=== PATIENT | female | born 1955 | race Caucasian/White ===

== ENCOUNTER 2019-10-29 08:57 | Outpatient (CLI) | payer OTHER, SELFPAY ==
--- NOTE | ~2019-10-29 | MM_ITS ---
EXAMINATION: MM screening [facility] BI w michel HISTORY: Screening mammogram TECHNIQUE: Craniocaudal and mediolateral oblique 3-D tomosynthesis images were obtained and synthetic 2-D images were generated. CAD analysis was submitted and interpreted. COMPARISON: 10/27/2018 BREAST PARENCHYMAL COMPOSITION: The breasts are heterogeneously dense, which may obscure small masses . FINDINGS: Stable bilateral breast asymmetries and benign appearing calcifications. There is no eviden ce of suspicious mass, calcification, or architectural distortion to suggest malignancy in either humberto ast. There has been no suspicious interval change. IMPRESSION: 1. No mammographic evidence of malignancy. 2. Recommend routine screening mammography in one year. BI-RADS Category 2: Benign finding(s). Reviewed, dictated and finalized at location A. ASE AND TECHNICAL RECORDS CLERK
== END 2019-10-29 08:58 | disposition home or self-care (01) ==
LOC: CHSIMG 09:02
PROVIDERS: PCP Family Medicine; Visit Provider Family Medicine
DX: Z12.31 Encounter for screening mammogram for malignant neoplasm of breast (principal)
CPT/HCPCS: 77063; 77067

== ENCOUNTER 2021-02-28 08:28 | Outpatient (CLI) | payer OTHER, SELFPAY ==
--- NOTE | ~2021-02-28 | MM_ITS ---
EXAMINATION: MM screening [facility] BI w michel HISTORY: Screening TECHNIQUE: Craniocaudal and mediolateral oblique 3-D tomosynthesis images were obtained and synthetic 2-D images were generated. CAD analysis was submitted and interpreted. COMPARISON: Comparison to multiple prior studies sequentially, with oldest reviewed study dated 10/27. BREAST PARENCHYMAL COMPOSITION: There are scattered areas of fibroglandular density. FINDINGS: Stable benign-appearing bilateral breast calcifications. There is no evidence of suspicious mass, calcification, or architectural distortion to suggest malignancy in either breast. There has b een no suspicious interval change. IMPRESSION: 1. No mammographic evidence of malignancy. 2. Recommend routine screening mammography in one year. BI-RADS Category 2: Benign finding(s). Reviewed, dictated and finalized at location A.
[2021-02-28 08:39] LABS: Hemoglobin 13.6 g/dL (12.0-15.0); Mean Corpuscular HGB Conc 33.2 g/dL (32.0-36.0); Mean Corpuscular Hemoglobin 30.8 pg (27.0-31.0); Mean Platelet Volume 8.9 fl (9.2-11.8); Platelet Count Result 312 K/mm3 (150-420); Red Blood Count 4.41 M/mm3 (4.20-5.40); Red Cell Distribution Width 11.9 % (11.6-14.4); White Blood Count 9.8 K/mm3 (4.8-10.8)
[2021-02-28 10:05] LABS: Alanine Aminotransferase 26 U/L (14-59); Albumin Level 3.9 g/dL (3.4-5.0); Alkaline Phosphatase 112 U/L (46-116); Anion Gap 10 mmol/L (8-16); Aspartate Amino Transferase 20 U/L (15-37); Bilirubin,Total 0.6 mg/dL (0.00-1.00); Blood Urea Nitrogen 12 mg/dL (7-18); Calcium 9.4 mg/dL (8.5-10.1); Carbon Dioxide 28 mmol/L (21-32); Chloride 106 mmol/L (98-108); Cholesterol 132 mg/dL (0-200); Estimated Glomerular Filt Rate > 60; Glucose 114 mg/dL (70-99); HDL Direct 47 mg/dL (40-60); LDL Cholesterol Calculated 60 mg/dL (<130); Osmolality Calculated 298 mOsm/kg (285-295); Potassium 5.2 mmol/L (3.5-5.1); Sodium 144 mmol/L (136-145); Triglycerides 125 mg/dL (0-150)
[2021-02-28 10:06] LABS: Thyroid Stimulating Hormone Reflex 1.01 u/IU/mL (0.36-3.74)
== END 2021-02-28 08:29 | disposition home or self-care (01) ==
PROVIDERS: PCP Family Medicine; Visit Provider Family Medicine
DX: E11.9 Type 2 diabetes mellitus without complications (principal); Z00.00 Encounter for general adult medical examination without abnormal findings; Z12.31 Encounter for screening mammogram for malignant neoplasm of breast
CPT/HCPCS: 36415; 77063; 77067; 80053; 80061; 84443; 85027

== ENCOUNTER 2021-08-27 10:33 | Outpatient (CLI) | payer OTHER, SELFPAY ==
--- NOTE | 2021-08-27 | ECG_ITS ---
Measurements Intervals [place] Rate: 65 P: 64 SC: 162 QRS: 32 QRSD: 137 T: 12 QT: 409 QTc: 426 Interpretive Statements SINUS RHYTHM RIGHT BUNDLE BRANCH BLOCK CONSIDER INFERIOR INFARCT, AGE INDETERMINATE BASELINE WANDER- I, II, AVR, AVL, AVF ABNORMAL ECG Electronically Signed On 08-27-2021 16:53:30 EMPLOYEE DEVELOPMENT MANAGER by Curtis Fuentes D.O.
[2021-08-27 11:19] LABS: Hematocrit 40.6 % (37.0-47.0); Hemoglobin 13.4 g/dL (12.0-15.0)
[2021-08-27 11:27] LABS: Albumin Level 4.5 g/dL (3.5-5.1); Estimated Glomerular Filt Rate > 60; Glucose 94 mg/dL (65-110)
[2021-08-27 12:12] LABS: Urine Cotinine NEGATIVE
== END 2021-08-27 10:34 | disposition home or self-care (01) ==
PROVIDERS: PCP Family Medicine; Visit Provider Orthopaedic Surgery
DX: M16.11 Unilateral primary osteoarthritis, right hip (principal); E78.5 Hyperlipidemia, unspecified; I25.10 Atherosclerotic heart disease of native coronary artery without angina pectoris; Z01.818 Encounter for other preprocedural examination; I45.10 Unspecified right bundle-branch block
CPT/HCPCS: 80307; 82040; 82565; 82947; 83036; 85014; 85018; 93005

== ENCOUNTER 2021-10-22 07:52 | Outpatient (CLI) | payer OTHER, SELFPAY ==
[2021-10-22 09:23] LABS: Basophils Absolute Auto 0.1 K/mm3 (0.0-0.1); Basophils Percent Auto 1.1 % (0.2-1.2); Eosinophils Absolute Auto 0.3 K/mm3 (0-0.3); Eosinophils Percent Auto 3.2 % (0-4.4); Hematocrit 40.5 % (37.0-47.0); Hemoglobin 13.1 g/dL (12.0-15.0); Immature Granulocyte Absolute 0.05 K/mm3 (0.00-0.031); Immature Granulocyte Percent A 0.5 % (0-0.5); Lymphocytes Absolute Auto 2.78 K/mm3 (0.9-3.2); Lymphocytes Percent Auto 28.7 % (18.3-44.2); Mean Corpuscular HGB Conc 32.3 g/dl (32-36); Mean Corpuscular Volume 92.9 fl (80-100); Mean Platelet Volume 9.1 fl (7.4-10.4); Monocytes Absolute Auto 0.8 K/mm3 (0.1-0.6); Monocytes Percent Auto 7.8 % (2.6-8.5); Neutrophils Absolute Auto 5.7 K/mm3 (1.3-6.7); Neutrophils Percent Auto 58.7 % (45.5-73.1); Platelet Count Result 315 k/mm3 (150-375); Red Blood Count 4.36 M/mm3 (4.2-5.4); Red Cell Distribution Width 12.3 % (11.5-14.5); White Blood Count 9.7 K/mm3 (4.5-10.0)
[2021-10-22 09:33] LABS: Albumin Level 4.4 g/dL (3.5-5.1); Estimated Glomerular Filt Rate > 60; Glucose 107 mg/dL (65-110)
[2021-10-22 09:45] LABS: Urine Cotinine NEGATIVE
== END 2021-10-22 07:53 | disposition home or self-care (01) ==
LOC: ANHSURGERY 08:03
PROVIDERS: PCP Family Medicine; Visit Provider Orthopaedic Surgery
DX: M16.11 Unilateral primary osteoarthritis, right hip (principal); Z01.818 Encounter for other preprocedural examination
CPT/HCPCS: 80307; 82040; 82565; 82947; 85025; 87081

== ENCOUNTER 2021-11-09 15:34 | Observation (INO) | payer OTHER, SELFPAY ==
[2021-10-22 08:09] VITALS: BMI 25.0
--- NOTE | 2021-10-22 08:35 | PC.NURSE ---
Report to the Outpatient Waiting Room, entrance under the green pavilion located off [facility], at time 0600 on date __11/08/21 . OR Time: _729 . - You and your visitor will be asked a series of questions to screen for COVID 19 for your protection. - A mask is required within the hospital. Preoperative COVID Testing Requirements: No COVID Test needed if: (proof is required; if not received patient will have Rapid Test prior to entry) - Patient has received COVID Vaccine at least 14 days prior to procedure date or - Patient has positive COVID test result within last 90 days of surgery date. COVID Test needed if above criteria is not met If not COVID vaccinated a COVID test must be conducted within 72 hours of surgery and patient is asked to isolate self from time of testing until procedure. You will go to the [facility] for your COVID testing. The [facility] is located at the corner of [address] [facility]. You will only be called if COVID results are positive and your surgeon may reschedule your elective surgery date. Patients may have clear liquids (water, carbonated beverages, clear teas, apple juice) until 3 hours prior to surgery with a maximum of 20 ounces. - No food from midnight until time of surgery - Infants may have breast milk until 4 hours before surgery, infant formula 6 hours prior to surgery. - Children will be allowed to drink immediately following surgery. If applicable, please bring a bottle or sippy cup to assist with drinking. Juice, water, soda, and popsicles are readily available. For infants on formula, please bring formula the day of surgery. Pacifiers are allowed. Take the following medications with a SIP of water the morning of surgery: _METOPROLOL,SERTRALINE Medications to discontinue per physician ASPIRIN AND PLAVIX 7 DAYS PRE OP Date to take last dose_10/31/21 Please no make-up, nail [place], hairspray, perfume, deodorant, or body powder the day of surgery. No jewelry (including any body piercings) or valuables the day of surgery, leave them at home. Please take a shower or bath the night before, or the morning of, surgery with an antibacterial soap. Wear comfortable, loose fitting clothing. Children are encouraged to wear pajamas. - Jewelry must be removed prior to entering the operating room. Rings and piercings that are not removed may be cut off. - The hospital will not accept responsibility for valuables. - Please leave all valuables, including medications, at home the day of surgery. If you are going home after surgery, a licensed courtesy van driver must drive you home. - NO public transportation without another adult. - We recommend that an adult stay with you for 24 hours following discharge. - We also recommend that you do not drive, make important decision, drink alcoholic beverages, or take any drugs that were not prescribed by your health care provider for at least 24 hours after your discharge time. For Pediatric surgeries, we recommend two adults accompany the child home (only one inside the building at this time). One visitor will be allowed to accompany the patient into the hospital. Patients visitor will be instructed to remain with patient at all times or leave the building. We will allow the visitor to come back to the postoperative area when patient is ready. Follow any additional instructions given to you from your surgeon. VERBAL/WRITEN instructions given to __PATIENT and asked if any additional questions and then verbalized understanding. Patient advised to call surgeon office or pre surgery nurse liaison [phone] if any additional questions.
[2021-10-22 08:49] VITALS: BP 131/74; PULSE 70; RESP 18; TEMP 36.6; O2SAT 99
--- NOTE | 2021-11-07 12:35 | WPDANESEPPF ---
Anes - Initial Pre Proc Eval Procedure: Operation Date: 11/08/21 07:30 Proposed Procedures p Right Total Hip Arthroplasty - Baldev Aguirre MD Date/Time: 11/07/21 12:35 Surgeon: Baldev Aguirre MD Pre Op Diagnosis: primary oa right hip Patient Data Age: 65 Gender: F Height: 1.71 m Weight: 73.7 kg Last Vital Signs Temp 36.6 C 10/22/21 08:49 Pulse 70 10/22/21 08:49 Resp 18 10/22/21 08:49 BP 131/74 10/22/21 08:49 Pulse Ox 99 10/22/21 08:49 Allergies Allergy/AdvReac Type Severity Reaction Status Date / Time Penicillins AdvReac Mild RASH Verified 11/08/21 06:04 CHILD Home Medications Medication Instructions Recorded Confirmed Type aspirin 81 mg tablet,delayed 81 mg PO DAILY #90 tablet 09/28/19 11/08/21 Rx release clopidogrel 75 mg tablet 75 mg PO DAILY #90 tablet 12/27/19 11/08/21 Rx sertraline 25 mg tablet 25 mg PO DAILY #90 tablet 05/22/21 11/08/21 Rx metoprolol tartrate 12.5 mg PO BID 07/02/21 11/08/21 History atorvastatin 40 mg PO QPM 10/22/21 11/08/21 History Patient hx anesthesia problems: none Family hx anesthesia problems: none Results Review: All pre-operative results and documents have been reviewed as part of the pre-operative evaluation. 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 42 pack-year history Living arrangements: with family Additional living arrangements comments: . 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 Informed Consent: The patient's anesthetic plan and its attendant risks and benefits were discussed with the patient/family/POA. Questions were solicited and answers provided to the satisfaction of the patient/family/POA.
[2021-11-08] VITALS (13 sets, daily range): BP systolic 106–134; BP diastolic 54–71; PULSE 69–84; RESP 12–20; TEMP 36.1–36.6; O2SAT 93–100
[2021-11-08] MEDS: LACTATED RINGERS 1,000 ML 30 ML IV CONT (06:25)
[2021-11-08] MEDS: ACETAMINOPHEN 500 MG TABLET 1000 MG PO (06:42)
[2021-11-08] MEDS: TRANEXAMIC ACID 1,000MG/ISO100 1,000 MG/100 ML BAG 200 MG IVPB (07:05)
--- NOTE | 2021-11-08 07:22 | WPDHPUPDATE1 ---
History and Physical Update Update Date/Time: 11/08/21 07:22 History and Physical has been reviewed, including an updated exam of the patient. There are NO changes in the patient's condition. Risks, benefits, and alternatives have been discussed and questions answered. Patient agrees to proceed with procedure.
[2021-11-08] MEDS: ceFAZolin 2 GM/D5W 50 ML 2 GM/50 ML BAG IVPB ×2 (07:38→16:17)
--- NOTE | 2021-11-08 11:00 | SUR.PHASEI ---
1027 2 VIEWS OF XRAY TAKEN OF RT HIP IN PACU.
[2021-11-08] MEDS: SODIUM CHLORIDE 0.9% IV 1,000 ML 125 ML IV CONT (11:46)
--- NOTE | 2021-11-08 13:07 | PCOTNOTE ---
Attempted to see pt. for evaluation. Pt. finishing up with physical therapy, reporting that she almost had syncopal episode while ambulating and needs to rest.
--- NOTE | 2021-11-08 17:13 | W.PM.PROC2 ---
Procedure Note - Detailed Date of Procedure 11/08/21 Pre-op Diagnosis Primary oa right hip Post-op Diagnosis Other ( 1. Primary osteoarthritis right hip. 2. Abductor tendon tear.) Procedure Performed Right Total Hip Arthroplasty Surgeon Baldev Aguirre MD Car Shifter Gisell Zazueta PA-C Anesthesia General Findings High-grade partial abductor muscle tendon disruption. Repair accomplished with multiple #5 Ethibond Sridhar-Kobe sutures through bone. Description of Procedure The patient was given preoperative antibiotics. A general anesthetic was administered. The patient was carefully placed in the lateral decubitus position on the PEG board. The shoulders and hips were carefully positioned for component and leg length positioning reference. The hip was prepped and draped in the usual sterile fashion. A longitudinal incision was created over the posterior aspect of the greater trochanter. Careful dissection was brought down through the deep fascia with electrocautery. A minimally invasive optimized posterior approach to the hip was performed. The short external rotators and capsule were taken down in an L-shaped capsulotomy. The tissue was tagged for later repair using number 2 high strength suture. The femoral neck was measured and taken in situ. The femoral head was removed. The acetabulum was carefully exposed. The inferior capsule was released. The labrum was resected. The acetabulum was sequentially reamed to one over the intended cup size. The cup was impacted into position with excellent press-fit. Typical anatomic landmarks, including the bony contact points as well as the inferior transverse acetabular ligament were used to confirm cup positioning with preoperative templating. Attention was turned to the femur, which was carefully exposed. The hip was reamed and then broached sequentially. Excellent press-fit was obtained with the broach. The hip was trialed. Measurements were utilized, including the lesser trochanter as well as the center of the femoral head and the tip of the trochanter, and excellent assessment of the offset and leg lengths were confirmed. The real component was impacted into position. Trialing confirmed appropriate leg length and offset with soft tissue balancing as well apparent feel of the leg, both at the knee and the heel. Soft tissues were assessed using the the iliotibial band. Reduction of the posterior capsule and external rotators were also used as a secondary assessment. The hip was copiously irrigated with pulsatile lavage antibiotic solution periodically throughout the procedure. The real components were then assembled and reduced. The hip was stable throughout typical maneuvers, including extension, external rotation to 70 degrees, the position of sleep as well as flexion to 90 degrees with internal rotation past 45 degrees. The shake test confirmed stability without impingement. Osteophytes were removed as necessary. Attention was turned to the gluteus medius abductor injury. High-grade partial bursal sided tearing. This was mobilized and repaired with multiple heavy Ethibond Sridhar-Kobe sutures. Free needle was used as necessary to pass deep through the trochanteric bone. The repair was quite davis. The short external rotators and capsule were then repaired back to the posterior trochanter through drill holes. The deep fascia was repaired with running number 2 Quill suture, followed by 0 Stratafix suture and 2-0 Stratafix suture in the dermis. Steri-Strips were placed on the skin, followed by a sterile silver occlusive dressing. There were no complications. Meticulous hemostasis was maintained with the AquaMantys device. The patient was brought to the recovery room in stable condition. There were no complications. Implants The Accolade II hip stem, 127 degree size 6 , was utilized with excellent press-fit. The 52 mm Trident II acetabular component was impacted with excellent pre
[2021-11-08] MEDS: ATORVASTATIN 40 MG TABLET PO (17:51)
[2021-11-08] MEDS: METOPROLOL TARTRATE 12.5 MG TABLET PO (20:23)
[2021-11-08] MEDS: FAMOTIDINE 20 MG TABLET PO (20:23)
[2021-11-08] MEDS: SENNA/DOCUSATE SODIUM TABLET 2 TAB PO (20:23)
[2021-11-09] VITALS (8 sets, daily range): BP systolic 102–107; BP diastolic 53–58; PULSE 73–90; RESP 14–16; TEMP 36.6–36.9; O2SAT 94–100
--- NOTE | ~2021-11-09 | XR_ITS ---
EXAMINATION: XR chest 1V portable DATE: 11/10/2021 02:51 INDICATION: Shortness of breath. TECHNIQUE: A single frontal view of the chest was obtained. COMPARISON: Chest 2 views 05/25/2018, chest CT 11/10/2021 FINDINGS: There is a diffuse interstitial pattern in the lungs. There are mild airspace opacities in the perihilar regions. No pleural effusion or pneumothorax. The heart size is normal. Calcified media stinal lymph nodes are consistent with old granulomatous disease. Median sternotomy wires are noted. IMPRESSION: 1. Diffuse lung disease, likely mild pulmonary edema. Reviewed, dictated and finalized at location A. [employer] SALESPERSON
--- NOTE | ~2021-11-09 | XR_ITS ---
EXAMINATION: XR hip RT min 2V DATE: 11/08/2021 10:30 INDICATION: Total right hip arthroplasty. Postop. TECHNIQUE: 2 views of right hip were obtained. COMPARISON: Right hip radiographs 07/11/2021 FINDINGS: There is a total right hip arthroplasty in near-anatomic alignment. No fracture. There is g as in the soft tissues, consistent with recent surgery. IMPRESSION: 1. Total right hip arthroplasty in near-anatomic alignment. Reviewed, dictated and finalized at location A. TER PATTERN CASTER
--- NOTE | ~2021-11-09 | CT_ITS ---
EXAMINATION: CTA chest PE protocol DATE: 11/10/2021 04:28 INDICATION: Shortness of breath. TECHNIQUE: Computed tomography angiography (CTA) of the chest was performed with 100 mL Omnipaque-350 intravenous contrast timed to evaluate the pulmonary arteries. Coronal maximum intensity projection 3D-reconstructions were created by the technologist. Automated exposure control and iterative reconst ruction technique were employed. The dose-length product was 395.31 mGy-cm. COMPARISON: Chest CT 10/27/2018 FINDINGS: The lungs demonstrated diffuse smooth septal thickening. There are patchy groundglass opaci ties in the upper lobes and lower lobes with a lower lobe predominance. There is a cluster of centril obular nodules in right lower lobe. There is mild emphysema. Calcified mediastinal lymph nodes are co nsistent with old granulomatous disease. There are small pleural effusions. The heart size is normal. There are changes of coronary artery bypass grafting. There is no pulmonary embolus. Calcifications in the liver and spleen are consistent with old granulomatous disease. There is mild thoracic spondyl osis. IMPRESSION: 1. No pulmonary embolus. 2. Diffuse lung disease, likely moderate pulmonary edema. 3. Small pleural effusions. 4. Chronic cluster of centrilobular nodules in right lower lobe, consistent with infection/inflammati on. 5. Mild emphysema. Reviewed, dictated and finalized at location A. ST IMPRESSION: 1. No pulmonary embolus. 2. Diffuse lung disease, likely moderate pulmonary edema. 3. Small pleural effusions. 4. Chronic cluster of centrilobular nodules in right lower lobe, consistent wit h infection/inflammation. 5. Mild emphysema.
[2021-11-09] MEDS: ceFAZolin 2 GM/D5W 50 ML 2 GM/50 ML BAG IVPB ×2 (00:03→08:22)
[2021-11-09] MEDS: CYCLOBENZAPRINE HCL 10 MG TABLET PO (03:24)
--- NOTE | 2021-11-09 08:07 | PCPTNOTE ---
Patient refused treatment this session due to patient wanting to rest at this time. Patient reported she did not sleep good last night and she just got back to bed and wants to rest at this time.
[2021-11-09] MEDS: FAMOTIDINE 20 MG TABLET PO ×2 (08:22→21:07)
[2021-11-09] MEDS: METOPROLOL TARTRATE 12.5 MG TABLET PO ×2 (08:22→21:07)
[2021-11-09] MEDS: SERTRALINE HCL 25 MG TABLET PO (08:22)
[2021-11-09] MEDS: polyethylene glycoL 3350 17 GM POWD.PACK PO (08:22)
[2021-11-09] MEDS: SENNA/DOCUSATE SODIUM TABLET 2 TAB PO ×2 (08:23→21:07)
[2021-11-09] MEDS: ASPIRIN 81 MG ENTERIC TABLET PO (08:23)
[2021-11-09] MEDS: CLOPIDOGREL BISULFATE 75 MG TABLET PO (08:23)
[2021-11-09] MEDS: oxyCODONE HCL (*CRX) 5 MG TAB IR PO ×4 (08:30→21:07)
--- NOTE | 2021-11-09 09:31 | WPDANESPN ---
Anes - Prog Note Post-Op Date/Time: 11/09/21 09:31 Cardiovascular status: normal Respiratory status: normal Airway patency: baseline Mental status: baseline Post-Op hydration status: normal Vital Signs: Last Vital Signs Temp 36.9 C 11/09/21 05:04 Pulse 80 11/09/21 08:22 Resp 14 11/09/21 05:04 BP 107/58 L 11/09/21 05:04 Pulse Ox 100 11/09/21 05:04 Pain Score (VAS): 0 I/O: Intake & Output 11/08/21 11/09/21 11/09/21 23:59 07:59 15:59 Intake Total 1600 550 Output Total 700 Balance 1600 -150 Post-procedural complaints: none Patient Feedback: Patient satisfied with anesthetic care.
--- NOTE | 2021-11-09 14:21 | PM.PNORT ---
Progress Note: A&P Assessment and Plan (1) Status post total hip replacement, right: Code(s): Z96.641 - Presence of right artificial hip joint Status: Acute Assessment and Plan: Postop day 1: Right total Hip arthroplasty. Patient tolerated procedure well. Abductor tendon repair as well. No numbness or tingling. Having trouble with pain control and PT. She will need to be partial weight bearing with a walker for 3 months. Due to pain control issues and abductor tendon repair, patient will be discharged tomorrow. We had a lengthy discussion regarding postoperative wound care, limitations, expectations, and exercises. Patient shows good understanding. He has had initial physical therapy and is tolerating it well. DVT prophylaxis: 81 mg baby aspirin b.i.d. for 14 days. May resume home Plavix. Compression socks. Short frequent walks. Pain medication: Percocet. Patient has followup appointment with Dr. Aguirre in 3 weeks. Subjective Subjective Date/Time Seen: 11/09/21 14:21 Patient is having difficulty controlling pain and is having some difficulty with PT. No other complaints. Review of Systems Review of Systems: All systems reviewed & are unremarkable except as noted in HPI and below Exam Narrative: Thin,65 y/o female. Resting comfortably in chair. Wearing compression socks bilaterally. Dressing dry and intact with no drainage. Moderate swelling. No ecchymosis. No erythema. No hematoma. Range of motion limited due to pain. Calf nontender. Thigh nontender. Neurologic status intact. No varicosities. Distal pulses palpable. Objective Data Vital Signs Vital Signs: Vital Signs - 24 hr 11/08/21 17:59 11/08/21 21:18 11/09/21 01:03 Temperature 97.8 F 97.4 F L 98.2 F Pulse Rate 71 72 73 Respiratory Rate 18 14 14 Blood Pressure 130/68 106/55 L 104/53 L Pulse Oximetry 99 97 96 11/09/21 05:04 11/09/21 08:22 11/09/21 10:00 Temperature 98.5 F 97.8 F Pulse Rate 80 80 79 Respiratory Rate 14 16 Blood Pressure 107/58 L 104/53 L Pulse Oximetry 100 95 11/09/21 14:00 Temperature 98.2 F Pulse Rate 80 Respiratory Rate 16 Blood Pressure 105/55 L Pulse Oximetry 98 Intake/Output Intake/Output: Intake & Output 11/06/21 11/07/21 11/08/21 11/09/21 23:59 23:59 23:59 23:59 Intake Total 1850 790 Output Total 700 Balance 1850 90 Meds/Results Medications: Active Medications Generic Name Dose Route Start Last Admin Trade Name Freq PRN Reason Stop Dose Admin Acetaminophen 650 mg 11/08/21 11:19 Acetaminophen 325 Mg Tablet PO Q6H PRN Mild Pain (1-3) or Fever Aspirin 81 mg 11/09/21 09:00 11/09/21 08:23 Aspirin 81 Mg Enteric Tablet PO 81 mg DAILY RASHID Administration Atorvastatin Calcium 40 mg 11/08/21 18:00 11/08/21 17:51 Atorvastatin 40 Mg Tablet PO 40 mg QPM RASHID Administration Clopidogrel Bisulfate 75 mg 11/09/21 09:00 11/09/21 08:23 Clopidogrel Bisulfate 75 Mg Tablet PO 75 mg DAILY RASHID Administration Cyclobenzaprine HCl 10 mg 11/08/21 11:19 11/09/21 03:24 Cyclobenzaprine Hcl 10 Mg Tablet PO 10 mg Q8H PRN Administration Muscle Spasm Famotidine 20 mg 11/08/21 21:00 11/09/21 08:22 Famotidine 20 Mg Tablet PO 20 mg Q12HR RASHID Administration Metoprolol Tartrate 12.5 mg 11/08/21 21:00 11/09/21 08:22 Metoprolol Tartrate 12.5 Mg Tablet PO 12.5 mg Q12HR RASHID Administration Naloxone HCl 0.1 mg 11/08/21 11:19 Naloxone Hcl 0.4 Mg/Ml Vial IV PUSH Q2M PRN Opiate Reversal Ondansetron HCl 4 mg 11/08/21 11:19 Ondansetron Inj 4 Mg/2 Ml Vial IV PUSH Q4H PRN Nausea And Vomiting Oxycodone HCl 5 mg 11/08/21 11:19 11/09/21 12:37 Oxycodone Hcl (*Crx) 5 Mg Tab Ir PO 5 mg Q4H PRN Administration Pain Rated 4-6 Oxycodone HCl 10 mg 11/08/21 11:19 Oxycodone Hcl (*Crx) 5 Mg Tab Ir PO Q4H PRN Pain Rated 7-10 Polyethylene Glycol 17 gm 11/09
--- NOTE | 2021-11-09 14:38 | P.DS_ITS ---
DS: Admitting Diagnosis Discharge Date 11/10/21 Admitting Diagnosis OA Right hip DS: Discharge Diagnosis Discharge Diagnosis (1) Status post total hip replacement, right: Code(s): Z96.641 - Presence of right artificial hip joint Status: Acute Assessment and Plan: Postop day 2: Right total Hip arthroplasty. Patient tolerated procedure well. Abductor tendon repair as well. No numbness or tingling. Having trouble with pain control and PT. She will need to be partial weight bearing with a walker for 3 months. We had a lengthy discussion regarding postoperative wound care, limitations, expectations, and exercises. Patient shows good understanding. He has had initial physical therapy and is tolerating it well. DVT prophylaxis: 81 mg baby aspirin b.i.d. for 14 days. May resume home Plavix. Compression socks. Short frequent walks. Pain medication: Percocet. Patient has followup appointment with Dr. Aguirre in 3 weeks. DS: Summary Hospital Course Reason for hospitalization: Total hip arthroplasty Hospital Course: Patient tolerated procedure well. Has had initial PT/OT and made good progress. Status at Discharge Functional status at discharge: uses cane/walker Overall status at discharge: patient is progressing back to baseline Time Spent with Patient Time attestation: Total time spent providing and/or coordinating discharge services: Exam Narrative: Overweight 65 y/o female. Resting comfortably in bed. Wearing compression socks bilaterally. Dressing dry and intact with no drainage. Moderate swelling. No ecchymosis. No erythema. No hematoma. Range of motion limited due to pain. Calf nontender. Thigh nontender. Neurologic status intact. No varicosities. Distal pulses palpable. Discharge Plan Discharge Patient Disposition: Home, Self-Care Discharge Instructions: See green instruction sheet Stand Alone Forms: General Discharge Instructions Follow-up/Referrals: Gisell Zazueta PA [Physician Psychologist Chief] - Discharge Medications: New oxycodone-acetaminophen 5-325 mg tablet 1 - 2 tablet PO Q4-6H MDD 6 PRN (Reason: pain) Qty: 30 RF: 0 Continued aspirin [Adult Low Dose Aspirin] 81 mg tablet,delayed release (DR/EC) 81 mg PO DAILY Qty: 90 RF: 0 atorvastatin 40 mg tablet 40 mg PO QPM RF: 0 metoprolol tartrate 25 mg tablet 12.5 mg PO BID RF: 0 clopidogrel [Plavix] 75 mg tablet 75 mg PO DAILY Qty: 90 RF: 1 sertraline 25 mg tablet 25 mg PO DAILY Qty: 90 RF: 2
--- NOTE | 2021-11-09 16:20 | PM.PNORT ---
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 She has more pain than she did after the contralateral hip. Mobilization is slow. Examination Mild swelling. No drainage. Neurologic status intact. Impression Slow early progress after total hip arthroplasty due to the abductor muscle repair. We discussed the risks associated with future weakness. Recommend she use the walker for list 6 weeks and possibly 3 months. She should stay another night for pain control and observation. Plan to discharge home in the morning. Subjective Subjective Date/Time Seen: 11/09/21 16:20 Objective Data Vital Signs Vital Signs: Vital Signs - 24 hr 11/08/21 17:59 11/08/21 21:18 11/09/21 01:03 Temperature 36.6 C 36.3 C L 36.8 C Pulse Rate 71 72 73 Respiratory Rate 18 14 14 Blood Pressure 130/68 106/55 L 104/53 L Pulse Oximetry 99 97 96 11/09/21 05:04 11/09/21 08:22 11/09/21 10:00 Temperature 36.9 C 36.6 C Pulse Rate 80 80 79 Respiratory Rate 14 16 Blood Pressure 107/58 L 104/53 L Pulse Oximetry 100 95 11/09/21 14:00 Temperature 36.8 C Pulse Rate 80 Respiratory Rate 16 Blood Pressure 105/55 L Pulse Oximetry 98 Intake/Output Intake/Output: Intake & Output 11/06/21 11/07/21 11/08/21 11/09/21 23:59 23:59 23:59 23:59 Intake Total 1850 790 Output Total 700 Balance 1850 90 Meds/Results Medications: Active Medications Generic Name Dose Route Start Last Admin Trade Name Freq PRN Reason Stop Dose Admin Acetaminophen 650 mg 11/08/21 11:19 Acetaminophen 325 Mg Tablet PO Q6H PRN Mild Pain (1-3) or Fever Aspirin 81 mg 11/09/21 09:00 11/09/21 08:23 Aspirin 81 Mg Enteric Tablet PO 81 mg DAILY RASHID Administration Atorvastatin Calcium 40 mg 11/08/21 18:00 11/08/21 17:51 Atorvastatin 40 Mg Tablet PO 40 mg QPM RASHID Administration Clopidogrel Bisulfate 75 mg 11/09/21 09:00 11/09/21 08:23 Clopidogrel Bisulfate 75 Mg Tablet PO 75 mg DAILY RASHID Administration Cyclobenzaprine HCl 10 mg 11/08/21 11:19 11/09/21 03:24 Cyclobenzaprine Hcl 10 Mg Tablet PO 10 mg Q8H PRN Administration Muscle Spasm Famotidine 20 mg 11/08/21 21:00 11/09/21 08:22 Famotidine 20 Mg Tablet PO 20 mg Q12HR RASHID Administration Metoprolol Tartrate 12.5 mg 11/08/21 21:00 11/09/21 08:22 Metoprolol Tartrate 12.5 Mg Tablet PO 12.5 mg Q12HR RASHID Administration Naloxone HCl 0.1 mg 11/08/21 11:19 Naloxone Hcl 0.4 Mg/Ml Vial IV PUSH Q2M PRN Opiate Reversal Ondansetron HCl 4 mg 11/08/21 11:19 Ondansetron Inj 4 Mg/2 Ml Vial IV PUSH Q4H PRN Nausea And Vomiting Oxycodone HCl 5 mg 11/08/21 11:19 11/09/21 12:37 Oxycodone Hcl (*Crx) 5 Mg Tab Ir PO 5 mg Q4H PRN Administration Pain Rated 4-6 Oxycodone HCl 10 mg 11/08/21 11:19 Oxycodone Hcl (*Crx) 5 Mg Tab Ir PO Q4H PRN Pain Rated 7-10 Polyethylene Glycol 17 gm 11/09/21 09:00 11/09/21 08:22 Polyethylene Glycol 3350 17 Gm Powd.Pack PO 17 gm QAM RASHID Administration Senna/Docusate Sodium 2 tab 11/08/21 21:00 11/09/21 08:23 Senna/Docusate Sodium Tablet PO 2 tab Q12HR RASHID Administration Sertraline HCl 25 mg 11/09/21 09:00 11/09/21 08:22 Sertraline Hcl 25 Mg Tablet PO 25 mg DAILY RASHID Administration Radiology Results: ITS Impressions Hip X-Ray 11/08/21 10:45 IMPRESSION: 1. Total right hip arthroplasty in near-anatomic alignment.
[2021-11-09] MEDS: ATORVASTATIN 40 MG TABLET PO (17:37)
[2021-11-10] VITALS (22 sets, daily range): BP systolic 70–109; BP diastolic 45–71; PULSE 79–107; RESP 16–30; TEMP 36.1–37.2; O2SAT 75–100
--- NOTE | 2021-11-10 | ECHO_ITS ---
Patient Info Name: Jorge Min Age: 65 years : 1955 Gender: Female Ht: 67 in Wt: 159 lbs BSA: 1.86 m2 HR: 83 bpm BP: 97 / 65 mmHg Heart Rhythm: Sinus Rhythm Technical Quality: Fair Exam Date: 11/10/2021 9:26 AM Exam Location: [facility] Pulmonary Exam Room: ICU1 Patient Status: Inpatient Admit Date: 11/09/2021 Staff Ordering Physician: Tanisha Veloz MD Pulp Bleacher: Rose Rainey RDCS Attending Provider: Baldev Aguirre MD Referring Physician: Roselia SCHMIDT; Exam Type: CA echo dop color flow w con Study Info Indications - HIGH RISK PCI Complete two-dimensional, color flow and Doppler transthoracic echocardiogram is performed with contrast to opacify the left ventricle and to improve the deliniation of the left ventricle endocardial borders. Contrast/Agitated Saline Contrast/Ag. Saline: Definity Amount: 2.00 ml Administered By: Rose Rainey [facility] Existing IV Access: Yes IV Access Condition: patent with no signs of infiltration Summary 1. Normal left ventricular size and thickness. Akinesis of the mid and distal anterior wall, distal septum, and apical segments. Moderate hypokinesis of the inferior wall. Ejection fraction calculated to be 42%, visually 40-45%. Grade 2 diastolic dysfunction is present. 2. Normal sinus rhythm. 3. Left atrial chamber dimension is mildly enlarged. 4. There is mild mitral valve regurgitation. 5. There is mild tricuspid valve regurgitation. 6. Moderate pulmonary hypertension, estimated pulmonary arterial systolic pressure is 57 mmHg. 7. Somewhat technically difficult study; definity echo contrast used. Left Ventricle Left ventricular chamber dimension is normal. Left ventricular systolic function is moderately reduced, estimated at 40-45%. There is no increased left ventricular wall thickness. Left ventricular septal wall motion is normal. The left ventricular diastolic function is grade II diastolic dysfunction. Right Ventricle Right ventricular chamber dimension is normal. Right ventricular systolic function is normal. Left Atria Left atrial chamber dimension is mildly enlarged. Right Atria Right atrial chamber dimension is normal. Aortic Valve The aortic valve is trileaflet. There is mild aortic valve sclerosis. There is no aortic valve stenosis. There is no aortic valve regurgitation. Pulmonic Valve The pulmonic valve is normal. There is no pulmonic valve stenosis. There is no pulmonic regurgitation. Mitral Valve The mitral valve has normal leaflets. There is no mitral valve stenosis. There is mild mitral valve regurgitation. Tricuspid Valve The tricuspid valve leaflets are normal. There is no significant tricuspid valve stenosis. There is mild tricuspid valve regurgitation. Moderate pulmonary hypertension, estimated pulmonary arterial systolic pressure is 57 mmHg. Pericardium/Pleural The pericardium appears normal. There is no pericardial effusion. Inferior Vena Cava Normal inferior vena cava with >50% collapse upon inspiration consistent with Empty right atrial pressure, 10 mmHg. Aorta The aortic root size at the sinus of Valsalva is normal. The prox ascending aorta size is normal. Left Ventricular Outflow Tract Name Value Normal
[2021-11-10] MEDS: SODIUM CHLORIDE 0.9% IV 500 ML 999 ML IV CONT (01:10)
--- NOTE | 2021-11-10 02:31 | ECG_ITS ---
Measurements Intervals [place] Rate: 104 P: 66 IN: 150 QRS: 42 QRSD: 128 T: 37 QT: 366 QTc: 483 Interpretive Statements SINUS TACHYCARDIA INDETERMINATE AXIS RIGHT BUNDLE BRANCH BLOCK [120+ ms QRS DURATION, UPRIGHT V1, 40+ ms S IN I/aVL/V4/V5/V6] MARKED DIFFUSE ST DEPRESSION, CONSIDER SUBENDOCARDIAL INJURY [0.2+ mV ST DEPRESSION] COMPARED TO ECG 08/27/2021 11:10:08 [address] AND DIFFUSE [address] DEPRESSION NOW PRESENT Electronically Signed On 11-10-2021 13:18:07 SENIOR PARTNER by Brianna Pop M.D.
[2021-11-10 03:01] LABS: Alveolar/Arterial O2 Gradient 221.4 mmHg; Base Excess ABG -3.3 mEq/l (+/-2.0); Carboxyhemoglobin 0.1 % THb (0-2.0); Fractional Inspired Oxygen 45 %; Methemoglobin ABG 0.4 %THb (0-1.5); Oxygen Content ABG 14.2 %vol (16.0-22.0); Oxyhemoglobin 86.4 % THb (90.0-100.0); PO2 ABG 59.6 mmHg (80.0-100.0); PO2 FiO2 Ratio Arterial Blood 1.32 %; Reduced Hemoglobin 13.1 %THb (0-5.0); Site Drawn RIGHT BRACHIAL; Total Hemoglobin 11.7 g/dL (12.0-18.0); pH ABG 7.395 (7.350-7.450)
[2021-11-10 03:02] LABS: Device NASAL CANNULA
[2021-11-10 03:14] LABS: Hemoglobin 10.6 g/dL (12.0-15.0); Mean Corpuscular HGB Conc 30.3 g/dl (32-36); Mean Corpuscular Hemoglobin 30.5 pg (26-34); Mean Corpuscular Volume 100.9 fl (80-100); Mean Platelet Volume 9.2 fl (7.4-10.4); Platelet Count Result 268 k/mm3 (150-375); Red Blood Count 3.47 M/mm3 (4.2-5.4)
[2021-11-10 03:43] LABS: Alanine Aminotransferase 16 U/L (4-35); Albumin Level 3.4 g/dL (3.5-5.1); Alkaline Phosphatase 71 U/L (38-126); Anion Gap 4 mmol/L (8-16); Aspartate Amino Transferase 63 U/L (14-36); Bilirubin,Total 1.1 mg/dL (0.2-1.3); Blood Urea Nitrogen 14 mg/dL (7-17); Calcium 7.7 mg/dL (8.4-10.2); Carbon Dioxide 23 mmol/L (22-30); Chloride 107 mmol/L (98-107); Estimated CRCL calculation 70 ml/min; Estimated Glomerular Filt Rate > 60; Glucose 137 mg/dL (65-110); Potassium 3.9 mmol/L (3.4-5.0); Sodium 134 mmol/L (137-145)
[2021-11-10 03:52] LABS: NT Pro B Type Natriuretic Pept 3740 pg/mL (5-100)
--- NOTE | 2021-11-10 04:12 | PM.IMCN ---
Assessment and Plan Assessment and plan (1) Cardiogenic shock: Code(s): R57.0 - Cardiogenic shock Status: Acute (2) Non-STEMI (non-ST elevated myocardial infarction): Code(s): I21.4 - Non-ST elevation (NSTEMI) myocardial infarction Status: Acute (3) Acute respiratory failure with hypoxia: Code(s): J96.01 - Acute respiratory failure with hypoxia Status: Acute (4) Status post total hip replacement, right: Code(s): Z96.641 - Presence of right artificial hip joint Status: Acute Additional Plan Patient developed sudden hypotension and profuse diaphoresis. EKG confirmed evidence of subendocardial injury. Patient developed acute hypoxic respiratory failure after minimal IV fluid bolus. Imaging demonstrated pulmonary vascular congestion an EKG confirm sub endocardial injury. Patient has been transferred to the ICU the children's zoo caretaker and virtualization architect were consulted. Patient was started on a heparin drip per protocol. Stat CT of the chest was negative for pulmonary embolism. Patient was started on Levophed for pressor support as discussed above. Patient received IV Lasix and a Deleon catheter was placed. Repeat EKG was per formed and cardiology was updated as to the patient's condition. Patient was subsequently taken to label folder. Serial troponins have been ordered. Will titrate supplemental oxygen to maintain O2 sats of 92%. Patient is currently on 12 L nasal cannula. Given patient's leukocytosis S she has been placed on empiric antibiotic therapy with Rocephin and azithromycin. Blood cultures have been obtained. 120 minutes spent in critical care activities. Due to a high probability of clinically significant, life threatening deterioration, the patient required my highest level of preparedness to intervene emergently and I personally spent this critical care time directly and personally managing the patient. This critical care time included obtaining a history; examining the patient; pulse oximetry; ordering and review of studies; arranging urgent treatment with development of a management plan; evaluation of patient's response to treatment; frequent reassessment; and discussions with other providers. It was exclusive of separately billable procedures and treating other patients and teaching time. Please see Assessment and Plan section and the rest of the note for further information on patient assessment and treatment. HPI Data of Consult Consult date: 11/10/21 Requesting Physician: Baldev Aguirre MD Primary Care Provider: Kelby Lew DO Consult Narrative Narrative: Jorge Min is a 65 year old female with a past medical history of hypertension, hyperlipidemia and multivessel coronary artery disease status post CABG who underwent right hip replacement 11/08/2021 who suddenly severe diaphoresis and was noted to be hypotensive. Nursing staff went to check the patient's routine vitals and no the patient's blood pressures were 85 systolic. The patient still got up to go to the bathroom and in the bathroom she felt lightheaded and short of breath. Her blood pressures at that time were in the 60s. The patient was assisted back to bed. Her repeat blood pressure remained low in the 70s. Orthopedic surgery was contacted in ordered a 500 mL bolus for the patient. The patient's repeat blood pressure after pulse was 90 . However after bolus the patient developed crackles and marked hypoxia with sats of 75% on room air. She required 6 L nasal cannula to maintain oxygen saturations around 90. Stat ABG, chest x-ray, CBC, troponin, electrolyte panel and EKG were ordered by. At that time I was notified of requested consult. I requested a chest x-ray. When I reviewed the chest x-ray the patient was noted have pulmonary vascular congestion. The EKG demonstrated marked ST depression. I went to evaluate the patient at that time her blood pressures were 85 systolic and she had mild sinus tachycar
--- NOTE | 2021-11-10 04:55 | PC.NURSE ---
called and spoke with pt''s Boyd, updated him on patients condition and the need to transfer her to ICU 1
[2021-11-10] MEDS: HEPARIN SOD/D5W 100 UNITS/ML 25,000 UNITS/250 ML BAG 9 UNITS IV CONT (05:07)
[2021-11-10 05:26] LABS: INR 1.2; Prothrombin Time 14.3 Seconds (11.1-14.7)
[2021-11-10 05:27] LABS: Partial Thromboplastin Time 27.1 SECONDS (22.3-36.8)
[2021-11-10] MEDS: NOREPINEPHRINE 8 MG/D5W 250 ML 8 MG/250 ML BAG 9.38 MG IV CONT (05:34)
--- NOTE | 2021-11-10 05:34 | ECG_ITS ---
Measurements Intervals [place] Rate: 93 P: 60 NM: 152 QRS: 37 QRSD: 135 T: 24 QT: 387 QTc: 483 Interpretive Statements SINUS RHYTHM WITH OCCASIONAL VENTRICULAR PREMATURE COMPLEXES RIGHT BUNDLE BRANCH BLOCK [120+ ms QRS DURATION, UPRIGHT V1, 40+ ms S IN I/aVL/V4/V5/V6] ST DEPRESSION, CONSIDER SUBENDOCARDIAL INJURY [0.1+ mV ST DEPRESSION] COMPARED TO ECG 11/10/2021 02:40:01 SINUS RHYTHM NOW PRESENT AND THE ST DEPRESSION HAS IMPROVED. Electronically Signed On 11-10-2021 13:18:52 CLASSROOM INSTRUCTOR by Brianna Pop M.D.
[2021-11-10] MEDS: FUROSEMIDE INJ 40 MG/4 ML VIAL (05:44)
[2021-11-10] MEDS: CENTRAL LINE FLUSH 10 ML IV PUSH (05:44)
[2021-11-10] MEDS: HEPARIN SODIUM 5,000 UNITS/ML VIAL 4000 UNITS IV PUSH (05:46)
--- NOTE | 2021-11-10 05:50 | P.PCNBED_ITS ---
Procedures Central Line Placement Left Femoral: Central Line Date: 11/10/21 Central Line Time: 05:20 Discussed w/ the patient/family/POA,the placement of a central venous catheter, including its clinical necessity/indication & associated potential risks, benifits and alternatives.: Yes The patient/family/POA understand(s) and acknowledge(s) the need to proceed with central venous catheter insertion as an important element of the patient's clinical management.: Yes Patient Position: trendelenburg Patient placed on monitor/pulse ox: Yes Provider Prep: mask, sterile gloves, Max. sterile barrier precautions, cap and hand hygiene with conventional soap/water or alcohol based hand rub Central line prep: 2% Chlorhexidine scrub Local anesthesia used: lidocaine 1% Amount of anesthesia used (ml): 6 Sterile US Technique with sterile gel/sterile probe covers: Yes Central line lumen inserted: triple Burmese: 7 Length (cm): 16 Depth of Insertion (cm): 15 Post Procedure: sutured in place, good blood return, all ports aspirated, flushed, capped, transparent dressing, securement product and aseptic technique maintained throughout procedure Patient tolerated procedure: well and no complications
[2021-11-10 05:55] LABS: Lactic Acid Reflex 1.2 mmol/L (0.7-2.1)
--- NOTE | 2021-11-10 06:59 | WPDMODSED ---
Moderate Sedation Note-Pt Data Patient Data Allergies Allergy/AdvReac Type Severity Reaction Status Date / Time Penicillins AdvReac Mild RASH Verified 11/08/21 06:04 CHILD Home Medications Medication Instructions Recorded Confirmed Type aspirin 81 mg tablet,delayed 81 mg PO DAILY #90 tablet 09/28/19 11/08/21 Rx release clopidogrel 75 mg tablet 75 mg PO DAILY #90 tablet 12/27/19 11/08/21 Rx sertraline 25 mg tablet 25 mg PO DAILY #90 tablet 05/22/21 11/08/21 Rx metoprolol tartrate 12.5 mg PO BID 07/02/21 11/08/21 History atorvastatin 40 mg PO QPM 10/22/21 11/08/21 History oxycodone-acetaminophen 1 - 2 tablet PO Q4-6H PRN #30 11/09/21 Rx tablet MDD 6 Current Medications: Active Medications Acetaminophen (Acetaminophen 325 Mg Tablet) 650 mg PO Q6H PRN PRN Reason: Mild Pain (1-3) or Fever Aspirin (Aspirin 81 Mg Enteric Tablet) 81 mg PO DAILY [facility] Last Admin: 11/09/21 08:23 Dose: 81 mg Documented by: Atorvastatin Calcium (Atorvastatin 40 Mg Tablet) 40 mg PO QPM [facility] Last Admin: 11/09/21 17:37 Dose: 40 mg Documented by: Clopidogrel Bisulfate (Clopidogrel Bisulfate 75 Mg Tablet) 75 mg PO DAILY [facility] Last Admin: 11/09/21 08:23 Dose: 75 mg Documented by: Cyclobenzaprine HCl (Cyclobenzaprine Hcl 10 Mg Tablet) 10 mg PO Q8H PRN PRN Reason: Muscle Spasm Last Admin: 11/09/21 03:24 Dose: 10 mg Documented by: Famotidine (Famotidine 20 Mg Tablet) 20 mg PO Q12HR [facility] Last Admin: 11/09/21 21:07 Dose: 20 mg Documented by: Furosemide (Furosemide Inj 40 Mg/4 Ml Vial) 40 mg IV PUSH BID [facility] Heparin Sodium (Porcine) (Heparin Sodium 5,000 Units/Ml Vial) 4,000 units IV PUSH PRN PRN PRN Reason: aPTT less than 55 seconds Heparin Sodium (Porcine) (Heparin Sodium 5,000 Units/Ml Vial) 3,000 units IV PUSH PRN PRN PRN Reason: aPTT 55 - 70 seconds Heparin Sodium/Dextrose (Heparin Sodium/D5w 100 Units/Ml) 25,000 units in 250 mls @ 0 mls/hr IV CONT .Q0M [facility]; Protocol Last Titration: 11/10/21 06:33 Dose: 0 units/hr, 0 mls/hr Documented by: Norepinephrine Bitartrate (Levophed 8 Mg/D5w 250 Ml) 8 mg in 250 mls @ 13.125 mls/hr IV CONT .Q19H3M [facility]; Protocol Last Titration: 11/10/21 06:01 Dose: 7 mcg/min, 13.13 mls/hr Documented by: Ceftriaxone Sodium/Dextrose (Rocephin 1 Gm/D5w 50 Ml) 1 gm in 50 mls @ 100 mls/hr IVPB Q24H [facility] Last Infusion: 11/10/21 06:17 Dose: Infused Documented by: Azithromycin (Zithromax) 500 mg in 250 mls @ 250 mls/hr IVPB Q24H [facility] Last Admin: 11/10/21 05:52 Dose: 250 mls/hr Documented by: Naloxone HCl (Naloxone Hcl 0.4 Mg/Ml Vial) 0.1 mg IV PUSH Q2M PRN PRN Reason: Opiate Reversal Ondansetron HCl (Ondansetron Inj 4 Mg/2 Ml Vial) 4 mg IV PUSH Q4H PRN PRN Reason: Nausea And Vomiting Oxycodone HCl (Oxycodone Hcl (*Crx) 5 Mg Tab Ir) 5 mg PO Q4H PRN PRN Reason: Pain Rated 4-6 Last Admin: 11/09/21 21:07 Dose: 5 mg Documented by: Oxycodone HCl (Oxycodone Hcl (*Crx) 5 Mg Tab Ir) 10 mg PO Q4H PRN PRN Reason: Pain Rated 7-10 Polyethylene Glycol (Polyethylene Glycol 3350 17 Gm Powd.Pack) 17 gm PO QAM [facility] Last Admin: 11/09/21 08:22 Dose: 17 gm Documented by: Senna/Docusate Sodium (Senna/Docusate Sodium Tablet) 2 tab PO Q12HR [facility] Last Admin: 11/09/21 21:07 Dose: 2 tab Documented by: Sertraline HCl (Sertraline Hcl 25 Mg Tablet) 25 mg PO DAILY [facility] Last Admin: 11/09/21 08:22 Dose: 25 mg Documented by: Sodium Chloride (Central Line Flush) 10 ml IV PUSH Q8HR [facility] Last Admin: 11/10/21 05:44 Dose: 10 ml Documented by: Sodium Chloride (Central Line Flush) 10 ml IV PUSH DAILY@1800 RASHID Sodium Chloride (Central Line Flush) 20 ml IV PUSH PRN PRN PRN Reason: after blood draws Sedation/Anesthesia: No previous sedation/anesthesia problems (including family history). PMFSH Past Medical History Medical History Anxiety CAD (coronary artery disease) Constipation Health maintenance examination HTN (hypertension) Hyper
--- NOTE | 2021-11-10 07:00 | WPDHPUPDATE1 ---
History and Physical Update Update Date/Time: 11/10/21 07:00 History and Physical has been reviewed, including an updated exam of the patient. There are NO changes in the patient's condition. Risks, benefits, and alternatives have been discussed and questions answered. Patient agrees to proceed with procedure.
--- NOTE | 2021-11-10 07:00 | WPDCARDPROC ---
Cardiac Cath Procedure Note Date of procedure:: 11/10/21 Performing physician:: Tanisha Veloz MD Indication:: Elevated troponins Brief clinical history:: this 65-year-old female past medical history of CABG with GAYLE to LAD, SVG to PDA and residual disease in om was not vascularized. apparently underwent right hip surgery on November 08. overnight she suddenly dropped her blood pressure. EKG showed right bundle branch block, sinus tachycardia and diffuse ST depressions and AVR elevation. Troponins were elevated at 2.9. due to drop in blood pressure she was given 250 bolus saline and after that she was having severe shortness of breath. She underwent CTA thorax and ruled out pulmonary embolism. She received IV diuretics with improvement in respiratory status. Repeat EKG still shows the ischemic changes. Troponins elevated at 4.8 now. She is requiring Levophed 8 mics. at this time given her history I cannot rule out acute coronary syndrome and therefore I discussed the risks and benefits of cardiac catheterization with the patient she agrees to proceed. Risks not limited to , renal failure, bleeding, infection, requiring emergency surgery, stroke, heart attack. Procedure Procedure performed:: 1-Moderate sedation that started at 7:01 a.m.and ended at 7:43 a.m. with total duration 42 minutesusing 1mg of Versed and 25 mcg fentanyl. The registered nurse was margi rivera. 2-Selective left and right coronary angiogram. 3-Left heart catheterization with measurement of LVEDP and measurement of gradient across aortic valve. 3- peripheral angiogram the distal aorta, bilateral common, external iliacs and bilateral common femoral arteries. 4- selective left common femoral arterial angiogram. 5-Deployment of 6 [place] Angio-Seal. Sedation/Medication given:: Moderate sedation. Access site:: Right common femoral artery. Estimated blood loss:: 10cc Procedure note:: After informed consent patient was brought in to wharf labourer with the was draped and prepped in usual manner. Moderate sedation was given and the left groin was infiltrated using 1% lidocaine. Six [place] sheath was obtained using micropuncture needle and the modified Seldinger technique. Selective left coronary angiogram was done using JL4 catheter with the tip of the catheter placed in the left main coronary artery. Selective right coronary angiogram was done using JR4 catheter with the tip of the catheter placed to the right coronary artery. the JR4 catheter was used for selective SVG angiogram to the RCA. Then we used a JR4 catheter to enter the left subclavian artery and then using long exchange wire we took GAYLE catheter and selective GAYLE angiogram was done.After that 5 [place] pigtail catheter was advanced across the aortic valve into the left ventricle with measurement of LVEDP and measurement of gradient across aortic valve. the pigtail catheter was used for peripheral angiogram after that. Selective left common femoral arterial angiogram was done. Findings:: 1- left Main coronary artery is large artery and has severe stenosis involving the proximal and midportion about 90%. 2- left anterior descending artery is Totally occluded at the ostium. It fills via collaterals from the RCA. 3- leftcircumflex artery is a Very large artery And codominant. has minimal irregularities. 4- right coronary artery is large artery. Mid RCA 70%. 5- SVG to RCA is very large graft and patent without stenosis. 6- Gayle to LAD is patent however right after touchdown with the sy[place]uan LAD, the LAD itself is occluded. 7- LVEDP was 25 mm Hg and no gradient across aortic valve. 6- opening arterial pressure was 110/70and closing pressure was 9 6/80 7- selective left femoral artery angiogram shows no significant disease in the left common femoral artery. 8- peripheral angiogram of the distal aorta shows minimal irregularities of the distal aorta no significant disease in the bilateral common, external iliacs and bilateral co
--- NOTE | 2021-11-10 08:11 | PM.CNCAR ---
Assessment and Plan Additional Plan 1- NSTEMI 2- acute CHF exacerbations, nonspecified 3- status post right hip replacement November 08, 2021 4- history of CABG this time due to the medical lab technician findings we will be transferring this patient for high-risk intervention in the left main into the left circumflex artery. - He will need to get assessment of the ejection fraction and the LV function. - Continue aspirin, Plavix. - resume IV heparin 6 hours after cardiac catheterization. - monitor renal function. - Very high complexity consult and total time spent on managing this patient excluding the cath time was 150 minutes History of Present Illness History of Present Illness Consult date/time: 11/10/21 08:11 Requesting physician: Amarilis Luke DO Consult reason: hypotension Reason For Visit: primary oa right hip Narrative: this 65-year-old female with past medical history of CABG x2 at [facility] 2020 with GAYLE to LAD with extensive endarterectomy of the LAD and SVG to RCA, hyperlipidemia who apparently underwent a right hip replacement on November 08, 2021. I was called at 3 30 a.m. because patient suddenly dropped her blood pressure. Apparently EKG shows sinus rhythm with right bundle branch block and diffuse ST depression and AVR elevation. Troponins were 2.9. I spoke to Dr. luke who stated that 250 cc of IV fluids agree with given because of low blood pressure and apparently patient went into respiratory distress requiring high-flow oxygen. She was given IV Lasix and then we agreed that to take the patient for CT scan to rule out pulmonary embolism.. Patient was transferred to the ICU. About an hour later I was called and was informed that the CT scan was negative for pulmonary embolism. We repeated another EKG that shows same findings. Hemoglobin is stable. Patient was not complaining of chest pain. Shortness of breath improved after the Lasix and requiring less oxygen. because of continued ischemic changes on EKG we decided to bring this patient to medical lab technician to define coronary anatomy. Apparently the patient was still getting aspirin and Plavix during her hospital stay. I am not sure at this time how many doses she got. - on arrival to the hospital I met the patient and discussed with her risks and benefits of cardiac catheterization. and she agreed to proceed We brought the patient to the medical lab technician and we found out that SVG is patent to the RCA and the GAYLE is patent to LAD however the [place] LAD is occluded right after the touchdown with the GAYLE and she has high-grade stenosis in the left main into a large left circumflex artery. Review of Systems Constitutional: Constitutional: Denies chills, Reports fatigue, Denies fever(s), Reports malaise and Denies poor appetite Eyes: Eyes: Denies eye discharge, Denies loss of vision, Denies eye pain and Denies photophobia ENT: Denies dizziness, Denies epistaxis, Denies nasal congestion and Denies sore throat Cardiovascular: Cardiovascular: Denies chest pain, Denies syncope, Denies pedal edema, Denies leg edema, Denies palpitations, Denies dyspnea, Denies dyspnea on exertion and Denies orthopnea Respiratory: Respiratory: Denies cough, Reports dyspnea, Reports dyspnea on exertion and Denies wheezing Gastrointestinal: Gastrointestinal: Denies abdominal pain, Denies diarrhea, Denies nausea and Denies vomiting Genitourinary: Genitourinary: Denies hematuria, Denies genital lesions and Denies dysuria Musculoskeletal: Musculoskeletal: Reports arthralgias, Reports joint swelling, Denies numbness and Reports other ( Right hip pain) Integumentary/Breasts: Skin/Breast: Denies pruritus and Denies rash Neurologic: Denies dizziness, Denies syncope, Denies loss of vision and Denies numbness Psychiatric: Psychiatric: Denies anxiety and Denies depression Endocrine: Endocrine: Denies cold intolerance, Denies heat intolerance and Denies palpitations Hematologic/Lymphatic: Hemat
--- NOTE | 2021-11-10 08:39 | WPDCNINT ---
Assessment and Plan Assessment and plan (1) Non-STEMI (non-ST elevated myocardial infarction): Code(s): I21.4 - Non-ST elevation (NSTEMI) myocardial infarction Status: Acute Assessment and Plan: Patient developed NSTEMI, cardiogenic shock, hypotension, hypoxia, pulmonary vascular congestion on chest x-ray, CT scan did not show any PE -patient was taken to the cardiac can labeler on the morning of 11/10/2021 and was found to have 1- Patent SVG to RCA and patent GAYLE to LAD. 2- LAD just after the touchdown with the GAYLE is totally occluded and fills with [id number]-[id number] collaterals. 3- High-grade stenosis involving proximal, mid left main into a very large left circumflex artery. 4- LVEDP 25 mm Hg. -discussed with cardiology, he is going to call [facility] to transfer the patient for higher level of care -continue aspirin, Plavix has been switched to Brilinta -resume IV heparin 6 hours after cardiac catheterization (2) Cardiogenic shock: Code(s): R57.0 - Cardiogenic shock Status: Acute Assessment and Plan: Cardiogenic shock likely related to and significant disease of the left main the left circumflex artery -patient on Levophed, maintain mean arterial pressure > 65 mmHg, for better end organ perfusion -monitor urine output, renal function -cardiology following the patient (3) Acute respiratory failure with hypoxia: Code(s): J96.01 - Acute respiratory failure with hypoxia Status: Acute Assessment and Plan: Respiratory failure related to pulmonary vascular congestion CHF due to NSTEMI -continue supplemental oxygen -if her O2 status worsens will give her a touch of Lasix as her LVEDP was 25 mmHg (4) Status post total hip replacement, right: Code(s): Z96.641 - Presence of right artificial hip joint Status: Acute Assessment and Plan: Status post right hip arthroplasty on 11/08/2021 -orthopedic is following -will be careful with pain control meds (5) CAD (coronary artery disease): Code(s): I25.10 - Atherosclerotic heart disease of [place] coronary artery without angina pectoris Status: Acute Assessment and Plan: Patient has a history CABG x2 with GAYLE to LAD, SVG to PDA and residual disease and OM was not revascularized, 2019 at [facility] Additional Plan Discussed with Dr. Veloz, radar technician, he will be calling [facility] to transfer the patient for high-risk procedure at requiring higher level of care Code status: Full code Critical care time spent: 45 minutes This dictation may have been done utilizing a voice recognition system. Attempts have been made to correct errors. However, there may be uncorrected grammatical, spelling, and recognition errors present. Due to a high probability of clinically significant, life threatening deterioration, the patient required my highest level of preparedness to intervene emergently and I personally spent this critical care time directly and personally managing the patient. This critical care time included obtaining a history; examining the patient; pulse oximetry; ordering and review of studies; arranging urgent treatment with development of a management plan; evaluation of patient's response to treatment; frequent reassessment; and discussions with other providers. It was exclusive of separately billable procedures and treating other patients and teaching time. Please see Assessment and Plan section and the rest of the note for further information on patient assessment and treatment Restaurant Maintenance Technician Consult Note Consult date: 11/10/21 Time Seen: 08:31 Reason for consult: Cardiogenic shock, NSTEMI, acute CHF, status post right hip replacement on 11/08/2021 HPI: Jorge Min is a 65 year old female with past medical history of CABG x2 in [facility] in 2019 with GAYLE to LAD with extensive endarterectomy of the LAD and SVG to RCA, hyperlipidemia, anxiety, coronary artery disease, osteopo
[2021-11-10 09:34] LABS: EDCOVIDSCREEN Negative (Negative)
[2021-11-10] MEDS: PERFLUTREN LIPID MICROSPHERES 1.5 ML VIAL DILUTED TO 10 ML TOTAL VOLUME (10:00)
--- NOTE | 2021-11-10 10:01 | IVDEFINITY ---
Prior to administration of IV Definity the patient was educated on the risks and benefits of the imaging enhancing agent including potential adverse side effects. The patient verbalized understanding. Allergies were verified. No exclusion criteria were identified and at least one of the following inclusion criteria were met: 1) physician request, 2) patient technically difficult to image (per the [place] [employer] Echocardi[employer] guidelines of two or more segments not discernable within the apical view), or 3) questionable left ventricular function. ?
[2021-11-10] MEDS: FAMOTIDINE 20 MG TABLET PO (10:14)
[2021-11-10] MEDS: SERTRALINE HCL 25 MG TABLET PO (10:14)
[2021-11-10] MEDS: TICAGRELOR 90 MG TABLET PO (10:14)
[2021-11-10] MEDS: ONDANSETRON INJ 4 MG/2 ML VIAL IV PUSH (10:15)
[2021-11-10] MEDS: ASPIRIN 81 MG ENTERIC TABLET PO (10:15)
--- NOTE | 2021-11-10 11:34 | PCPTNOTE ---
Spoke with RN regarding Jorge's current status. She had an emergency cardiac catheterization this AM and is waiting for transfer to [facility] for further interventions. She is not currently appropriate for physical therapy services and will be d/c'd from our care at this time .
--- NOTE | 2021-11-10 13:37 | PM.TDS ---
Transfer Discharge Sum: Prov Provider Date of admission: 11/09/21 15:34 Primary care physician: Kelby Lew DO Admitting clinician: aBldev Aguirre MD Consults: 11/10/21 Consult to Physician Routine Comment: Consulting Provider: Tanisha Veloz call taker/MD group to consult: Dr. Conner Reason for consultation: EKG changes, hypotension Has provider been notified: Yes Consult to Physician Routine Comment: Consulting Provider: Amarilis Arreaga Reason for consultation: medical management Has provider been notified: Yes Consult to Physician Routine Comment: Consulting Provider: Paco Rolon call taker/MD group to consult: Dr. Rolon Reason for consultation: hypotension, acute hypoxic resp failure Has provider been notified: Yes DS: Admitting Diagnosis Discharge Date 11/10/2021 Admitting Diagnosis admitted for elective right hip replacement on 11/08/2021 DS: Discharge Diagnosis Discharge Diagnosis (1) Non-STEMI (non-ST elevated myocardial infarction): Code(s): I21.4 - Non-ST elevation (NSTEMI) myocardial infarction Status: Acute Assessment and Plan: postoperative day 1 patient developed cardiogenic shock non ST-elevation [place] hypotension hypoxia and pulmonary vascular congestion. CT PE protocol negative for PE. Status post cardiac catheterization on 11/10/2021 found to have 1- Patent SVG to RCA and patent GAYLE to LAD. 2- LAD just after the touchdown with the GAYLE is totally occluded and fills with yuwqh-lw-cjif collaterals. 3- High-grade stenosis involving proximal, mid left main into a very large left circumflex artery. 4- LVEDP 25 mm Hg. Cardiology suggest transfer to [facility] for higher level of care Aspirin to continue and Plavix switch to Brilinta On IV heparin to continue at the time of transfer (2) Cardiogenic shock: Code(s): R57.0 - Cardiogenic shock Status: Acute Assessment and Plan: Cardiogenic shock likely related to and significant disease of the left main the left circumflex artery Was started on Levophed to maintain mean arterial pressure more than 65 mm Hg. (3) Acute respiratory failure with hypoxia: Code(s): J96.01 - Acute respiratory failure with hypoxia Status: Acute Assessment and Plan: Respiratory failure related to pulmonary vascular congestion CHF due to NSTEMI -continue supplemental oxygen CT chest also suggests airspace opacities possible pneumonia on antibiotics ceftriaxone and azithromycin that was started 11/10/2021 (4) Status post total hip replacement, right: Code(s): Z96.641 - Presence of right artificial hip joint Status: Acute Assessment and Plan: Status post right hip arthroplasty on 11/08/2021 orthopedic continue to follow and was admitted under Orthopedic Services. (5) CAD (coronary artery disease): Code(s): I25.10 - Atherosclerotic heart disease of [place] coronary artery without angina pectoris Status: Acute Assessment and Plan: Patient has a history CABG x2 with GAYLE to LAD, SVG to PDA and residual disease and OM was not revascularized, 2020 at [facility] Transfer Discharge Sum: Med Medications Active and Home Medications: Home Medications aspirin 81 mg tablet,delayed release 81 mg PO DAILY #90 tablet 09/28/19 [Rx Confirmed 11/08/21] clopidogrel 75 mg tablet 75 mg PO DAILY #90 tablet 12/27/19 [Rx Confirmed 11/08/21] sertraline 25 mg tablet 25 mg PO DAILY #90 tablet 05/22/21 [Rx Confirmed 11/08/21] metoprolol tartrate 12.5 mg PO BID 07/02/21 [History Confirmed 11/08/21] atorvastatin 40 mg PO QPM 10/22/21 [History Confirmed 11/08/21] oxycodone-acetaminophen 1 - 2 tablet PO Q4-6H PRN #30 tablet MDD 6 11/09/21 [Rx] Active Medications Acetaminophen (Acetaminophen 325 Mg Tablet) 650 mg PO Q6H PRN PRN Reason: Mild Pain (1-3) or Fever Aspirin (Aspirin 81 Mg Enteric Tablet) 81 mg PO DAILY RASHID Last Admin: 11/10/21 10:15 Dose
--- NOTE | 2021-11-10 17:45 | PM.PNORT ---
Progress Note: A&P Assessment and Plan (1) Status post total hip replacement, right: Code(s): Z96.641 - Presence of right artificial hip joint Status: Acute (2) Cardiogenic shock: Code(s): R57.0 - Cardiogenic shock Status: Acute (3) Non-STEMI (non-ST elevated myocardial infarction): Code(s): I21.4 - Non-ST elevation (NSTEMI) myocardial infarction Status: Acute (4) Acute respiratory failure with hypoxia: Code(s): J96.01 - Acute respiratory failure with hypoxia Status: Acute Assessment and Plan: Non ST elevation [place]. Cardiac cath this morning. Heparin drip started. Patient transferred to [facility] earlier this afternoon for further care. POD 2 s/p right total hip arthroplasty. Partial weight bearing with walker. Post op x-rays intact. Subjective Subjective Date/Time Seen: 11/10/21 17:45 Upon arrival to the ICU, informed by nurse that patient has been transferred. Objective Data Vital Signs Vital Signs: Vital Signs - 24 hr 11/09/21 18:09 11/09/21 19:56 11/09/21 21:07 Temperature 36.7 C 36.7 C Pulse Rate 85 90 90 Respiratory Rate 16 16 Blood Pressure 104/53 L 102/56 L Pulse Oximetry 97 94 11/10/21 00:45 11/10/21 00:48 11/10/21 02:30 Temperature 37.2 C Pulse Rate 100 Respiratory Rate 16 Blood Pressure 86/46 L 70/45 L 93/62 L Pulse Oximetry 96 88 L 11/10/21 03:20 11/10/21 04:01 11/10/21 04:46 Temperature Pulse Rate 92 104 H Respiratory Rate 30 H Blood Pressure 85/58 L 88/61 L Pulse Oximetry 89 L 11/10/21 05:34 11/10/21 06:00 11/10/21 06:01 Temperature Pulse Rate 107 H 102 H 99 Respiratory Rate Blood Pressure 89/57 L 80/57 L Pulse Oximetry 11/10/21 06:15 11/10/21 08:00 11/10/21 08:20 Temperature 36.6 C 36.1 C L Pulse Rate 93 91 Respiratory Rate 24 H 21 H Blood Pressure 103/59 L 99/71 L Pulse Oximetry 92 97 97 11/10/21 08:35 11/10/21 09:05 03/12/22 09:35 Temperature 36.4 C 36.2 C L Pulse Rate 83 87 89 Respiratory Rate 23 H 19 23 H Blood Pressure 97/65 L 102/64 109/65 Pulse Oximetry 97 97 97 11/10/21 10:00 11/10/21 10:25 11/10/21 10:35 Temperature 36.3 C L 36.3 C L Pulse Rate 86 84 82 Respiratory Rate 20 21 H Blood Pressure 80/66 L 80/66 L 100/65 Pulse Oximetry 100 100 11/10/21 11:35 11/10/21 12:00 11/10/21 12:35 Temperature 36.3 C L 36.3 C L Pulse Rate 83 79 81 Respiratory Rate 19 19 20 Blood Pressure 99/63 L 105/70 105/71 Pulse Oximetry 100 100 100 11/10/21 13:35 Temperature 36.3 C L Pulse Rate 94 Respiratory Rate 20 Blood Pressure 101/68 Pulse Oximetry 100 Intake/Output Intake/Output: Intake & Output 11/07/21 11/08/21 11/09/21 11/10/21 23:59 23:59 23:59 23:59 Intake Total 1850 1260 300 Output Total 1400 500 Balance 1850 -140 -200 Meds/Results Radiology Results: ITS Impressions Hip X-Ray 11/08/21 10:45 IMPRESSION: 1. Total right hip arthroplasty in near-anatomic alignment. Chest X-Ray 11/10/21 08:27 IMPRESSION: 1. Diffuse lung disease, likely mild pulmonary edema. Chest CTA 11/10/21 08:31 IMPRESSION: 1. No pulmonary embolus. 2. Diffuse lung disease, likely moderate pulmonary edema. 3. Small pleural effusions. 4. Chronic cluster of centrilobular nodules in right lower lobe, consistent with infection/inflammation. 5. Mild emphysema. Labs Labs: Laboratory Results - last 24 hr 11/10/21 11/10/21 11/10/21 02:44 03:02 03:02 WBC 17.0 H RBC 3.47 L Hgb 10.6 L Hct 35.0 L MCV 100.9 H MCH 30.5 MCHC 30.3 L RDW 13.0 Plt Count 268 MPV 9.2 PT INR APTT Puncture Site Right brachial ABG pH 7.395 ABG pCO2 35.0 ABG pO2 59.6 L ABG PO2/FiO2 Ratio 1.32 ABG HCO3 21.0 L ABG O2 Saturation 91.0 L ABG O2 Content 14.2 L ABG Base Excess -3.3 A-a Gradient 221.4 Oxyhemoglobin 86.4 L* Carboxyhemoglobin 0.1 Methemoglobin 0.4 Reduced Hemoglobin 13.1 H
== END 2021-11-10 13:50 | disposition short-term general hospital (02) ==
LOC: ANHSURGERY 15:36 → ANH2MED 15:36 → ANHICU 11-10 04:27
PROVIDERS: Internal Medicine; Internal Medicine Cardiovascular Disease; Orthopaedic Surgery; Admitting Provider Orthopaedic Surgery; PCP Family Medicine; Visit Provider Orthopaedic Surgery
PROC: (CPT 27130; principal; 2021-11-08 07:30)
PROC: 4A023N7 Measurement of Cardiac Sampling and Pressure, Left Heart, Percutaneous Approach (ICD-10-PCS; CPT 93459; principal; 2021-11-10 06:10)
DX: M16.11 Unilateral primary osteoarthritis, right hip (principal); I21.4 Non-ST elevation (NSTEMI) myocardial infarction; R57.0 Cardiogenic shock; J96.01 Acute respiratory failure with hypoxia; I45.10 Unspecified right bundle-branch block; R00.0 Tachycardia, unspecified; S76.011A Strain of muscle, fascia and tendon of right hip, initial encounter; I11.0 Hypertensive heart disease with heart failure; I50.9 Heart failure, unspecified; X58.XXXA Exposure to other specified factors, initial encounter; I25.10 Atherosclerotic heart disease of native coronary artery without angina pectoris; E78.5 Hyperlipidemia, unspecified; M81.0 Age-related osteoporosis without current pathological fracture; F41.9 Anxiety disorder, unspecified; Z95.1 Presence of aortocoronary bypass graft; Z87.891 Personal history of nicotine dependence; Z79.02 Long term (current) use of antithrombotics/antiplatelets; Z79.82 Long term (current) use of aspirin; Z20.822 Contact with and (suspected) exposure to COVID-19
CPT/HCPCS: 27130; 36556; 36415; 36600; 71045; 71275; 73502; 80053; 82375; 82805; 83050; 83605; 83880; 84484; 85027; 85610; 85730; 86850; 86900; 86901; 87040; 87086; 87426; 93005; 93459; 97110; 97116; 97161; 97165; 97530; 97535; A9270; C1751; C1760; C1769; C1776; C1887; C1894; C8929; C9803; G0269; G0378; J0131; J0171; J0456; J0583; J0690; J0696; J1100; J1644; J1885; J1940; J2250; J2270; J2405; J2704; J2710; J2795; J3010; J7030; J7040; J7120; Q9957; Q9967

== ENCOUNTER 2022-01-03 11:21 | Outpatient (RCR) | payer OTHER, SELFPAY ==
[2022-01-03 13:42] VITALS: BMI 24.0
== END 2022-03-25 08:07 | disposition home or self-care (01) ==
LOC: ANHWOC 11:21
PROVIDERS: PCP Family Medicine
DX: Z43.3 Encounter for attention to colostomy (principal)
CPT/HCPCS: 99213; G0463

== ENCOUNTER 2022-11-20 08:40 | Outpatient (CLI) | payer OTHER, SELFPAY ==
--- NOTE | ~2022-11-20 | MM_ITS ---
EXAMINATION: MM screening ras BI w michel HISTORY: Screening TECHNIQUE: Craniocaudal and mediolateral oblique 3-D tomosynthesis images were obtained and synthetic 2-D images were generated. CAD analysis was submitted and interpreted. COMPARISON: Comparison to multiple prior studies sequentially, with oldest reviewed study dated 10/27. BREAST PARENCHYMAL COMPOSITION: The breasts are heterogeneously dense, which may obscure small masses . FINDINGS: There is no evidence of suspicious mass, calcification, or architectural distortion to sugg est malignancy in either breast. There has been no suspicious interval change. IMPRESSION: 1. No mammographic evidence of malignancy. 2. Recommend routine screening mammography in one year. BI-RADS Category 1: Negative Reviewed, dictated and finalized at location A.
[2022-11-20 09:01] LABS: Hematocrit 40.6 % (35.0-49.0); Hemoglobin 13.6 g/dL (12.0-15.0); Mean Corpuscular HGB Conc 33.5 g/dL (32.0-36.0); Mean Corpuscular Hemoglobin 31.6 pg (27.0-31.0); Mean Corpuscular Volume 94.2 fL (78.0-102.0); Mean Platelet Volume 8.5 fl (9.2-11.8); Platelet Count Result 263 K/mm3 (150-420); Red Blood Count 4.31 M/mm3 (4.20-5.40); Red Cell Distribution Width 12.2 % (11.6-14.4); White Blood Count 7.3 K/mm3 (4.8-10.8)
[2022-11-20 09:42] LABS: Alanine Aminotransferase 30 U/L (14-59); Albumin Level 3.9 g/dL (3.4-5.0); Alkaline Phosphatase 114 U/L (46-116); Anion Gap 10 mmol/L (8-16); Aspartate Amino Transferase 24 U/L (15-37); Bilirubin,Total 0.4 mg/dL (0.00-1.00); Blood Urea Nitrogen 15 mg/dL (7-18); Carbon Dioxide 29 mmol/L (21-32); Chloride 106 mmol/L (98-108); Estimated Glomerular Filt Rate > 60; Glucose 168 mg/dL (70-99); Osmolality Calculated 304 mOsm/kg (285-295); Potassium 4.5 mmol/L (3.5-5.1); Sodium 145 mmol/L (136-145); Thyroid Stimulating Hormone 0.51 uIU/mL (0.36-3.74); Total Protein 7.6 g/dL (6.4-8.2)
[2022-11-20 10:02] LABS: CRP < 0.5 mg/dL (0.0-0.9)
[2022-11-22 17:49] LABS: NIL 0.02 IU/mL; Quantiferon TB Plus, 1T NEGATIVE (NEGATIVE)
[2022-11-23 04:44] LABS: FSH 52.4 mIU/mL (***); LH 22.8 mIU/mL (***)
[2022-11-25 12:49] LABS: Metanephrine, Free 30 pg/mL (<=57); Normetanephrine, Free 193 pg/mL (<=148); Total, Free (MN + NMN) 223 pg/mL (<=205)
[2022-11-27 17:53] LABS: Estrogen 130.4 pg/mL
== END 2022-11-20 08:41 | disposition home or self-care (01) ==
LOC: CHSIMG 08:42
PROVIDERS: PCP Family Medicine; Visit Provider Family Medicine
DX: Z12.31 Encounter for screening mammogram for malignant neoplasm of breast (principal); I10 Essential (primary) hypertension; R23.2 Flushing
CPT/HCPCS: 36415; 77063; 77067; 80053; 82672; 83001; 83002; 83835; 84443; 85027; 86140; 86480

== ENCOUNTER 2022-12-20 08:37 | Outpatient (CLI) | payer MEDICARE, OTHER, SELFPAY ==
--- NOTE | ~2022-12-20 | CT_ITS ---
CT of the Abdomen and Pelvis: Indication: Elevated metanephrines, suspected pheochromocytoma Technique: 2.5 mm axial scans were obtained through the abdomen and pelvis following intravenous adm inistration of 100 cc of Omnipaque 350. Dose reduction technique was used on this scan by utilizing a utomated exposure control and iterative reconstruction technique. The dose-length product (DLP) was 8 69.45 mGy-cm. Findings: Scans through the lung bases demonstrate calcified lower mediastinal lymph nodes. The liver, pancreas, gallbladder, adrenals and kidneys are within normal limits. Multiple calcified s plenic granulomas are present. There are atherosclerotic calcifications of the aorta. No lymphadenop athy. Patient is status post distal partial colectomy with left lower quadrant ostomy present. There is a [place] umbilical hernia containing portion of the transverse colon as well as small bowel loops and mesenteric fat. No bowel obstruction or bowel wall thickening evident. Images through the pelvis under fragoso by streak artifact from bilateral hip arthroplasty. Urinary blad viktoriya grossly unremarkable. No pelvic mass evident. No ascites seen. Bilateral L5 pars interarticularis defects are present, with 9 mm anterolisthesis of L5 over S1. Impression: No suspicious mass lesion seen. If there is persistent clinical concern for pheochromocytoma, conside r nuclear medicine/PET imaging for further workup. Wide necked umbilical hernia containing portion of the transverse colon as well as small bowel loops and mesenteric fat. No bowel obstruction or bowel thickening. Other chronic findings, as above. Reviewed, dictated and finalized at [facility]. Impression: No suspicious mass lesion seen. If there is persistent clinical concern for phe ochromocytoma, consider nuclear medicine/PET imaging for further workup. Wide necked umbilical hernia containing portion of the transverse colon as well as small bowel loops and mesenteric fat. No bowel obstruction or bowel thicken ing. Other chronic findings, as above.
[2022-12-20 09:09] LABS: Estimated Glomerular Filt Rate > 60
== END 2022-12-20 08:38 | disposition home or self-care (01) ==
LOC: CHSIMG 08:45
PROVIDERS: PCP Family Medicine; Visit Provider Family Medicine
DX: R63.4 Abnormal weight loss (principal); R23.2 Flushing; R79.89 Other specified abnormal findings of blood chemistry; K42.9 Umbilical hernia without obstruction or gangrene
CPT/HCPCS: 74177; Q9967

== ENCOUNTER 2023-01-07 08:31 | Outpatient (CLI) | payer MEDICARE, OTHER, SELFPAY ==
--- NOTE | 2023-01-07 08:46 | ECG_ITS ---
Measurements Intervals [place] Rate: 75 P: 73 WA: 152 QRS: 71 QRSD: 134 T: 50 QT: 386 QTc: 433 Interpretive Statements SINUS RHYTHM RIGHT BUNDLE BRANCH BLOCK ABNORMAL ECG COMPARED TO ECG 11/10/2021 05:41:45 NO SIGNIFICANT CHANGES Electronically Signed On 01-07-2023 9:52:19 CDT by Curtis Fuentes D.O.
[2023-01-07 09:12] LABS: Alanine Aminotransferase 29 U/L (14-59); Albumin Level 3.6 g/dL (3.4-5.0); Alkaline Phosphatase 97 U/L (46-116); Anion Gap 9 mmol/L (8-16); Aspartate Amino Transferase 23 U/L (15-37); Bilirubin,Total 0.6 mg/dL (0.00-1.00); Blood Urea Nitrogen 12 mg/dL (7-18); Calcium 8.7 mg/dL (8.5-10.1); Carbon Dioxide 26 mmol/L (21-32); Chloride 105 mmol/L (98-108); Cholesterol 132 mg/dL (0-200); Estimated Glomerular Filt Rate > 60; Glucose 109 mg/dL (70-99); HDL Direct 54 mg/dL (40-60); LDL Cholesterol Calculated 58 mg/dL (<130); Osmolality Calculated 290 mOsm/kg (285-295); Potassium 4.5 mmol/L (3.5-5.1); Sodium 140 mmol/L (136-145); Triglycerides 101 mg/dL (0-150)
== END 2023-01-07 08:32 | disposition home or self-care (01) ==
LOC: CHSLAB 08:33
PROVIDERS: PCP Family Medicine; Visit Provider Internal Medicine Cardiovascular Disease
DX: I25.810 Atherosclerosis of coronary artery bypass graft(s) without angina pectoris (principal); E78.5 Hyperlipidemia, unspecified; R94.31 Abnormal electrocardiogram [ECG] [EKG]; I45.10 Unspecified right bundle-branch block
CPT/HCPCS: 36415; 80053; 80061; 93005

== ENCOUNTER 2023-01-17 12:49 | Outpatient (CLI) | payer MEDICARE, OTHER, SELFPAY ==
--- NOTE | 2023-01-17 12:55 | ECHO_ITS ---
Patient Info Name: Jorge Min Age: 67 years : 1955 Gender: Female Ht: 68 in Wt: 170 lbs BSA: 1.94 m2 HR: 79 bpm BP: 151 / 80 mmHg Technical Quality: Fair Exam Date: 01/17/2023 1:18 PM Exam Location: [facility] Patient Status: Outpatient Admit Date: 01/17/2023 Staff Ordering Physician: Curtis Fuentes DO Gas Blender: Faith Blount RDCS Attending Provider: Curtis Fuentes DO Referring Physician: Alfredo BAKER; Exam Type: CA echo doppler color flow Study Info Indications I51.9 - Heart disease, unspecified Complete two-dimensional, color flow and Doppler transthoracic echocardiogram is performed. Summary 1. Complete two-dimensional, color flow and Doppler transthoracic echocardiogram is performed. 2. Left ventricular chamber dimension is normal. 3. Left ventricular systolic function is normal, estimated at 55-60%. 4. There is mild concentric increased left ventricular wall thickness. 5. The left ventricular diastolic function is grade I diastolic dysfunction. 6. E/e' 7 is not elevated. 7. There is trace pulmonic regurgitation. Left Ventricle E/e' 7 is not elevated. Left ventricular chamber dimension is normal. Left ventricular systolic function is normal, estimated at 55-60%. There is mild concentric increased left ventricular wall thickness. The left ventricular diastolic function is grade I diastolic dysfunction. Right Ventricle Right ventricular chamber dimension is normal. Right ventricular systolic function is normal. Left Atria Left atrial chamber dimension is normal. Right Atria Right atrial chamber dimension is normal. Aortic Valve The aortic valve is trileaflet. There is no aortic valve stenosis. There is no aortic valve regurgitation. Pulmonic Valve There is trace pulmonic regurgitation. Mitral Valve There is no mitral valve stenosis. There is no mitral valve regurgitation. Tricuspid Valve There is no tricuspid valve regurgitation. Pericardium/Pleural There is no pericardial effusion. Inferior Vena Cava Normal inferior vena cava with >50% collapse upon inspiration consistent with normal right atrial pressure, 5 mmHg. Aorta The aortic root size at the sinus of Valsalva is normal. Left Ventricular Outflow Tract Name Value Normal LVOT 2D LVOT Diameter 2.0 cm LVOT Doppler LVOT Peak Velocity 82 cm/s LVOT Peak Gradient 3 mmHg LVOT Mean Gradient 1 mmHg LVOT VTI 14 cm LVOT VTI/AV VTI Ratio 0.6 LVOT Stroke Volume 45 ml Pulmonic Valve Name Value Normal RVOT Doppler RVOT Peak Gradient 3 mmHg PV Doppler PV Peak Velocity 105 cm/s PV Peak Gradient 4 mmHg Mitral Valve
== END 2023-01-17 12:50 | disposition home or self-care (01) ==
LOC: CHSIMG 12:50
PROVIDERS: PCP Family Medicine; Visit Provider Internal Medicine Cardiovascular Disease
DX: I51.9 Heart disease, unspecified (principal)
CPT/HCPCS: 93306

== ENCOUNTER 2023-02-27 01:20 | Day surgery (SDC) | payer MEDICARE, OTHER, SELFPAY ==
[2023-02-13 10:27] VITALS: BMI 26.1
[2023-02-27 06:25] VITALS: BP 148/81; PULSE 96; RESP 18; TEMP 36.6; O2SAT 98
[2023-02-27] MEDS: LACTATED RINGERS 1,000 ML 150 ML IV CONT (06:44)
--- NOTE | 2023-02-27 07:58 | PM.IMHP ---
H&P: HPI History of Present Illness Date/Time: 02/27/23 07:58 Chief Complaint: Colonoscopy screening Narrative: This is a 67-year-old woman who presents for colonoscopy. She has a prior history of diverticulitis with perforation about 1 year ago and underwent Lori's procedure. She also has an incisional hernia that she is interested in having repaired. Discussed possible takedown of ostomy but colonoscopy will need to be performed 1st. She denies any hematochezia or melena. Review of Systems Review of Systems: All systems reviewed & are unremarkable except as noted in HPI and below Constitutional: Constitutional: Denies chills, Denies fever(s), Denies headache(s) and Denies weight loss Eyes: Eyes: Denies change in vision ENT: Denies dizziness, Denies headache(s), Denies neck mass and Denies throat swelling Cardiovascular: Cardiovascular: Denies chest pain, Denies lightheadedness and Denies dyspnea Respiratory: Respiratory: Denies cough, Denies dyspnea and Denies wheezing Gastrointestinal: Gastrointestinal: Denies abdominal pain, Denies change in bowel habits, Denies nausea and Denies vomiting Genitourinary: Genitourinary: Denies hematuria and Denies dysuria Musculoskeletal: Musculoskeletal: Reports as per HPI Integumentary/Breasts: Skin/Breast: Reports as per HPI Neurologic: Denies dizziness and Denies headache(s) Allergic/Immunologic: Allergic/Immunologic: Denies throat swelling and Denies wheezing PMFSH Past Medical History Medical History Anxiety CAD (coronary artery disease) Constipation Health maintenance examination Hot flashes HTN (hypertension) Hyperlipidemia Insomnia Osteoporosis Surgical History Surgical History History of cardiac catheterization (05/2018) Demonstrated 3 vessel coronary disease with high-grade stenosis right coronary artery, near total occlusion of mid LAD and 80% stenosis of obtuse marginal branch of circumflex performed at [place] off Presence of left artificial hip joint Status post double vessel coronary artery bypass (05/28/18) Performed at [facility]: Internal mammary graft to LAD and saphenous vein graft to RPDA as well as extensive LAD endarterectomy complicated by perioperative atrial fibrillation Status post total hip replacement, right (~11/08/21) Family History Family History Mother Family history of arthritis Family history of diabetes mellitus in first degree relative Father Carcinoma of colon Grandparent Family history of malignant neoplasm of breast Mother Family history of type 2 diabetes mellitus Social History Social History Social History: Code status: Full code Surrogate decision maker: Smoking packs per day: 1 Smoking cigarettes per day: 20.0 Years smoked: 42 Smoking pack-years: 42.00 Smoking status: Former smoker Tobacco type: cigarettes Smoking end date: 05/24/18 Additional smoking assessment comments: Quit 05-24-2018. 42 pack-year history Alcohol intake: current Drinks per week: 12 Substance use type: does not use Lack of Transportation: No Lack of Food: Never True Current Housing: I Have Housing Concerned About Future Housing: No Difficulty Paying Gas/Electric Bills: No Difficulty Paying for Meds: No Currently Unemployed: No Education: Trade/Vocational Certificate Difficulty w/ Childcare or Family Care: No Living arrangements: with family Additional living arrangements comments: . 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
--- NOTE | 2023-02-27 08:01 | WPDANESEPPF ---
Anes - Initial Pre Proc Eval Procedure: Operation Date: 02/27/23 08:00 Proposed Procedures p Colonoscopy Through Ostomy - Devan Disla DO Date/Time: 02/27/23 08:01 Surgeon: Devan Disla DO Pre Op Diagnosis: colostomy status Patient Data Age: 67 Gender: F Height: 1.73 m Weight: 75.3 kg Last Vital Signs Temp 97.8 F 02/27/23 06:25 Pulse 96 02/27/23 06:25 Resp 18 02/27/23 06:25 BP 148/81 H 02/27/23 06:25 Pulse Ox 98 02/27/23 06:25 O2 Del Method Room Air 02/27/23 06:25 Allergies Allergy/AdvReac Type Severity Reaction Status Date / Time Penicillins AdvReac Mild RASH Verified 02/27/23 06:19 CHILD Home Medications Medication Instructions Recorded Confirmed Type aspirin 81 mg tablet,delayed 81 mg PO DAILY #90 tabs 09/28/19 02/13/23 Rx release (Adult Low Dose Aspirin) atorvastatin 40 mg tablet 40 mg PO QPM #90 tabs 01/06/23 02/13/23 Rx spironolactone 25 mg tablet 25 mg PO DAILY #90 tabs 01/09/23 02/13/23 Rx metoprolol succinate 25 mg 25 mg PO DAILY #90 tabs 01/17/23 02/13/23 Rx tablet,extended release 24 hr sertraline 50 mg tablet 50 mg PO DAILY #90 tabs 01/17/23 02/13/23 Rx clopidogrel 75 mg tablet 75 mg PO DAILY 02/27/23 02/27/23 History Patient hx anesthesia problems: none Family hx anesthesia problems: none Results Review: All pre-operative results and documents have been reviewed as part of the pre-operative evaluation. [facility] Past Medical History Medical History Anxiety CAD (coronary artery disease) Constipation Health maintenance examination Hot flashes HTN (hypertension) Hyperlipidemia Insomnia Osteoporosis Surgical History Surgical History History of cardiac catheterization (05/2018) Demonstrated 3 vessel coronary disease with high-grade stenosis right coronary artery, near total occlusion of mid LAD and 80% stenosis of obtuse marginal branch of circumflex performed at [place] off Presence of left artificial hip joint Status post double vessel coronary artery bypass (05/28/18) Performed at [facility]: Internal mammary graft to LAD and saphenous vein graft to RPDA as well as extensive LAD endarterectomy complicated by perioperative atrial fibrillation Status post total hip replacement, right (~11/08/21) Family History Family History Mother Family history of arthritis Family history of diabetes mellitus in first degree relative Father Carcinoma of colon Grandparent Family history of malignant neoplasm of breast Mother Family history of type 2 diabetes mellitus Social History Social History Social History: Code status: Full code Surrogate decision maker: Smoking packs per day: 1 Smoking cigarettes per day: 20.0 Years smoked: 42 Smoking pack-years: 42.00 Smoking status: Former smoker Tobacco type: cigarettes Smoking end date: 05/24/18 Additional smoking assessment comments: Quit 05-24-2018. 42 pack-year history Alcohol intake: current Drinks per week: 12 Substance use type: does not use Lack of Transportation: No Lack of Food: Never True Current Housing: I Have Housing Concerned About Future Housing: No Difficulty Paying Gas/Electric Bills: No Difficulty Paying for Meds: No Currently Unemployed: No Education: Trade/Vocational Certificate Difficulty w/ Childcare or Family Care: No Living arrangements: with family Additional living arrangements comments: . 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
--- NOTE | 2023-02-27 08:15 | WPDANESEPPF ---
Anes - Initial Pre Proc Eval Procedure: Operation Date: 02/27/23 08:00 Proposed Procedures p Colonoscopy Through Ostomy - Devan Disla DO Date/Time: 02/27/23 08:15 Surgeon: Devan Disla DO Pre Op Diagnosis: colostomy status Patient Data Age: 67 Gender: F Height: 1.73 m Weight: 75.3 kg Last Vital Signs Temp 97.8 F 02/27/23 06:25 Pulse 96 02/27/23 06:25 Resp 18 02/27/23 06:25 BP 148/81 H 02/27/23 06:25 Pulse Ox 98 02/27/23 06:25 O2 Del Method Room Air 02/27/23 06:25 Allergies Allergy/AdvReac Type Severity Reaction Status Date / Time Penicillins AdvReac Mild RASH Verified 02/27/23 06:19 CHILD Home Medications Medication Instructions Recorded Confirmed Type aspirin 81 mg tablet,delayed 81 mg PO DAILY #90 tabs 09/28/19 02/13/23 Rx release (Adult Low Dose Aspirin) atorvastatin 40 mg tablet 40 mg PO QPM #90 tabs 01/06/23 02/13/23 Rx spironolactone 25 mg tablet 25 mg PO DAILY #90 tabs 01/09/23 02/13/23 Rx metoprolol succinate 25 mg 25 mg PO DAILY #90 tabs 01/17/23 02/13/23 Rx tablet,extended release 24 hr sertraline 50 mg tablet 50 mg PO DAILY #90 tabs 01/17/23 02/13/23 Rx clopidogrel 75 mg tablet 75 mg PO DAILY 02/27/23 02/27/23 History Patient hx anesthesia problems: none Family hx anesthesia problems: none Results Review: All pre-operative results and documents have been reviewed as part of the pre-operative evaluation. [facility] Past Medical History Medical History Anxiety CAD (coronary artery disease) Constipation Health maintenance examination Hot flashes HTN (hypertension) Hyperlipidemia Insomnia Osteoporosis Surgical History Surgical History History of cardiac catheterization (05/2018) Demonstrated 3 vessel coronary disease with high-grade stenosis right coronary artery, near total occlusion of mid LAD and 80% stenosis of obtuse marginal branch of circumflex performed at [place] off Presence of left artificial hip joint Status post double vessel coronary artery bypass (05/28/18) Performed at [facility]: Internal mammary graft to LAD and saphenous vein graft to RPDA as well as extensive LAD endarterectomy complicated by perioperative atrial fibrillation Status post total hip replacement, right (~11/08/21) Family History Family History Mother Family history of arthritis Family history of diabetes mellitus in first degree relative Father Carcinoma of colon Grandparent Family history of malignant neoplasm of breast Mother Family history of type 2 diabetes mellitus Social History Social History Social History: Code status: Full code Surrogate decision maker: Smoking packs per day: 1 Smoking cigarettes per day: 20.0 Years smoked: 42 Smoking pack-years: 42.00 Smoking status: Former smoker Tobacco type: cigarettes Smoking end date: 05/24/18 Additional smoking assessment comments: Quit 05-24-2018. 42 pack-year history Alcohol intake: current Drinks per week: 12 Substance use type: does not use Lack of Transportation: No Lack of Food: Never True Current Housing: I Have Housing Concerned About Future Housing: No Difficulty Paying Gas/Electric Bills: No Difficulty Paying for Meds: No Currently Unemployed: No Education: Trade/Vocational Certificate Difficulty w/ Childcare or Family Care: No Living arrangements: with family Additional living arrangements comments: . 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
[2023-02-27 08:40] VITALS: BP 116/59; PULSE 76; RESP 17; O2SAT 98
[2023-02-27 08:50] VITALS: BP 117/70; PULSE 73; RESP 24; O2SAT 100
[2023-02-27 09:00] VITALS: BP 136/65; PULSE 71; RESP 23; O2SAT 99
== END 2023-02-27 09:12 | disposition home or self-care (01) ==
PROVIDERS: PCP Family Medicine; Visit Provider Surgery
PROC: 0DJD8ZZ Inspection of Lower Intestinal Tract, Via Natural or Artificial Opening Endoscopic (ICD-10-PCS; CPT 45378; principal; 2023-02-27 08:00)
DX: Z12.11 Encounter for screening for malignant neoplasm of colon (principal); D12.0 Benign neoplasm of cecum; Z93.3 Colostomy status; K43.2 Incisional hernia without obstruction or gangrene; Z87.19 Personal history of other diseases of the digestive system; I25.10 Atherosclerotic heart disease of native coronary artery without angina pectoris; I10 Essential (primary) hypertension; E78.5 Hyperlipidemia, unspecified; M81.0 Age-related osteoporosis without current pathological fracture; F41.9 Anxiety disorder, unspecified; Z79.82 Long term (current) use of aspirin; Z79.02 Long term (current) use of antithrombotics/antiplatelets; Z87.891 Personal history of nicotine dependence; Z95.1 Presence of aortocoronary bypass graft
CPT/HCPCS: 44394; 44404; 88305; J2704; J7120

== ENCOUNTER 2023-05-26 12:34 | Outpatient (CLI) | payer MEDICARE, OTHER, SELFPAY ==
--- NOTE | ~2023-05-26 | US_ITS ---
EXAMINATION: US arterial ankle brachial ind DATE: 05/26/2023 13:36 INDICATION: Peripheral vascular disease TECHNIQUE: Segmental pressures and plethysmographic and Doppler waveforms of the brachial and lower e xtremity arteries were obtained. COMPARISON: None. FINDINGS: Right and left brachial artery pressures of 134 mm Hg and 137 mm Hg, respectively, are concordant (no rmal difference <= 30 mmHg). The right ankle-brachial index (KATE) is 0.64 (normal >= 0.9-1.0). The right great toe-brachial index (TBI) is 0.42 (normal >= 0.65). Arterial Doppler waveforms demonstrate normal systolic upstrokes at b oth right posterior tibial and dorsalis pedis arteries. The left KATE is 0.67. The left TBI is 0.49. Arterial Doppler waveforms demonstrate normal systolic up strokes at both left posterior tibial and dorsalis pedis arteries. IMPRESSION: 1. Arterial occlusive disease to the bilateral lower limbs with moderately decreased bilateral ABIs. Reviewed, dictated and finalized at location A. IMPRESSION: 1. Arterial occlusive disease to the bilateral lower limbs with moderately decr eased bilateral ABIs.
--- NOTE | ~2023-05-26 | US_ITS ---
EXAMINATION: US arterial duplex [facility] DATE: 05/26/2023 13:37 INDICATION: Peripheral vascular disease with claudication TECHNIQUE: Multiple grayscale and Doppler ultrasound images of the arteries of the bilateral lower li mbs were obtained. COMPARISON: None FINDINGS: Right lower limb: Triphasic waveforms with brisk systolic upstrokes at the right common femoral, profunda femoral and i n the proximal femoral artery which subsequently occludes. The artery measures approximately 3.6 mm d iameter at the site of the conclusion with no discernible flow in the mid femoral artery. There is re constitution of flow in the distal right femoral artery with monophasic waveform with systolic upstro kes still within normal limits in the more distal right femoral, popliteal, posterior tibial, peronea l and anterior tibial arteries. Left lower limb: Biphasic waveforms with brisk systolic upstrokes in the left common femoral and profunda femoral bipin diogenes. Shadowing atherosclerotic plaque is seen at the origin of the left femoral artery which measure s approximately 2.3 mm diameter with monophasic waveform in the proximal femoral artery. There is occ lusion with no discernible flow in the mid femoral artery. There is reconstitution of flow in the dis jesus left femoral artery where there are biphasic waveforms. Monophasic waveforms with borderline syst olic upstrokes in the popliteal, posterior tibial, peroneal and anterior tibial arteries. IMPRESSION: 1. Segmental occlusions in the bilateral mid femoral arteries, both with more collateral reconstituti on of flow in the distal femoral arteries. Reviewed, dictated and finalized at location A. IMPRESSION: 1. Segmental occlusions in the bilateral mid femoral arteries, both with more c ollateral reconstitution of flow in the distal femoral arteries.
== END 2023-05-26 12:35 | disposition home or self-care (01) ==
LOC: CHSIMG 12:35
PROVIDERS: PCP Family Medicine; Visit Provider Internal Medicine Cardiovascular Disease
DX: I73.9 Peripheral vascular disease, unspecified (principal); I77.1 Stricture of artery
CPT/HCPCS: 93922; 93925

== ENCOUNTER 2023-11-13 10:42 | Outpatient (CLI) | payer MEDICARE, OTHER, SELFPAY ==
[2023-11-13 11:01] LABS: Basophils Absolute Auto 0.07 K/mm3 (0.00-0.10); Basophils Percent Auto 0.7 % (0.0-1.0); Eosinophils Percent Auto 2.1 % (1.0-6.0); Hematocrit 39.1 % (35.0-42.0); Hemoglobin 13.6 g/dL (11.7-13.8); Immature Granulocyte Absolute 0.08 K/mm3 (0.00-0.00); Immature Granulocyte Percent A 0.8 % (0.0-0.0); Lymphocytes Absolute Auto 1.71 K/mm3 (1.10-4.50); Mean Corpuscular HGB Conc 34.8 g/dL (32-36); Mean Corpuscular Hemoglobin 32.2 pg (27.0-31.0); Mean Corpuscular Volume 92.7 fL (78.0-102.0); Mean Platelet Volume 8.8 fl (9.2-11.8); Monocytes Absolute Auto 0.63 K/mm3 (0.10-0.90); Monocytes Percent Auto 6.6 % (2.0-11.0); Neutrophils Absolute Auto 6.82 K/mm3 (1.70-7.20); Neutrophils Percent Auto 71.8 % (50.0-70.0); Platelet Count Result 267 K/mm3 (150-420); Red Blood Count 4.22 M/mm3 (4.20-5.40); Red Cell Distribution Width 12.1 % (11.6-14.4); White Blood Count 9.5 K/mm3 (4.8-10.8)
[2023-11-13 12:24] LABS: Alanine Aminotransferase 34 U/L (14-59); Albumin Level 3.6 g/dL (3.4-5.0); Alkaline Phosphatase 98 U/L (46-116); Anion Gap 10 mmol/L (8-16); Aspartate Amino Transferase 20 U/L (15-37); Bilirubin,Total 0.6 mg/dL (0.00-1.00); Blood Urea Nitrogen 16 mg/dL (7-18); Calcium 8.9 mg/dL (8.5-10.1); Carbon Dioxide 26 mmol/L (21-32); Chloride 106 mmol/L (98-108); Cholesterol 150 mg/dL (0-200); Estimated Glomerular Filt Rate > 60; Glucose 155 mg/dL (70-99); HDL Direct 58 mg/dL (40-60); LDL Cholesterol Calculated 52 mg/dL (<130); Osmolality Calculated 298 mOsm/kg (285-295); Sodium 142 mmol/L (136-145); Triglycerides 199 mg/dL (0-150)
[2023-11-13 14:25] LABS: Thyroid Stimulating Hormone Reflex 0.54 u/IU/mL (0.36-3.74)
[2023-11-17 07:19] LABS: Vitamin D 1,25 (OH)2 Total 71 pg/mL (18-72); Vitamin D2 1,25 (OH)2 <8 pg/mL; Vitamin D3 1,25 (OH)2 71 pg/mL
== END 2023-11-13 10:43 | disposition home or self-care (01) ==
PROVIDERS: PCP Family Medicine; Visit Provider Family Medicine
DX: I10 Essential (primary) hypertension (principal); E03.9 Hypothyroidism, unspecified; M81.0 Age-related osteoporosis without current pathological fracture; E55.9 Vitamin D deficiency, unspecified
CPT/HCPCS: 36415; 80053; 80061; 82652; 84443; 85025

== ENCOUNTER 2023-11-24 11:53 | Outpatient (CLI) | payer MEDICARE, OTHER, SELFPAY ==
--- NOTE | ~2023-11-24 | MM_ITS ---
EXAMINATION: MM screening ras BI w michel HISTORY: Screening mammogram TECHNIQUE: Craniocaudal and mediolateral oblique 3-D tomosynthesis images were obtained and synthetic 2-D images were generated. CAD analysis was submitted and interpreted. COMPARISON: 11/20/2022, 02/28/2021, 10/21/2019, 10/27/2018 mammogram examinations BREAST PARENCHYMAL COMPOSITION: The breasts are heterogeneously dense, which may obscure small masses . FINDINGS: Multiple scattered bilateral benign calcifications. There is no evidence of suspicious mass , calcification, or architectural distortion to suggest malignancy in either breast. There has been n o suspicious interval change. IMPRESSION: 1. No mammographic evidence of malignancy. 2. Recommend routine screening mammography in one year. BI-RADS Category 2: Benign finding(s). Reviewed, dictated and finalized at location A.
== END 2023-11-24 11:54 | disposition home or self-care (01) ==
LOC: CHSIMG 11:54
PROVIDERS: PCP Family Medicine; Visit Provider Family Medicine
DX: Z12.31 Encounter for screening mammogram for malignant neoplasm of breast (principal)
CPT/HCPCS: 77063; 77067

== ENCOUNTER 2024-04-27 13:16 | Outpatient (CLI) | payer MEDICARE, SELFPAY ==
--- NOTE | ~2024-04-27 | XR_ITS ---
EXAMINATION: XR foot LT min 3V DATE: 04/27/2024 13:45 INDICATION: Lateral left foot pain. TECHNIQUE: 4 views of left foot were obtained. COMPARISON: None. FINDINGS: There is mild hallux valgus. No fracture. There is mild osteoarthritis of first metatarsoph alangeal joint and some of the interphalangeal joints and talonavicular joint. There is an enthesophy te of posterior aspect of calcaneal tuberosity. There is soft tissue swelling of the foot. IMPRESSION: 1. Mild hallux valgus. 2. Mild polyarticular osteoarthritis. Reviewed, dictated and finalized at location A.
== END 2024-04-27 13:17 | disposition home or self-care (01) ==
PROVIDERS: PCP Family Medicine; Visit Provider Family Medicine
DX: M79.672 Pain in left foot (principal); M20.12 Hallux valgus (acquired), left foot; M19.072 Primary osteoarthritis, left ankle and foot
CPT/HCPCS: 73630

== ENCOUNTER 2024-05-10 13:37 | Outpatient (CLI) | payer MEDICARE, OTHER, SELFPAY ==
--- NOTE | 2024-05-10 13:50 | ECG_ITS ---
Test Date: 2024-05-10 13:59:09 Measurements Intervals [place] Rate: 131 P: 0 [place]: 0 QRS: 71 QRSD: 123 T: 54 QT: 298 QTc: 440 Interpretive Statements ATRIAL FIBRILLATION WITH RAPID VENTRICULAR RESPONSE WITH ABERRANT CONDUCTION OR VENTRICULAR PREMATURE COMPLEXES RIGHT BUNDLE BRANCH BLOCK BASELINE ARTIFACT- III ABNORMAL ECG No previous ECG available for comparison Electronically Signed On 05-10-2024 14:18:43 CDT by Curtis Fuentes D.O.
== END 2024-05-10 13:38 | disposition home or self-care (01) ==
LOC: CHSCARD 13:39
PROVIDERS: PCP Family Medicine; Visit Provider Internal Medicine Cardiovascular Disease
DX: R00.2 Palpitations (principal); I48.91 Unspecified atrial fibrillation; I45.10 Unspecified right bundle-branch block; R94.31 Abnormal electrocardiogram [ECG] [EKG]
CPT/HCPCS: 93005

== ENCOUNTER 2024-05-14 10:04 | Outpatient (CLI) | payer MEDICARE, OTHER, SELFPAY ==
--- NOTE | ~2024-05-14 | CT_ITS ---
Non-contrast CT scan of the Abdomen and Pelvis Clinical indication: Incisional hernia Technique: 2.5 mm axial scans were obtained through the abdomen and pelvis without intravenous or or al contrast. Dose reduction technique was used on this scan by utilizing automated exposure control a nd iterative reconstruction technique. The dose-length product (DLP) was 805.39 mGy-cm. COMPARISON: 12/20/2022 Findings: Images through the lung bases reveal large calcified left basilar granulomas. There is no evidence of renal or ureteral calculi. The kidneys and the ureters are nondilated. Probable tiny gallstones. Calcified hepatic and splenic granulomas are present. The pancreas, and adr enals appear normal. There are atherosclerotic calcifications of the aorta. . Status post distal colectomy with left lower quadrant ostomy present. There is a large, wide necked v entral hernia, containing the central portion of the transverse colon as well as several small bowel loops and mesenteric fat. Hernia neck measures 8.9 cm in width. No bowel obstruction or bowel wall th ickening. Images through the pelvis are degraded by streak artifact from bilateral hip arthroplasty. There is n o evidence of ascites or lymphadenopathy. Visualized urinary bladder is grossly unremarkable. No pelv ic mass identified. There are bilateral L5 pars interarticularis defects, with 1 cm anterolisthesis of L5 over S1. Impression: Large, wide necked ventral hernia containing transverse colon and multiple small bowel loops, similar to prior exam. Please see details above. Cholelithiasis. Bilateral L5 pars interarticularis defects, with 1 cm anterolisthesis of L5 over S1. Other chronic findings, as above. Reviewed, dictated and finalized at [facility]. Impression: Large, wide necked ventral hernia containing transverse colon and multiple smal l bowel loops, similar to prior exam. Please see details above. Cholelithiasis. Bilateral L5 pars interarticularis defects, with 1 cm anterolisthesis of L5 ove r S1. Other chronic findings, as above.
== END 2024-05-14 10:05 | disposition home or self-care (01) ==
LOC: CHSIMG 10:05
PROVIDERS: PCP Family Medicine; Visit Provider Surgery
DX: K43.0 Incisional hernia with obstruction, without gangrene (principal); K80.20 Calculus of gallbladder without cholecystitis without obstruction; M43.17 Spondylolisthesis, lumbosacral region
CPT/HCPCS: 74176

== ENCOUNTER 2024-06-14 14:48 | Outpatient (CLI) | payer MEDICARE, OTHER, SELFPAY ==
--- NOTE | 2024-06-14 14:54 | ECG_ITS ---
Test Date: 2024-06-14 15:02:27 Measurements Intervals [place] Rate: 82 P: 70 SD: 155 QRS: 76 QRSD: 134 T: 63 QT: 384 QTc: 451 Interpretive Statements SINUS RHYTHM RIGHT BUNDLE BRANCH BLOCK [120+ ms QRS DURATION, UPRIGHT V1, 40+ ms S IN I/aVL/V4/V5/V6] Compared to ECG 05/10/2024 13:59:09 Atrial fibrillation no longer present Electronically Signed On 06-15-2024 11:58:00 CDT by Yara Tarango M.D.
== END 2024-06-14 14:49 | disposition home or self-care (01) ==
PROVIDERS: PCP Family Medicine; Visit Provider Internal Medicine Cardiovascular Disease
DX: I48.0 Paroxysmal atrial fibrillation (principal); I45.10 Unspecified right bundle-branch block
CPT/HCPCS: 93005

== ENCOUNTER 2024-09-21 13:22 | Outpatient (CLI) | payer MEDICARE, OTHER, SELFPAY ==
--- NOTE | 2024-09-21 13:27 | ECG_ITS ---
Test Date: 2024-09-21 13:37:35 Measurements Intervals [place] Rate: 80 P: 74 [place]: 156 QRS: 72 QRSD: 136 T: 59 QT: 394 QTc: 456 Interpretive Statements SINUS RHYTHM RIGHT BUNDLE BRANCH BLOCK [120+ ms QRS DURATION, UPRIGHT V1, 40+ ms S IN I/aVL/V4/V5/V6] Compared to ECG 06/14/2024 15:02:27 No significant changes Electronically Signed On 09-23-2024 12:32:59 [employer] P[employer] by Yara Tarango M.D.
== END 2024-09-21 13:23 | disposition home or self-care (01) ==
PROVIDERS: PCP Family Medicine; Visit Provider Internal Medicine Cardiovascular Disease
DX: I48.0 Paroxysmal atrial fibrillation (principal); I45.10 Unspecified right bundle-branch block
CPT/HCPCS: 93005

== ENCOUNTER 2024-10-12 16:43 | Outpatient (CLI) | payer MEDICARE, OTHER, SELFPAY ==
--- OUTSIDE RECORDS SUMMARY | 2024-10-12 16:46 | XMS_ITS | Clinical Summary ---
Author Organization [facility] Address [address] [place] [address] Care Team Providers Care Spar Finisher Name Role Phone Kelby Lew Primary Care Provider Jessi Orellana MD Unavailable [phone] Dmitry Mendoza MD Unavailable [phone] Allergies Active Allergy Reactions Criticality Noted Date Comments Penicillins Unknown Low 05/26/2018 Has tolerated amoxicillin and piperacillin/tazobactam Medications aspirin 81 mg chewable tablet Take 1 tablet (81 mg total) by mouth daily. 8 Active metoprolol XL (TOPROL-XL) 25 mg extended release tablet Take 1 tablet (25 mg total) by mouth daily 90 tablet 2 Active spironolactone (ALDACTONE) 25 mg tablet Take 1 tablet (25 mg total) by mouth daily 30 tablet 2 Active atorvastatin (LIPITOR) 40 mg tablet TAKE 1 TABLET(40 MG) BY MOUTH EVERY NIGHT 90 tablet 1 3 Active sodium, potassium & mag sulfates (SUPREP BOWEL KIT) 17.5-3.13-1.6 gram recon solnIndications:B owel Evacuation PLEASE TAKE THE 1ST BOTTLE AT 6PM THE DAY BEFORE THE PROCEDURE, AND THE SECOND BOTTLE 6 HOURS BEFORE LEAVING HOME IN THE MORNING 354 mL 4 Active sertraline (ZOLOFT) 50 mg tablet Take 1 tablet (50 mg total) by mouth daily 4 Active cilostazoL (PLETAL) 50 mg tabletIndications :Intermittent Claudication Take 1 tablet (50 mg total) by mouth 2 (two) times a day Active Active Problems Problem Noted Date Diagnosed Date Encounter for colonoscopy following colon polyp removal 10/22/2023 Cecal polyp 03/21/2023 Perforated bowel 11/18/2021 Peritonitis 11/17/2021 Diverticulitis large intestine 11/17/2021 Paroxysmal atrial fibrillation ([facility]/HCC) 022 Assessment & Plan (11/17/2021 3:48 PM CDT): Maintaining SR on IV amiodarone. Will transition to PO when GI tract allows. ACS (acute coronary syndrome) (CMS/[facility]) 11/11/19 22 Coronary artery disease invo lving [place] coronary artery of [place] heart 09/03/2018 Assessment & Plan (11/17/2021 3:47 PM CDT): Recent non STEMI complicated by cardiogenic shock, salvaged with left main PCI. She remains on cangrelor given ongoing ileus following surgery. Continue cangrelor until GI tract is working. At that point, will need to load with plavix. Hx of CABG 09/03/2018 Hypertension Surgical History Surgery Date Site/Laterality Comments TOTAL HIP ARTHROPLASTY 09/01/2014 - 08/31/2015 Left TONSILLECTOMY CORONARY ARTERY BYPASS GRAFT 05/28/2018 CABGx2 IMAGE GUIDED DRAINAGE PERITO MARCELA OR RETROPERITONEAL FLUID COLLECTION 11/28/2021 N/A TOTAL HIP ARTHROPLASTY 09/01/2022 - 08/31/2023 Right COLONOSCOPY CARDIAC STENT PLACEMENT 10/30/2021 - 11/29/2021 Medical History Medical History Date Comments Continuous tobacco abuse Thirty pack years Osteoarthritis of hip Status pos t left hip replacement 2014 Coronary artery disease 05/28/2018 CABGx2 Colon polyp Family History Medical History Relation Name Comments Cancer Father Colon cancer Father Hypertension Mother Relation Name Status Comments Father Alive Mother Alive Social History Tobacco Use Types Packs/Day Years Used Date Smoking Tobacco: Former Cigarettes 1 42 0 05/28/1976 - 05/28/2018 Smokeless Tobacco: Never Tobacco Cessation:Counseling Given: Not Answered Alcohol Use Standard Drinks/Week Comments Yes 0 (1 standard drink = 0.6 oz pur e alcohol) occ. beer and rare wine Social Connection and Isolat ion Panel [NHANES] Answer Date Recorded In a typical week, how many times do you talk on the phone with family, friends, or neighbors? More than three times a week 11/12/2021 How often do you get togethe r with friends or relatives? Twice a week 11/12/2021 How often do you attend chur ch or scientologist services? Never 11/12/2021 Do you belong to any clubs o r organizations such as worship groups, unions, fraternal or athletic groups, or school groups? Yes 11/12/2021 How often do you attend meet ings of the clubs or organizations you belong to? More than 4 times per year 11/12/2021 Are you , , di vorced, , never , or living with a partner? 11/12/2021 AUDIT-C Answer Date Recorded Q1: How often do you have a drink containing alc ohol? 2-3 times a week 11/21/2023 Q2: How many drinks containi ng alcohol do you have on a typical day when you are drinking? 3 or 4 11/21/2023 Frequency of Binge Drinking Not on file 10/31 Overall Financial Resource Strain (CARDIA) Answe r Date Recorded How hard is it for you to pa y for the very basics like food, housing, medical care, and heating? Not hard at all 11/12/2021 PRAPARE - Transportation Answer Date Re corded In the past 12 months, has l ack of transportation kept you from medical appointments or from getting medications? No 10/30 In the past 12 months, has l ack of transportation kept you from meetings, work, or from getting things needed for daily living? No 11/12/2021 Personal Safety Answer Date Recorded Have you ever been in or are you currently in a harmful physical or emotional relationship or is someone making you feel afraid or unsafe? Denies 11/28/2023 Comments No Sex and Gender Information Value Date Recorded Sex Assigned at Not on file Legal Sex Female 11:09 AM CDT Gender Identity Not on file Sexual Orientation Not on file Obstetrics History Last Filed Vital Signs Vital Sign Reading Time Taken Comments Blood Pressure 144/91 11/28/2023 10:40 AM CDT Pulse 86 11/28/2023 10:45 AM CDT Temperature 36.5 C (97.7 F) 11/28/2023 9:12 AM CDT Respiratory Rate 22 11/28/2023 10:45 AM CDT Oxygen Saturation 97% 11/28/2023 10:45 AM CDT Inhaled Oxygen Concentration - - Weight 79.4 kg (175 lb) 11/28/2023 9:12 AM CDT Height 172.7 cm (5' 8 ) 11/28/2023 9:12 AM CDT Body Mass Index 26.61 11/28/2023 9:12 AM CDT Plan of Treatment Health Maintenance Due Date Last Done Comments Breast Cancer Screening-Mammogram 1955 Depression Screening 1955 Hepatitis C Screening 1955 Osteoporosis Screening-Bone Density Scan 1955 DTaP/Tdap/Td Vaccine (1 - Tdap) 1968 Hepatitis B Screening 12/16/1975 Lung Cancer Screening 12/16/2007 Zoster Vaccine (1 of 2) 12/16/2007 Pneumococcal vaccine 65+ (1 of 1 - PCV) 2022 Well Visit 65+ 2022 Influenza Vaccine (#1) 2024 06/03/2020 Fall Risk Assessment 11/27/2024 11/28/2023 Colon Cancer Screening-Colonoscopy 11/27/20332023, 05/08/2023 Colon Cancer Screening-CT Colonography Discontinued , 05/08/2023 Colon Cancer Screening-DNA Stool Discontinued 11/28/19 24, 05/08/2023 Colon Cancer Screening-FIT Discontinued 11/28/2023, Colon Cancer Screening-Sigmoidoscopy Discontinued 10/31, 05/08/2023 Medical Devices Implanted Type Area Senior Office Support Assistant Sosa Device Identifier Shelf Expiration Date Model / Serial / Lot [employer] 76965-23 Device Clsr Perclose Prostyle Sut-Mediatd Closure-Repair Sys - S0 - [id number] Implanted:Qty: 1 on 11/10/2021 by Dmitry Mendoza MD at [facility] Other - see comments Left: Femoral [employer] 08/31/2023 37239-11 [employer] 61290-81 Device Clsr Perclose Prostyle Sut-Mediatd Closure-Repair Sys - [id number] - [id number] Implanted:Qty: 1 on 11/10/2021 by Dmitry Mendoza MD at [facility] [employer] 08/31/202315505-07 [employer] 25941-24 Device Clsr Perclose Prostyle Sut-Mediatd Closure-Repair Sys - [id number] - [id number] Implanted:Qty: 1 on 11/10/2021 by Dmitry Mendoza MD at [facility] V[employer] 08/31/2023 Impella Cp Percutaneous Left Ventricular Assist Device [id number] - [id number] - [id number] Implanted:Qty: 1 on 11/10/2021 by Dmitry Mendoza MD at [facility] [employer] 07/01/2023 0048-000 3 / [id number] / [id number] [employer] [id number] Stent Drug Eluting S Megatron Mr [id number] - [id number] - [id number] Implanted:Qty: 1 on 11/10/2021 by Dmitry Mendoza MD at [facility] [employer] 02/06/2022 [id number] / [id number] / [id number] Explanted Type Area Senior Office Support Assistant Sosa Device Identifier Shelf Expiration Date Model / Serial / Lot [employer] [id number] Seprafilm 6x5in Barrier Adhesion Sterile Disposable Latex Free - [id number] Explanted:Qty: 1 on 11/14/2021 at [facility] [employer] [id number] / / Procedures Procedure Name Priority Date/Time Associated Diagnosis Comments COLONOSCOPY 11/28/2023 9:23 AM CDT from Last 3 Months or Most Recently Relevant to Health Maintenance Results * Colonoscopy (11/28/2023 9:23 AM CDT) Anatomical Region Laterality Modality Other Narrative Procedure Note Jacqueline Caceres MD - 11/28/2023 9:23 AM CDT ENDOSCOPY LAB Patient Name: Jorge Min Procedure Date: 11/28/2023 9:23 AM Admit Type: Outpatient Room: [facility] Date of : 1955 Instrument Name: [id number] Gender: Female Note Status: Finalized Procedure: Colonoscopy Indications: High risk colon cancer surveillance: Personalhistory of colonic polyps S/p EMRI ascending colon polyp need FU exam Providers: Jacqueline Caceres M.D. Referring MD: Devan Disla D.O. Medicines: Monitored Anesthesia Care Complications: No immediate complications. Estimated Blood Loss: Estimated blood loss: none. Procedure: Pre-Anesthesia Assessment: - Prior to the procedure, a History and Physicalwas performed, and patient medications, allergies and sensitivities were reviewed. The patient'stolerance of previous anesthesia was reviewed. - The risks and benefits of the procedure and the sedation options and risks were discussed with the patient. All questions were answered and informed consent was obtained. - Immediately prior to administration ofmedications, the patient was re-assessed for adequacy to receive sedatives. - Sedation was administered by an anesthesia professional. Deep sedation was attained. The benefits, risks and alternatives of theprocedure and sedation were discussed and informed consentwas obtained. All questions were answered. Please referto the signed informed consent document in the medical record. The scope was passed under direct vision.The Colonoscope was introduced through the sigmoid colostomy and advanced to the the cecum, identifiedby appendiceal orifice and ileocecal valve. The colonoscopy was performed without difficulty. The patient tolerated the procedure well. The qualityof the bowel preparation was adequate. The quality ofthe bowel preparation was evaluated using the BBPS([place] Bowel Preparation Scale) with scores of: RightColon = 2 (minor amount of residual staining, smallfragments of stool and/or opaque liquid, but mucosa seenwell), Transverse Colon = 2 (minor amount of residual staining, small fragments of stool and/or opaque liquid, but mucosa seen well) and Left Colon = 2 (minor amount of residual staining, small fragmentsof stool and/or opaque liquid, but mucosa seen well).The total BBPS score equals 6. The quality of the bowel preparation was fair. The bowel preparation usedwas GoLYTELY via split dose instruction. Bowel prep was administered using a split dose. Bowel prep was administered using a split dose. Findings: Exam via colostomy only using cap fitted scope A 8 mm scar was found in the ascending colon. The scar tissue was healthy in appearance. Biopsies were taken with a cold forceps for histology. The pathology specimen was placed into Bottle B. Five sessile polyps were found in the ascending colon and cecum. The polyps were 5 to 12 mm in size. 4 polyps were removed with a coldsnare and one with Everlift injection 2cc followed by cold resection completely. Resection and retrieval were complete. The pathology specimen was placed into Bottle A. Three sessile polyps were found in the transverse colon. The polypswere 3 to 6 mm in size. These polyps were removed with a cold biopsyforceps x2 and one using cold snare. Resection and retrieval were complete.The pathology specimen was placed into Bottle C. Three sessile polyps were found in the descending colon. The polypswere 5 to 12 mm in size. These polyps were removed with a cold snare (one with evelift injection, 1.5cc and cold resection to follow).Resection and retrieval were complete. The pathology specimen was placed into Bottle D. A few small-mouthed diverticula were found in the sigmoid colon. The exam was otherwise without abnormality. Impression: - Preparation of the colon was fair. - Scar in the ascending colon. Biopsied. - Five 5 to 12 mm polyps in the ascending colon andin the cecum, removed with a cold snare. Resected and retrieved. - Three 3 to 6 mm polyps in the transverse colon, removed with a cold biopsy forceps. Resected and retrieved. - Three 5 to 12 mm polyps in the descending colon, removed with a cold snare. Resected andretrieved. - Diverticulosis in the sigmoid colon. - The examination was otherwise normal. Recommendation: - -Observe pt in recovery. - Discharge patient to home when stable. - Patient has a contact number available for emergencies. The signs and symptoms of potential delayed complications were discussed with thepatient. Return to normal activities tomorrow. Written discharge instructions were provided to thepatient. - Resume previous diet. - Continue present medications. - Await pathology results. - The findings and recommendations were discussedwith the patient. - In the unusual situation that you developabdominal pain, bleeding or other significant problems inthe days following this procedure please call my office [phone]). After hours and eveningsplease call [phone] and speak to the GI fellow oncall fellow. Please tell the fellow that Dr. Caceres did your procedure and that you were instructed to have the fellow call me or the physician covering for meto discuss the management of your condition. If youhave an urgent problem, please go to the nearestemergency room and have the ER doctor call my office duringthe day or the GI fellow after hours and weekends to arrange admission or transfer to our facility.Please bring this report with you if you go to theemergency room. - Repeat colonoscopy in 1 year for surveillance. -Refer pt for Genetic Evaluation, for polyposis syndrome with multiple colon polyps -Resume antiplatelet therapy tomorrow Attending Participation: I personally performed the entire procedure. Electronically signed by Jacqueline Caceres MD Jacqueline Caceres M.D. 11/28/2023 10:25:29 AM This document was signed electronically. Number of Addenda: 0 Note Initiated On: 11/28/2023 9:23 AM Scope In: Scope Out: Jacqueline Caceres MD ENDOSCOPY PROCEDURES F inal Result from Last 3 Months or Most Recently Relevant to Health Maintenance Insurance [facility] MEDICARE [employer]IG[employer] [facility] Member Subscriber Plan / Payer (Ef fective 2018-Present) Name:Jorge Min Relation to Subscriber:Self Name:Jorge Min Payer ID:[id number] (NAIC) Group ID:[id number] Type:CIGNA HMO/PPO Address: [facility] [place] [address] MEDICARE [facility] Advance Directives For more information, please contact: [phone] * Full Code (Latest Code Status on File) Date Activated Date Inactivated Comments 11/28/2023 9:12 AM 11/28/2023 2:58 PM * Full Code Date Activated Date Inactivated Comments 05/08/2023 9:01 AM 05/08/2023 4:13 PM * LIMITED - No CPR Date Activated Date Inactivated Comments 12/07/2021 10:21 AM 12/14/2021 6:02 PM Question Answer Comments Provide aggressive medical m anagement before a full cardiopulmonary arrest occurs. Use antibiotics, IV Fluids, and medical treatment unless specifically selected below: No intubationNo cardioversion * Full Code Date Activated Date Inactivated Comments 12/06/2021 7:24 PM 12/07/2021 10:21 AM * Full Code Date Activated Date Inactivated Comments 11/14/2021 8:30 AM 12/06/2021 7:19 PM Care Teams Spar Finisher Relationship Specialty Start Date End Date Kelby Lew DO [address] [place] [address] PCP - General Family Medicine 09/14/20 Jessi Orellana MD [address] [place] [address] Referring Physician Surgery 12/05/21 Dmitry Mendoza MD [address] [facility] [address] [place] [address] Consulting Physician Cardiovascular Disease 12/05/21
--- OUTSIDE RECORDS SUMMARY | 2024-10-12 16:46 | XMS_ITS | Encounter Summary ---
Author Organization [facility] Healthcare Address [address] [place] [address] Care Team Providers Care Seismograph Chief Name Role Phone Kelby Lew DO Primary Care Provider Jessi Orellana MD Unavailable [phone] Dmitry Mendoza MD Unavailable [phone] Encounter Details Date Type Department Care Team (Late st Contact Info) Description 12/06/[address] [facility] Physical Medicine and Rehabilitation [address] [place] [address] Kalina Basurto, DIRECTOR MARKETING COMMUNICATIONS Social History Tobacco Use Types Packs/Day Years Used Date Smoking Tobacco: Former Cigarettes 1 42 0 05/28/1976 - 05/28/2018 Smokeless Tobacco: Never Alcohol Use Standard Drinks/Week Comments Yes 0 [...] often do you attend chur ch or denominational services? Never 11/12/2021 Do you belong to any clubs o r organizations such as muslim groups, unions, fraternal or athletic groups, or school groups? Yes 11/12/2021 How often do you attend meet ings of the clubs or organizations you belong to? More than 4 times per year 11/12/2021 Are you , , di vorced, , never , or living with a partner? 11/12/2021 Overall Financial Resource Strain (CARDIA) Answe r [...] things needed for daily living? No 11/12/2021 Comments Unknown Sex and Gender Information Value Date Recorded Sex Assigned at Not on file Legal Sex Female 11:09 AM CDT Gender Identity Not on file Sexual Orientation Not on file documented as of this encounter Last Filed Vital Signs Vital Sign Reading Time Taken Comments Blood Pressure - - Pulse - - Temperature - - Respiratory Rate - - Oxygen Saturation - - Inhaled Oxygen Concentration - - Weight 72.1 kg (159 lb) 12/06/2021 12:36 PM CDT Height 172.7 cm (5' 8 ) 12/06/2021 12:36 PM CDT Body Mass Index 24.18 12/06/2021 12:36 PM CDT documented in this encounter Miscellaneous Notes * Pre-Admission Screening - Kalina Basurto SLP - 12/06/2021 12:51 PM CDT [facility] Physical Medicine and Rehabilitation Preadmission Screening Reason for Consult: Jorge Min is a 65 y.o. female with a medical diagnosis of increased troponins and Rehab Diagnosis: NSTEMI whose probable impairment code for inpatient rehabilitation is: Impairment Code Group: Cardiac The following information was gathered for consideration and maintenance in the medical record to substantiate medical necessity for IRF level of care. Patient is currently at [facility] . The patient is being referred and recommended by Dr. Mendoza to be assessed both medically and functionally in regard to their premorbid functional capacity to determine whether they can benefit from a rehabilitation level of care offered by our facility. The following information is regarding the medical complexity and clinical risk factors that need to be considered for the appropriate management of the patient's care and recovery. RECOMMENDATIONS / PLAN: Goals for admission:to resolve all medical issues to optimal level and to improve patients functional independence to an independent level overall for self cares, ambulation, and transfers with leastrestrictive device Likelihood of reaching these goals: Medical Prognosis: Medical prognosis appears good due to ongoing medical issues and existing comorbidities Functional Prognosis: Functional prognosis appears good for patient to recover to an Independent level overall for self cares, ambulation and transfers with least restrictive device Therapies required to achieve goals:The patient will benefit from integrated coordination of care from the following interdisciplinary services: Medical Supervision, 24 hours Rehabilitation Nursing, Physical Therapy, Occupational Therapy, Case Management, Social Work Expected level of improvement is: excellent Expected level of improvement at discharge is: independent Strengths for achieving goals: Strengths: Able to tolerate intensive inpatient rehab program, Motivated, Good family/social support, Support of pets, Good premorbid functional status, Good premorbid medical status Barriers to achieving goals: Barriers: Comorbidities (pain and ongoing medical issues) Expected length of stay: Estimated Length of Stay: 14 days When medically stable, anticipated disposition: Anticipated destination post discharge from inpatient rehab: community discharge with assist Information regarding the rehab process including risks/benefits and financial issues were discussed with the patient and/or family and they have agreed to accept rehabilitation risks and benefits. Payor Source: Primary: [facility] Secondary:Authorization number [id number] Case discussed with Dr. Reddy on 12/03/21 @ 0930. Appropriateness for admission to the Inpatient Rehab Facility: yes The Pre-admission screen is an assessment of the patient's medical and functional status and has been reviewed by a rehab physician. It has been determined by the rehab physician that this patient will benefit from a comprehensive inpatient rehab admission to meet the identified goals and manage ongoing medical issues. The physician will provide documentation that supports an inpatient rehab admission including real and potential complications for which the patient is at risk with a plan to manage and avoid those risks HISTORY: Past Medical History: Past Medical History: Diagnosis Date ??? Continuous tobacco abuse Thirty pack years ??? Coronary artery disease 05/28/2018 CABGx2 ??? Osteoarthritis of hip Status post left hip replacement 2014 Past Surgical History: Past Surgical History: Procedure Laterality Date ??? CORONARY ARTERY BYPASS GRAFT 05/28/2018 CABGx2 ??? IMAGE GUIDED DRAINAGE PERITONEAL OR RETROPERITONEAL FLUID COLLECTION N/A 11/28/2021 ??? TONSILLECTOMY ??? TOTAL HIP ARTHROPLASTY Left 2014 Social History: Social History Socioeconomic History ??? Marital status: Tobacco Use ??? Smoking status: Former Smoker Packs/day: 1.00 Years: 42.00 Pack years: 42.00 Types: Cigarettes Quit date: 05/28/2018 Years since quittin.5 ??? Smokeless tobacco: Never Used Substance and Sexual Activity ??? Alcohol use: Yes Comment: occ. beer and rare wine ??? Drug use: No Social Determinants of Health Financial Resource Strain: Low Risk ??? Difficulty of Paying Living Expenses: Not hard at all Transportation Needs: No Transportation Needs ??? Lack of Transportation (Medical): No ??? Lack of Transportation (Non-Medical): No Social Connections: Moderately Integrated ??? Frequency of Communication with Friends and Family: More than three times a week ??? Frequency of Social Gatherings with Friends and Family: Twice a week ??? Attends Baptism Services: Never ??? Active Member of Clubs or Organizations: Yes ??? Attends Club or Organization Meetings: More than 4 times per year ??? Marital Status: Patient's Preferred Language: Moroccan Cultural Requests During Hospitalization: Closed/Suction/Open Drain 1 Right;Midline Abdomen 8.5 Fr.8 days Surgical Site 11/10/21 Anterior;Right Thigh dressing dry and intact rt hip surg done on 10/1024 days Surgical Site 11/14/21 Perineum 21 days Surgical Site 11/14/21 Mid-line Abdomen 21 days Wound 11/23/21 Anterior;Left Forearm 13 days Acute Conditions/Co-morbidities requiring Acute Rehab: Myocardial infarction, Uncontrolled HTN, Uncontrolled DM, Other (comment), Congestive heart failure, Anemia (right hip arthroplasty; acute systolic heart failure with cardiogenic shock; anemia; sigmoid colon perforation with peritonitis; left coloctomy colostomy; acute respiratory failure; DVT/GGI PPX) HPI: 11/10/21: CRITICAL CARE ADMISSION NOTE She is a 65-year-old female with a history of admission to [facility] where she underwent right hip replacement for worn out hip. She has had a history of CABG about [address] Ellison here. Postprocedure, last night she developed diaphoresis for which she was taken to the cardiac catheterization lab there. She was found to have an occluded LAD and a tight left main. She has been pain free along with no shortness of breath, nausea, or vomiting. She was brought to [facility] for further management. Prior to her procedure last night, she has really had no symptoms of chest pain whatsoever and actually is very active since her last CABG. She had given up smoking at that time. IMPRESSION AND PLAN 1. Multivessel coronary disease in the setting of a history of coronary disease with previous CABG.Continue aspirin and Plavix. For now, she is pain free. Dr. Mendoza is to evaluate and possibly take her to the cardiac catheterization lab. 2. Hypertension history. We will continue Lopressor. 3. Reported diabetes mellitus type 2, although I do not find any records regarding this. We will have to readdress. 4. History of recent right hip replacement as well as left hip replacement in the past. 5. History of tonsillectomy. 6. DVT prophylaxis. 11/10/21: Cardiology History and Physical/Consult Note Chief Complaint/History of Present Illness 65 year old woman with tobacco use, CAD with 2V CABG (GAYLE-LAD and SVG-RCA) in 2018 who transfers from [facility] urgently due to ACS with cardiogenic shock. Patient underwent elective R hip arthroplasty at [place] on 11/08/21. She was recuperating in the hospital when early this AM she developed nausea, diaphoresis and hypotension. An EKG showed prominent diffuse STD, and troponins were found to be significantly elevated. Initiation of pressor support with levophed was necessary to correct the hypotension. She underwent a CTPE scan which showed no PE. She was taken to their cathead worker earlier this AM where angiography showed patent SVG-RCA; patent GAYLE-LAD however the distal LAD was occluded shortly after the anastomosis fed by R->L collaterals;and a critical 99% hazy lesion of the LM into an ungrafted LCx. At this point transfer was requested to [facility] for high risk intervention. An echo prior to transfer showed LVEF 35-40% without LV thrombus. The patient has continued to require low dose levophed to maintain her BP. Upon arrival to [facility],she reports R hip pain but denies any active chest pain or significant dyspnea. She has not had any subjective or measured fevers post-operatively, and her H&H is stable. Assessment and Plan 65 year old woman with tobacco use, CAD with 2V CABG (AGYLE-LAD and SVG-RCA) in 2018 who transfers from [facility] urgently due to ACS with cardiogenic shock. Review of outside cath films points to the LM/LCx lesion as likely culprit for her ACS presentation. The LAD is occluded after GAYLE anastomosis but given well-formed R-L collaterals suspect this is not acute finding. Outside echo shows moderate LV dysfunction; anterior and inferolateral fischer and apex hypokinetic, though LAD territory appears thinned and suggestive of possible scar. She remains relatively hypotensive with persistent pressor requirement, and her arrival EKG shows evidence of active ischemia. Discussed situation with patient and her family at bedside. Recommend emergent PCI of the LM/LCx lesion given ongoing evidence of cardiogenic shock. Patient and her family are agreeable with this plan, and we discussed above average risk of this procedure given shock and acuity of situation. Will perform RHC prior to intervention to determine need for mechanical support. #. NSTEMI, prior CABG, likely acute LM/LCx culprit lesion #. Acute systolic heart failure with cardiogenic shock #. Tobacco use #. Anemia #. Recent R hip arthroplasty Recommendations/Plan - emergent PCI of the LM/LCx +/- mechanical support pending RHC results - continue DAPT, statin - cont levophed 1st line pressor, wean post procedure as able - echo tomorrow - will follow PAST MEDICAL HISTORY 1. Coronary artery disease with previous CABG. 2. Hypertension. 3. Hyperlipidemia. 4. Diabetes mellitus, type 2. 5. Hepatitis C. 11/14/21: Colorectal Surgery Consultation Chief Complaint: Jorge Min is a 65 y.o. female with chief complaint of abdominal pain. 65 y.o. female with tobacco abuse, CAD s/p CABG, HTN, HLD who underwent right hip replacement 11/08/2021 which was complicated postoperatively by a NSTEMI requiring urgent ANTONIO 11/10/21 for hemodynamic instability. She has been weaned off of pressors, currently in sinus, and is on aspirin and plavix. She underwent postprocedure CT scan due to anemia after the stent and was noted to have free air with concern for a sigmoid source. Her abdominal exam was benign and given her recent stent and stability, it was managed conservatively with antibiotics and observation. She then developed increasing abdominal pain, nausea, and bilious emesis along with increasing distention overnight and did do back into afib. She converted back to sinus and a KUB this am demonstrated increasing free air in addition to worsening abdominal exam. She underwent repeat CT scan this morning which demonstrates worsening free air, some pelvic fluid, and likely developing small bowel obstruction. There is not much inflammation near the sigmoid with concern for possible malignancy. These images were personally reviewed. She has never had a previous colonoscopy and has a family history of diverticular disease. I was asked to see the patient given her worsening abdominal exam and free air. Assessment/Plan Jorge Min is a 65 y.o. female with MMP including recent ANTONIO for unstable angina/NSTEMI with free air and concern for perforated sigmoid diverticulitis verses malignancy. She has been observed since the initial incidental free air finding on CT scan 2 days ago, however is now more symptomatic with increasing abdominal pain consistent with peritonitis, distention, worsening leukocytosis. Her abdominal exam is also worsening from when I first evaluated her this morning to after the CT scan and she is more lethargic without receiving medications to explain this. She obviously is very high risk for perioperative complications given her recent VT, ANTONIO while on aspirin and plavix. Unfortunatel y her repeat CT scan demonstrates development of fluid within the pelvis and developing bowel obstruction with transition point where the perforation is located with worsening abdominal exam. I do not think that percutaneous options are viable for this, especially given concern for possible malignancy. Therefore, although high risk I have recommended proceeding with exploration, colectomy, likelycolostomy. She has been marked for a stoma and wishes to proceed with surgery. Her code status has been changed back to full code. 11/14/21: Colorectal Surgery Inpatient Consult Note The patient underwent cardiac catheterization on 11/10 with PCI of the left main into the proximal LCx ANTONIO x1 and has been on ASA and Plavix. CT CAP was performed 11/12/2021 for the evaluation of post procedural anemia. Incidentally it was found there is a significant amount of intraperitoneal free air with questionable acute sigmoid diverticulitis with perforation. CRS was consulted on above findings. Assessments and plans: Acute diverticulitis probably with perforation with significant amount of intraperitoneal free air per CT imaging - the patient was seen and examined with Dr. Orellana in ICU - reviewed with Dr. Green. The patient was completely asymptomatic yesterday but started to complaining of mild abdominal pain today. - her abdominal exam showed no s/sx of peritonitis - recommending IV Zoxyn (patient reported childhood allergy to Penicillins but tolerated amoxicillin), repeat CT imaging today, hopefully intraperitoneal free air may be managed by IR with drain placement since this is a high risk patient for surgery - will review CT images once available and recommendations follow - low threshold to proceed to OR, will consult wound care team for ostomy marking 11/14/2021: EXPLORATORY LAPAROTOMY, COLOSTOMY, Drain Placement, wound vac, left colectomy, partial omentectomy, right salpingectomy, end colostomy, flex sig, abdominal washout PLACEMENT PREOPERATIVE STENT - URETERAL PREOPERATIVE DIAGNOSIS: Pneumoperitoneum POSTOPERATIVE DIAGNOSIS: Sigmoid colon perforation 11/15/21: Wound/Ostomy Pt seen for occluded midline incisional vac and new LUQ colostomy. Bleeding noted from distal portion of incision and from mucocutaneous junction of colostomy. Midline abdominal incision approximatedw/jory-wound vac changed- adaptic and black foam used. LUQ colostomy red/burgundy, round, everted- appliance changed. Will continue to see for post op teaching. 11/22/21: ID Consult Assessment: 65 y.o. female with past medical history of CAD s/p CABG (2017), hx tobacco use, anemia, Afib, CHF,and OA, presented to [facility] as transfer from [facility] for cardiac eval. 1. Sigmoid colon perforation with peritonitis s/p exp lap with left colectomy with en bloc resection of??omentum, end colostomy with osman's procedure,??flex sig, abdominal washout, drainage of abscess, and right salpingectomy on 11/14 2. Fever, resolved 3. Leukocytosis 4. NSTEMI s/p stenting 11/10 5. Acute respiratory failure, extubated 11/11 6. S/p R hip replacement 11/08/21 7. Hx tobacco use 8. CAD s/p CABG Plan: -will restart IV Zosyn until 11/24 -will restart IV fluconazole until 11/27 (will switch to PO when able to tolerate) -blood cx were negative -colorectal surgery following -cardiology following -encourage up to chair, out of bed as tolerated -Follow CBC, CMP and temps - will check LFTs in AM -Supportive care -recommend removal of CVC and ok for PICC line for TPN if plan to continue 12/05/21: COLORECTAL SURGERY PROGRESS NOTE SUBJECTIVE 65 y.o. female with a history of multiple chronic medica problems who was transferred to [facility] secondary to NSTEMI requiring cardiac stenting on 11/10 s/p right hip arthroplasty at [facility]. She developed pneumoperitoneum and peritonitis and was emergently taken to OR by Dr. Orellana on 11/14. Patient continues to improve. Tolerating diet without nausea/vomiting. Off TPN. Appetite improving. Colostomy viable and functioning with brown liquid stool. Midline abd incision line well approximated with jory. Distal area of incision line with decreased drainage. IR drain was removed at bedside 12/03. [facility], awaiting insurance approval. INTERVAL HISTORY 11/14/2021: EXPLORATORY LAPAROTOMY, COLOSTOMY, Drain Placement, wound vac, left colectomy, partial omentectomy, right salpingectomy, end colostomy, flex sig, abdominal washout by Jessi Orellana MD 11/21/2021: wound vac removed 11/28: IR drain placed for intraabdominal fluid collection 12/03: IR drain removed 12/04: TPN d/primo ASSESSMENT/PLAN Principal Problem Sigmoid colon perforation, s/p EXPLORATORY LAPAROTOMY, COLOSTOMY, Drain Placement, wound vac, left colectomy, partial omentectomy, right salpingectomy, end colostomy, flex sig, abdominal washout POST-OP DAY: 21 Days Post-Op Procedure findings reviewed All questions answered - continue to improve - trasitioned to oral anticoagulation 12/03 - plan to remove jory on Friday or the day of discharge - Increase activities, ambulation, incentive spirometry, PT/OT evaluation and treatment - advance diet to heart healthy, protein drinks, calorie count - Ostomy care and education - dressing change with gauze packing TID or as needed - Social service/case management consult for placement or discharge needs - DVT prophylaxis: SCDs, Lovenox 40mg daily - stable to discharge once placement available - follow up with Dr. Orellana in 2-3 weeks 12/05/21: ID Progress Note: Assessment: 65 y.o.??female??with past medical history of??CAD s/p CABG (2018), hx tobacco use, anemia, Afib, CHF, and OA,??presented to[facility] as transfer from [facility] for cardiac eval. 1. Sigmoid colon perforation with peritonitis s/p exp lap??with left colectomy with en bloc resection of??omentum, end colostomy with osman's procedure,??flex sig, abdominal washout, drainage of abscess, and right salpingectomy on 11/14 --> CT shows fluid collections now concerning for possible abscess s/p IR drainage and placement of drain 11/28, s/p drain removal on 12/03 2. Fever, resolved 3. Leukocytosis 4. NSTEMI s/p stenting 11/10 5. Acute respiratory failure, extubated 11/11 6. S/p R hip replacement 11/08/21 7. Hx tobacco use 8. CAD s/p CABG 9. Penicillin allergy (as kid however pt has been tolerating Zosyn) Plan: -completed Zosyn on 11/24 and fluconazole on 11/27 for peritonitis -completed Zosyn on 12/04 for fluid collection s/p drain removal -monitor off abx -colorectal surgery following -cardiology following -encourage up to chair, out of bed as tolerated -Follow CBC, CMP -Supportive care 12/06/21: CARDIOLOGY PROGRESS NOTE ASSESSMENT/PLAN: #. NSTEMI, prior CABG: culprit critical LM/LCx s/p rota PCI with good result. No recurrent CP - continue asa 81, ticagrelor 90 b.i.d., atorva 20 #. Acute systolic HF: cardiogenic shock on presentation, resolved post PCI. Echo post PCI showed normalized EF. Euvolemic - continue metoprolol XL 25 daily - deferred JD given low baseline BP and normalization of EF after PCI. Can reassess in outpatient setting if BP higher #. AF with RVR: 2 brief episodes early on this admission, remained in sinus since then for 2 weeks during remainder of hospitalization - deferred AC given need for multiple procedures and limited to 2 brief episodes early in admission. If additional AF occurs then would reconsider - event monitor at discharge to ensure no recurrent AF #. Tobacco use: cessation discussed Prior to admission: patient was Independent with ambulation, ADLs, transfers, homemaking Currently, patient requires SBA for bed mobility; CGA for grooming, Mod A for bathing, Min A for LEDressing, SBA for ambulation 10+25ft with WW Due to ongoing medical issues and a significant decline in functional independence, patient is now referred for acute inpatient rehab program Date of Onset: Date of Onset: 11/08/21 Date Admitted to Acute: Date admitted to acute: 11/08/21 Precautions/Restrictions: Falls, Cardiac Weight Bearing Precautions: WBAT Totz Suicide Severity Rating Scale: Allergies: Allergies Allergen Reactions ??? Penicillins Unknown Has tolerated amoxicillin and piperacillin/tazobactam Code Status: Full Code Vitals: There were no vitals filed for this visit. Current Systems Summary: Height: 172.7 cm (5' 8 ) Weight: 72.1 kg (159 lb) Diet: Adult Diet Regular: General starting at 12/04 1158 Oral Nutrition Supplements Select Supplement: August - Send Packet Only; Nutrition Additives: August - Unflavored starting at 12/03 1200 Oral Nutrition Supplements Select Supplement: Ensure Clear - Mixed Taylor starting at 12/02 1216 Bladder: Deleon cath (External Urinary Catheter 8 days) Bowel: Ostomy (Colostomy End LUQ 21 days) Date of last BM: Integumentary: Brant score 20; Closed/Suction/Open Drain 1 Right;Midline Abdomen 8.5 Fr. 8 days Surgical Site 11/10/21 Anterior;Right Thigh dressing dry and intact rt hip surg done on 11/08 25 days Surgical Site 11/14/21 Perineum 21 days Surgical Site 11/14/21 Mid-line Abdomen 21 days Wound 11/23/21 Anterior;Left Forearm 13 days Cardiopulmonary: Room air Dialysis: N/A Pain: Patient has pain that is controlled on current regimen IVs: Peripheral IV, PICC (Peripheral IV 11/10/21 20 G Anterior;Right Forearm 25 days PICC Triple Lumen 11/23/21 #1 [place]iam, #2 White, #3 Red, Right Antecubital 12 days) Current meds: Current Facility-Administered Medications on File Prior to Visit Medication Dose Route Frequency Provider Last Rate Last Admin ??? acetaminophen (TYLENOL) tablet 650 mg 650 mg oral Q4H PRN Dmitry Mendoza MD 650 mg at 11/13/21 1438 ??? aspirin enteric coated tablet 81 mg 81 mg oral Daily Dmitry Mendoza MD 81 mg at 12/06/21 0847 ??? atorvastatin (LIPITOR) tablet 20 mg 20 mg oral Daily Dmitry Mendoza MD 20 mg at 12/06/21 0905 ??? benzocaine-menthoL (CHLORASEPTIC) lozenge 1 lozenge 1 lozenge mouth/throat Q2H PRN Gita Craig NP ??? bisacodyl EC (DULCOLAX EC) tablet 5 mg 5 mg oral Daily PRN Geoffrey Green MD 5 mg at 11/12/21 1330 ??? enoxaparin (LOVENOX) syringe 40 mg 40 mg subcutaneous Daily-2100 Geoffrey Green MD 40 mgat 12/05/212047 ??? metoprolol XL (TOPROL-XL) extended release tablet 25 mg 25 mg oral Daily Dmitry Mendoza MD 25 mg at 12/06/21 0845 ??? mirtazapine (REMERON) tablet 7.5 mg 7.5 mg oral Nightly Toni Solano, DO 7.5 mg at 12/05/212047 ??? morphine injection 2 mg 2 mg intravenous Q3H PRN Dmitry Mendoza MD 2 mg at 11/14/21 0124 ??? naloxone (NARCAN) 0.4 mg/mL injection 0.04-0.4 mg 0.04-0.4 mg intravenous Q10 Min PRN Jessi Orellana MD ??? oxyCODONE-acetaminophen (PERCOCET) 5-325 mg per tablet 1 tablet 1 tablet oral QID PRN Geoffrey Green MD 1 tablet at 11/30/21 0013 ??? pantoprazole (PROTONIX) 40 mg/10 mL in sodium chloride 0.9% (premix) 40 mg 40 mg intravenous Daily Steve Du, DO 40 mg at 12/06/21 0905 ??? prochlorperazine (COMPAZINE) injection 5 mg 5 mg intravenous Q4H PRN Dev Ponce MD 5 mgat 12/01/21 1850 ??? psyllium (aspartame) SF (METAMUCIL SF) 3.4 gram packet 1 packet 1 packet oral BID Afshan Aggarwal NP 1 packet at 12/04/212001 ??? ramelteon (ROZEREM) tablet 8 mg 8 mg oral Nightly PRN Monalisa Levine NP 8 mg at12/03/212207 ??? sertraline (ZOLOFT) tablet 25 mg 25 mg oral Daily Geoffrey Green MD 25 mg at 12/06/21 0905 ??? sodium chloride 0.9% flush 5-10 mL 5-10 mL intra-catheter Q12H RASHID Steve Du, DO 10 mL at 12/06/21 0905 ??? sodium chloride 0.9% flush 5-20 mL 5-20 mL intra-catheter PRN Steve Du, DO ??? spironolactone (ALDACTONE) tablet 25 mg 25 mg oral Daily Dmitry Mendoza MD 25 mg at 12/06/21 0847 ??? ticagrelor (BRILINTA) tablet 90 mg 90 mg oral BID Dmitry Mendoza MD 90 mg at 12/06/21 0845 ??? traMADoL (ULTRAM) tablet 50 mg 50 mg oral Q4H PRN Geoffrey Green MD 50 mg at 12/04/21 0039 Current Outpatient Medications on File Prior to Visit Medication Sig Dispense Refill ??? aspirin 81 mg chewable tablet Take 1 tablet (81 mg total) by mouth daily. ??? atorvastatin (LIPITOR) 40 mg tablet Take 40 mg by mouth nightly ??? clopidogreL (PLAVIX) 75 mg tablet Take 75 mg by mouth daily ??? metoprolol tartrate (LOPRESSOR) 25 mg immediate release tablet Take 12.5 mg by mouth 2 (two) times a day ??? metoprolol XL (TOPROL-XL) 25 mg extended release tablet Take 1 tablet (25 mg total) by mouth daily 30 tablet 11 ??? mirtazapine (REMERON) 7.5 mg tablet Take 1 tablet (7.5 mg total) by mouth nightly 30 tablet 0 ??? sertraline (ZOLOFT) 25 mg tablet Take 25 mg by mouth daily ??? spironolactone (ALDACTONE) 25 mg tablet Take 1 tablet (25 mg total) by mouth daily 30 tablet 11 ??? ticagrelor (BRILINTA) 90 mg tablet Take 1 tablet (90 mg total) by mouth 2 (two) times a day 60 tablet 11 Substance abuse history: Jorge Min reports that she quit smoking about 3 years ago. Her smoking use included cigarettes. She has a 42.00 pack-year smoking history. She has never used smokeless tobacco. She reports current alcohol use. She reports that she does not use drugs. Diagnostic Tests: Recent Results (from the past 72 hour(s)) POCT glucose Collection Time: 12/03/21 6:01 PM Result Value Ref Range Glucose, POC 144 (H) 70 - 140 mg/dL POCT glucose Collection Time: 12/03/21 11:46 PM Result Value Ref Range Glucose, POC 123 70 - 140 mg/dL POCT glucose Collection Time: 12/04/21 5:42 AM Result Value Ref Range Glucose, POC 130 70 - 140 mg/dL Renal function panel Collection Time: 12/04/21 6:43 AM Result Value Ref Range Sodium 133 (L) 135 - 145 mmol/L Potassium, pl 4.1 3.3 - 4.9 mmol/L Chloride 104 97 - 110 mmol/L CO2 22 22 - 32 mmol/L Anion gap 7 2 - 15 mmol/L BUN 16 8 - 25 mg/dL Creatinine 0.66 0.60 - 1.10 mg/dL Glucose 132 70 - 199 mg/dL Calcium 8.0 (L) 8.5 - 10.3 mg/dL Phosphorus, pl 3.5 2.3 - 4.5 mg/dL Albumin 2.7 (L) 3.5 - 5.0 g/dL Magnesium Collection Time: 12/04/21 6:43 AM Result Value Ref Range Magnesium 2.0 1.4 - 2.5 mg/dL eGFR Collection Time: 12/04/21 6:43 AM Result Value Ref Range eGFR 99 mL/min/1.73 m2 POCT glucose Collection Time: 12/04/21 12:26 PM Result Value Ref Range Glucose, POC 196 (H) 70 - 140 mg/dL POCT glucose Collection Time: 12/04/21 7:57 PM Result Value Ref Range Glucose, POC 91 70 - 140 mg/dL Magnesium Collection Time: 12/05/21 4:11 AM Result Value Ref Range Magnesium 2.0 1.4 - 2.5 mg/dL Renal function panel Collection Time: 12/05/21 4:11 AM Result Value Ref Range Sodium 134 (L) 135 - 145 mmol/L Potassium, pl 4.4 3.3 - 4.9 mmol/L Chloride 103 97 - 110 mmol/L CO2 25 22 - 32 mmol/L Anion gap 6 2 - 15 mmol/L BUN 17 8 - 25 mg/dL Creatinine 0.65 0.60 - 1.10 mg/dL Glucose 83 70 - 199 mg/dL Calcium 8.6 8.5 - 10.3 mg/dL Phosphorus, pl 3.4 2.3 - 4.5 mg/dL Albumin 3.1 (L) 3.5 - 5.0 g/dL eGFR Collection Time: 12/05/21 4:11 AM Result Value Ref Range eGFR 99 mL/min/1.73 m2 Influenza A/B, RSV, and COVID-19 PCR Nasopharyngeal Collection Time: 12/05/21 3:54 PM Specimen: Nasopharyngeal Result Value Ref Range COVID-19 RNA Negative Negative Influenza A RNA Negative Negative Influenza B RNA Negative Negative RSV RNA Negative Negative Magnesium Collection Time: 12/06/21 5:06 AM Result Value Ref Range Magnesium 2.2 1.4 - 2.5 mg/dL Renal function panel Collection Time: 12/06/21 5:06 AM Result Value Ref Range Sodium 136 135 - 145 mmol/L Potassium, pl 4.2 3.3 - 4.9 mmol/L Chloride 104 97 - 110 mmol/L CO2 24 22 - 32 mmol/L Anion gap 8 2 - 15 mmol/L BUN 18 8 - 25 mg/dL Creatinine 0.80 0.60 - 1.10 mg/dL Glucose 80 70 - 199 mg/dL Calcium 8.7 8.5 - 10.3 mg/dL Phosphorus, pl 4.3 2.3 - 4.5 mg/dL Albumin 3.3 (L) 3.5 - 5.0 g/dL eGFR Collection Time: 12/06/21 5:06 AM Result Value Ref Range eGFR 83 mL/min/1.73 m2 Prior Functional Status: Mobility status/Ambulation aid/assistive devices: Transfers: Independent Walking: Independent Walking assistive devices used: None Stair negotiation: Independent Falls: Has the patient had 2 or more falls in the past year or any fall with injury in the past year?: No Activities of daily living (ADL) status/ Assistive devices used for ADLs: Dressing: Independent Bathing: Independent Toileting: Independent Bladder: Continent Bowel: Continent Domestic Chores: Independent Driving: Yes Functional limitations: Hearing: Normal Sensory Vision: Normal Cognition: Intact Communication: Normal Nutrition: Normal 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: Homemaker Home Setting: Two story home Prehospital Lives With: Spouse Exterior Home Access: No steps Interior Home Access: Steps (14 steps) Stairs needed to access: Bedroom; Bathroom Current functional status: ADL: OT Functional Mobility: 12/05/21: transfers CGA (12/06/2021 12:46 PM) OT Self Care: grooming CGA; LE Dressing Min A; Bathing Mod A (12/06/2021 12:46 PM) OT Cognition: wfl (12/06/2021 12:46 PM) OT Communication: wfl (12/06/2021 12:46 PM) Mobility/Transfers: PT Functional Mobility: 12/05/21: ambulation SBA 10+25ft WW; Bed mobility SBA (12/06/2021 12:46 PM) Cognition/Communication/Swallowing: DIRECTOR MARKETING COMMUNICATIONS Cognition: wfl (12/06/2021 12:46 PM) DIRECTOR MARKETING COMMUNICATIONS Communication: wfl (12/06/2021 12:46 PM) DIRECTOR MARKETING COMMUNICATIONS Swallowing: n/a (12/06/2021 12:46 PM) Conditions requiring acute rehab and risk for complications: Gait dysfunction - risk for falls and further injury, fracture Decreased mobility - Risk for Fall, skin breakdown, further injury, decompensation, muscle flaccidity Balance Issues- Risk for Fall, further injury Treatments needed to address conditions requiring acute rehab: Daily Face to Face oversight by a provider, Intense PT/OT/SP, Access to Annual Giving Director physicians, Frequent Neuro assessment, Cardiac Monitoring Alternative Level of Care considered and not appropriate due to: Consult physician oversight, DailyMD oversight, Diagnostics, Medication adjustment/oversight, Neurochecks Patient/Caregiver Goals: Patient and Family Goals: to return home at [facility] Cosigned by Joanne Reddy MD at 12/06/2021 12:56 PM CDT Associated attestation - Joanne Estes MD - 12/06/2021 12:56 PM CDT Rehab Referral Decision: Approved I have reviewed this patient Pre-admission Screening Information.The patient is medically stable toparticipate in an inpatient rehabilitation program. In my rehabilitation experience and professional judgement, this patient meets medical necessity criteria and requires an inpatient rehabilitation stay to manage current nursing and medical issues. The patient requires supervision by a rehabilitation physician at least three times a week. The patient requires the Interdisciplinary team approach of an inpatient rehabilitation program. This patient can reasonably expect to participate and benefit from the intensive Inpatient rehabilitation program offered at [facility] . documented in this encounter Plan of Treatment Not on file documented as of this encounter Visit Diagnoses Not on filedocumented in this encounter Care Teams Seismograph Chief Relationship Specialty Start Date End Date Kelby Lew DO [address] [place] [address] PCP - General Family Medicine 09/14/20 Jessi Orellana MD [address] [place] [address] Referring Physician Surgery 12/05/21 Dmitry Mendoza MD [address] [facility] [address] [place] [address] Consulting Physician Cardiovascular Disease 12/05/21 documented as of this encounter
--- OUTSIDE RECORDS SUMMARY | 2024-10-12 16:46 | XMS_ITS | Referral Summary ---
[facility] Organization [facility] Address [address] [place] [address] Care Team Providers Care Primer Supervisor Name Role Phone Kelby Lew Primary Care Provider Jessi Orellana MD Unavailable [phone] Dmitry Mendoza MD Unavailable [phone] Allergies Active Allergy Reactions Criticality Noted Date [...] Diverticulitis large intestine 11/17/2021 Paroxysmal atrial fibrillation (CMS/HCC) 022 Assessment & Plan (11/17/2021 3:48 PM CDT): Maintaining SR on IV amiodarone. Will transition to PO when GI tract allows. ACS (acute coronary syndrome) (CMS/HCC) 11/11/19 22 Coronary artery disease invo lving [place] coronary artery of [place] heart 09/03/2018 Assessment & Plan (11/17/2021 3:47 PM CDT): Recent non STEMI complicated by cardiogenic shock, salvaged with left main PCI. She remains on cangrelor given ongoing ileus following surgery. Continue cangrelor until GI tract is working. At that point, will need to load with plavix. 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 Never 11/12/2021 Do you belong to any clubs o r organizations such as tenriism groups, unions, fraternal or athletic groups, or [...] on file Sexual Orientation Not on file Last Filed Vital Signs Vital Sign Reading [...] 11/28/2023 9:12 AM CDT Plan of Treatment Not on file Medical Devices Implanted Type Area Typo Machine Operator Device Identifier Shelf Expiration Date Model / Serial / Lot [employer] 43790-79 Device Clsr Perclose Prostyle Sut-Mediatd Closure-Repair Sys - S0 - [id number] Implanted:Qty: 1 on 11/10/2021 by Dmitry Mendoza MD at [facility] Other - see comments Left: Femoral [employer] 08/31/2023 [id number] / [employer] [id number] Device Clsr Perclose Prostyle Sut-Mediatd Closure-Repair Sys - [id number] - [id number] Implanted:Qty: 1 on 11/10/2021 by Dmitry Mendoza MD at [facility] [employer] 08/31/[id number] / [employer] [id number] Device Clsr Perclose Prostyle Sut-Mediatd Closure-Repair Sys - [id number] - [id number] Implanted:Qty: 1 on 11/10/2021 by Dmitry Mendoza MD at [facility] [employer] 08/31/[id number] / Impella Cp Percutaneous Left Ventricular Assist Device [id number] - [id number] - [id number] Implanted:Qty: 1 on 11/10/2021 by Dmitry Mendoza MD at [facility] [employer] 07/01/2023 [id number] / [id number] / [id number] [employer] Garima [id number] Stent Drug Eluting S [facility] Mr [id number] - [id number] - [id number] Implanted:Qty: 1 on 11/10/2021 by Dmitry Mendoza MD at [facility] [employer] Graima 02/06/2022 [id number] / [id number] / [id number] Explanted Type Area Typo Machine Operator Device Identifier Shelf Expiration Date Model / Serial / Lot Gen[employer]ur[employer] [id number] Seprafilm 6x5in Barrier Adhesion Sterile Disposable Latex Free - [id number] Explanted:Qty: 1 on 11/14/2021 at [facility] [id number] / / Procedures Procedure Name Priority Date/Time [...] 11/28/2023 9:23 AM Admit Type: Outpatient Room: [facility] 6 Date of : 1955 Instrument Name: [id number] [...] ofthe bowel preparation was evaluated using the BBPS(Cartwright Bowel Preparation Scale) with scores of: RightColon [...] following this procedure please call my office [phone]). After hours and eveningsplease call [phone] and speak to the GI fellow oncall fellow. Please tell the fellow that Dr. Caceres did your procedure and that you were instructed to have the fellow call me or the physician covering for meto discuss the management of your condition. If youhave an urgent problem, [facility] and have the ER doctor call [...] Most Recently Relevant to Health Maintenance Insurance [facility] MEDICARE CIGNA IBEW Member Subscriber Plan / Payer (Ef fective 2018-Present) Name:Jorge Min Relation to Subscriber:Self Name:Jorge Min Payer ID:[id number] (NAIC) Group ID:[id number] Type:CIGNA HMO/PPO Address: [address] [place] [address] MEDICARE CIGNA Advance Directives For more information, please contact: [phone] * Full Code (Latest Code Status on [...] 8:30 AM 12/06/2021 7:19 PM Care Teams Primer Supervisor Relationship Specialty Start Date End Date Kelby Lew DO [address] [place] [address] PCP - General Family Medicine 09/14/20 Jessi Orellana MD [address] [place] [address] Referring Physician Surgery 12/05/21 Dmitry Mendoza MD [address] [facility] [address] [place] [address] Consulting Physician Cardiovascular Disease 12/05/21
--- OUTSIDE RECORDS SUMMARY | 2024-10-12 16:46 | XMS_ITS | Clinical Summary ---
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 Gender Identity Not on file Sexual Orientation Not on file Plan of Treatment Health Maintenance Due Date Last Done Comments Colorectal Cancer Screening Colonoscopy (10 Years) 1955 Hepatitis C 12/16/1975 DTaP, Tdap and Td Vaccines ( 1 - Tdap) 1976 Mammogram Screening 1997 Zoster Vaccines (1 of 2) 12/16/2007 Dexa Scan (General) 2022 Pneumococcal Vaccine: 65+ Ye ars (1 of 1 - PCV) 2022 COVID-19 Vaccine (2023-2 5 season) 2024 Influenza Adult (#1) 2024 RSV Immunization or 60+ Years (1 - 1-dose 75+ series) 2032 Meningococcal B Vaccine Aged Out No l onger eligible based on patient's age to complete this topic Meningococcal Vaccine Aged Out No selene devaughn eligible based on patient's age to complete this topic RSV Immunizations Under 20 Months Aged Out No longer eligible based on patient's age to complete this topic
[2024-10-12 16:54] LABS: Hematocrit 38.2 % (35.0-42.0); Hemoglobin 12.8 g/dL (11.7-13.8)
[2024-10-12 17:18] LABS: Anion Gap 7 mmol/L (4-12); Blood Urea Nitrogen 14 mg/dL (7-18); Calcium 8.8 mg/dL (8.5-10.1); Carbon Dioxide 28 mmol/L (21-32); Chloride 89 mmol/L (98-108); Estimated Glomerular Filt Rate 60; Glucose 168 mg/dL (70-99); Osmolality Calculated 262 mOsm/kg (285-295); Potassium 3.4 mmol/L (3.5-5.1); Sodium 124 mmol/L (136-145)
== END 2024-10-12 16:44 | disposition home or self-care (01) ==
LOC: CHSLAB 16:45
PROVIDERS: PCP Family Medicine; Visit Provider Anesthesiology
DX: I10 Essential (primary) hypertension (principal); Z93.3 Colostomy status; K42.9 Umbilical hernia without obstruction or gangrene; Z79.899 Other long term (current) drug therapy
CPT/HCPCS: 36415; 80048; 85014; 85018

== ENCOUNTER 2024-10-20 16:12 | Inpatient (IN) | payer MEDICARE, OTHER, SELFPAY ==
[2024-10-08 10:35] VITALS: BMI 27.1
--- NOTE | 2024-10-08 10:54 | PC.NURSE ---
Addendum entered by Acacia Yadav RN 10/08/24 11:08: PT did not have Amiodarone in her pills at home, although was on med list from Dr Fuentes at recent visit. Pt is calling them now after our call to verify she is to still be on that and get it refilled and take as prescribed MORGAN Original Note: Report to the Outpatient Waiting Room, entrance under the green pavilion [address], at time _0600am on date _10/20/24 . Planned Procedure Time: _0800am .? Time changes happen often and if your time is changed the preop area will call you the afternoon before. - You and your visitor will be asked to self-screen and do not enter if you have any COVID symptoms. Please call surgeon if you need to reschedule. - A mask is optional within the hospital at this time. Patients may have clear liquids (water, carbonated beverages, clear teas, apple juice) until 3 hours prior to surgery with a maximum of 20 ounces. - No food from midnight until time of surgery and no smoking, or chewing tobacco (or any form of nicotine). No chewing gum, candy or mints.(05:00am) Take only the following medications with a SIP of water on the morning of surgery: ____Metoprolol, Amiodarone, Sertaline DO NOT STOP ANY OF YOUR OTHER PRESCRIPTION MEDICATIONS PRIOR TO SURGERY EXCEPT THE FOLLOWING Hold all vitamins and supplements for 3 days per -Date to take last dose__10/16/24 Medications to discontinue per physician __HOLD Dabigatran and Cilostazol for 3 days prior to surgery per DR Fuentes/Cristinaera Date to take last dose__10/16/24 Please no make-up, nail kyrgyz, hairspray, perfume, deodorant, or body powder the day of surgery.? No jewelry (including any body piercings) or valuables the day of surgery, leave them at home.? Please take a shower or bath the night before, or the morning of, surgery with an antibacterial soap. Hibicleanse scrub by Naif. Ensure bundle and antibiotics per Dr Disla. ? Wear comfortable, loose fitting clothing.? - Jewelry must be removed prior to entering the operating room.? Rings and piercings that are not removed may be cut off. - The hospital will not accept responsibility for valuables.? - Please leave all valuables, including medications, at home the day of surgery. If you are going home after surgery, a licensed local company tanker driver must drive you home.? - NO public transportation without another adult if you receive anesthesia. - We recommend that an adult stay with you for 24 hours following discharge. - We also recommend that you do not drive, make important decision, drink alcoholic beverages, or take any drugs that were not prescribed by your health care provider for at least 24 hours after your discharge time. Follow any additional instructions given to you from your surgeon. Telephone instructions given to __Patient and asked if any additional questions and then verbalized understanding. Patient advised to call surgeon office or pre surgery nurse liaison [phone] if any additional questions.
--- NOTE | 2024-10-19 13:09 | P.PNAN_ITS ---
Anes - Initial Pre Proc Eval Procedure: Operation Date: 10/20/24 08:00 Proposed Procedures p Open Colostomy Closure Takedown - Devan Disla DO s Open Incarcerated Incisional Hernia Repair with Mesh, Possible Bilateral Component Separation - Devan Disla DO Date/Time: 10/19/24 13:09 Surgeon: Devan Disla DO Pre Op Diagnosis: Incarcerated Inc Hernia (10cm) Colostomy Status Patient Data Age: 68 Gender: F Height: 1.73 m Weight: 81 kg Allergies Allergy/AdvReac Type Severity Reaction Status Date / Time Penicillins Allergy Mild RASH Verified 10/20/24 07:02 CHILD NSAIDS (Non-Steroidal AdvReac Unknown Other Verified 10/20/24 07:02 Anti-Inflamma Home Medications ?Medication ?Instructions ?Recorded ?Confirmed ?Type aspirin 81 mg tablet,delayed 81 mg PO DAILY #90 tabs 09/28/19 10/20/24 Rx release (Adult Low Dose Aspirin) atorvastatin 40 mg tablet See Rx Instructions .Route 10/06/23 10/20/24 Rx .COMPLEX #90 tabs sertraline 50 mg tablet 50 mg PO DAILY #90 tabs 04/08/24 10/20/24 Rx dabigatran etexilate 150 mg capsule 150 mg PO BID #60 caps 05/19/24 10/20/24 Rx spironolactone 25 mg tablet 25 mg PO DAILY #90 tabs 08/09/24 10/20/24 Rx ciprofloxacin HCl 500 mg tablet See Rx Instructions .Route 09/23/24 10/20/24 Rx .COMPLEX #1 tablet metronidazole 500 mg tablet See Rx Instructions .Route 09/23/24 10/20/24 Rx .COMPLEX #3 tabs cilostazol 50 mg tablet See Rx Instructions .Route 10/05/24 10/20/24 Rx .COMPLEX #180 tabs amiodarone 200 mg tablet 200 mg PO DAILY #30 tabs 10/08/24 10/20/24 Rx metoprolol tartrate 25 mg tablet 25 mg PO DAILY 10/08/24 10/20/24 History multivitamin 1 tablet PO DAILY 10/08/24 10/20/24 History Patient hx anesthesia problems: none Family hx anesthesia problems: none Results Review: All pre-operative results and documents have been reviewed as part of the pre- operative evaluation. [facility] Past Medical History Medical History Hot flashes Anxiety HTN (hypertension) Constipation Health maintenance examination Insomnia Osteoporosis Hyperlipidemia CAD (coronary artery disease) Surgical History Surgical History Presence of left artificial hip joint History of cardiac catheterization (05/2018) Demonstrated 3 vessel coronary disease with high-grade stenosis right coronary artery, near total occlusion of mid LAD and 80% stenosis of obtuse marginal branch of circumflex performed at [facility] Status post total hip replacement, right (~11/08/21) Status post double vessel coronary artery bypass (05/28/18) Performed at [facility]: Internal mammary graft to LAD and saphenous vein graft to RPDA as well as extensive LAD endarterectomy complicated by perioperative atrial fibrillation Family History Family History Mother Family history of arthritis Family history of diabetes mellitus in first degree relative Father Carcinoma of colon Grandparent Family history of malignant neoplasm of breast Social History Social History Social History: Code status: Full code Surrogate decision maker: Smoking packs per day: 1 Smoking cigarettes per day: 20.0 Years smoked: 42 Smoking pack-years: 42.00 Smoking status: Former smoker Tobacco type: cigarettes Smoking end date: 05/24/18 Additional smoking assessment comments: Quit 05-24-2018. 42 pack-year history Alcohol intake: current Drinks per week: 12 Alcohol use details: 4/day Substance use: never Substance use type: does not use Do You Feel Safe in your Home?: Yes Lack of Transportation: No Lack of Food: Never True Current Housing: I Have Housing Concerned About Future Housing: No Difficulty Paying Gas/Electric Bills: Decline to Answer Difficulty Paying for Meds: Decline to Answer Currently Unemployed: No Education: Trade/Vocational Certificate Difficulty w/ Childcare or Family Care: No Living arrangements: with family Additional living arrangements comments: . 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 Informed Consent: The patient's anesthetic plan and its attendant risks and benefits were discussed with the patient/family/POA. Questions were solicited and answers provided to the satisfaction of the patient/family/POA.
[2024-10-20] VITALS (19 sets, daily range): BP systolic 115–159; BP diastolic 61–92; PULSE 70–97; RESP 13–18; TEMP 36.2–37.4; O2SAT 92–100; BMI 26.4
--- OUTSIDE RECORDS SUMMARY | 2024-10-20 00:47 | XMS_ITS | Clinical Summary ---
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
[2024-10-20] MEDS: LACTATED RINGERS 1,000 ML 30 ML IV CONT ×3 (06:35→13:42)
[2024-10-20 06:47] LABS: Sodium 138 mmol/L (137-145)
[2024-10-20] MEDS: ALVIMOPAN 12 MG CAPSULE PO (06:51)
[2024-10-20] MEDS: ACETAMINOPHEN 500 MG TABLET 1000 MG PO ×2 (06:51→23:30)
--- NOTE | 2024-10-20 07:17 | WPDHPUPDATE1 ---
History and Physical Update Update Date/Time: 10/20/24 07:17 History and Physical has been reviewed, including an updated exam of the patient. There are NO changes in the patient's condition. Risks, benefits, and alternatives have been discussed and questions answered. Patient agrees to proceed with procedure.
[2024-10-20] MEDS: ceFAZolin 2 GM/D5W 50 ML 2 GM/50 ML BAG IVPB (07:39)
[2024-10-20] MEDS: metroNIDAZOLE 500 MG/ISO 100ML 500 MG/100 ML BAG 100 MG IVPB (07:39)
[2024-10-20] MEDS: ceFAZolin SODIUM 1 GM VIAL 2 GM IV PUSH (12:31)
--- NOTE | 2024-10-20 13:55 | P.OP_ITS ---
Procedure Note - Detailed Date of Procedure 10/20/24 Pre-op Diagnosis Incarcerated Incisional Hernia, Colostomy Status Post-op Diagnosis Same (12 cm incarcerated incisional hernia, colostomy status) Procedure Performed 1. Takedown of colostomy with colorectal anastomosis (Lori's reversal) 2. Open 12 cm incarcerated incisional hernia repair with Phasix ST mesh 3. Left external oblique myofascial release (6 cm advancement myofascial flap) Surgeon Devan Disla, DO Anesthesia General Indications This is a 68-year-old woman who presented with a large incisional hernia after undergoing a Lori's procedure for perforated sigmoid colon on 11/14/2021. She initially a small hernia that she had noted, but over time this has become larger. She had some cardiac issues initially that were addressed which delayed any surgical treatment of the hernia. She then also was found to have a large cecal polyp and had to undergo endoscopic mucosal resection to adequately treat this. The hernia has gradually become larger and now appears to be incarcerated with transverse colon and small bowel. The ostomy has still been functioning but is in very close proximity to the hernia defect. Discussions were made with the patient that taking down the colostomy at the time of hernia repair would allow for adequate repair of the midline defect with generous overlap with a mesh. Discussions were made with the patient about treatment options and risks. Decision was made to proceed with open colostomy takedown and open incarcerated incisional hernia repair with mesh with possible bilateral component separation. Findings Open colostomy takedown was performed. Upon entering the abdomen, there were some omental and small-bowel adhesions up to the hernia defect. The scan down fairly easily with electrocautery and sharp dissection with curved Metzenbaum scissors. There were also many small bowel adhesions down into the pelvis and along the left lower quadrant. These also were taken down carefully with sharp dissection with Metzenbaum scissors. Care was taken to not injure the bowel throughout this dissection. I eventually was able to take down all the omental and small-bowel adhesions and reflect the small bowel out of the pelvis. I then ran the entire small bowel from the ligament of Treitz to the ileocecal valve to ensure that there were no other significant adhesions or other signs of bowel injury. Bowel all appeared healthy and viable. Colostomy takedown was then performed and a 28 mm EEA stapler was used for anastomosis. I did resect the distal end of the rectal stump to adequately clear healthy rectal tissue at the location for the anastomosis. End to end descending colon to rectum anastomosis was performed. Leak test was then performed and there was no evidence of air bubbles leaking from the anastomosis. I then moved my attention to the hernia defect. The hernia sac was carefully dissected free from the surrounding subcutaneous attachments and was excised at the edge of the linea alba. The hernia defect measured about 10 cm wide by 12 cm vertically. When trying to pull the fascia together in the midline it did appear to be under significant tension. There were already fairly large subcutaneous flaps created from excising the hernia sac, therefore I continued the dissection along the left lateral abdomen out to the anterior axillary line and then performed an external oblique release to gain adequate mobilization of the midline fascia. After performing this, I did gain about 6 cm of mobilization towards midline. Did not feel it would be necessary to perform a release on the right side. The fascia appeared to be coming together with minimal tension at this point. I then placed a 30 cm x [address] mesh with open positioning system within the abdominal cavity. 0 PDS trans fascial sutures were placed at 8 locations around the perimeter of the mesh. An absorbable Opti Fix Tacker was then used to secure the mesh to the abdominal wall in between each of the sutures. The fascia was then closed over the mesh using 1. PDS running absorbable suture. Two 15 round Danny drains were placed within the subcutaneous space. Description of Procedure Procedure as well as risks, benefits, and alternatives were discussed with the patient. Written consent was obtained and placed in chart prior to procedure. Patient was brought back to surgical suite. She was placed supine on operating table. Time-out was done to confirm patient and procedure. She was then intubated by the anesthesia department. She was then repositioned into modified lithotomy position. Her rectum and perineal area was prepped and draped in sterile fashion using Betadine prep. Her abdomen was prepped and draped in sterile fashion using chlorhexidine prep. A 25 cm vertical midline incision was made using a 10 blade scalpel. Electrocautery was used for hemostasis and for dissection through the subcutaneous tissue. The hernia sac was encountered in very close proximity to the skin around the umbilicus. I entered into the hernia sac using electrocautery and was able to ensure that there was no bowel directly below this. I then continued the dissection through the subcutaneous tissue into the linea alba was met above and below the hernia defect. The linea alba was incised for about 4 cm above and below the hernia defect to open up the fascia wide enough to adequately visualize around the abdominal cavity. I then continued to take down the omental adhesions to the hernia sac and to the abdominal wall using electrocautery. There were some small bowel adhesions and transverse colon adhesions up into the hernia defect. These were taken down using curved Metzenbaum scissors to adequately reduce the colon and small bowel. I then continued to take down the omental adhesions until I was able to reflect the omentum cephalad into the upper abdomen. I then identified many adhesions down into the pelvis. These adhesions were carefully taken down using sharp dissection with Metzenbaum scissors. There were multiple loops of small bowel adherent to the left adnexa, rectal stump, and peritoneum within the pelvis. All of these adhesions were carefully taken down in order to reflect the small bowel out of the pelvis. Once all of the adhesions were taken down I was then able to run the entire small bowel from ligament of Treitz to the ileocecal valve. No other significant adhesions existed. There did not appear to be any evidence of enterotomies or significant injuries to the bowel wall. There were 2 small superficial serosal tears that were reinforced using 3-0 silk seromuscular imbricating sutures. I then took down any further adhesions along the left lower quadrant and around where the descending colon was coming up to the colostomy site. These were taken down using blunt dissection, electrocautery, and sharp dissection with Metzenbaum scissors. Once all the adhesions were taken down from the inside and I was able to encircle the descending colon coming up to the posterior rectus sheath, I then moved my attention to taken down the colostomy. A transverse elliptical incision was then made around the colostomy using a 15 blade scalpel. Electrocautery was used for hemostasis and for dissection through the subcutaneous tissue around the colostomy. I carefully freed up all the subcutaneous attachments down to the level of the fascia. The colostomy was then freed up around the anterior rectus sheath and then I was able to dissect all the way through to the peritoneum into the abdominal cavity using electrocautery. This freed up the colostomy completely. I then identified a location about 3 cm proximal to the skin on the descending colon that appeared to be adequate for anastomosis. The colon was transected at this point using electrocautery and the mesocolon attachments were also taken down using electrocautery. EEA sizers were then used and a 28 mm EEA stapler was chosen to perform the anastomosis. The EEA anvil was placed within the descending colon and a 2-0 Prolene pursestring suture was placed around the descending colon to secure at around the base of the anvil. The descending colon was then dropped down through the ostomy site into the abdominal cavity. An extra-large Isaiah wound protector was then placed and the bowel was packed out of the pelvis to adequately visualize the rectal stump. The previously placed Prolene suture was visible at the end of the rectal stump. The rectal stump appeared somewhat contracted and scarred at this previous location, therefore I chose to dissect proximally on the rectal stump to identify a healthy location for anastomosis. Electrocautery was used to carefully mobilize the mesorectum proximally. I then created a window in the mesorectum using blunt dissection and electrocautery and then took down the mesorectum the rest of the way using LigaSure bipolar cautery. A blue load contour stapler was then advanced across the rectal stump about 3 cm proximal to the previous staple line and this was clamped and fired. Staple line appeared secure and the previous rectal stump was sent to the lab for pathology. I then advanced the EEA sizers up the rectum and noted an area of stenosis about 2 cm distal to my new staple line. I could not get the stapler to advance past this area, therefore I chose to dissect a little further distal on the rectum and resect 1 more small segment of the rectum. Another contour stapler was advanced across the rectum just distal to this area of stenosis and the stapler was clamped and fired. The remaining mesorectal attachments were taken down using LigaSure bipolar cautery. I then was able to advance the EEA sizers up to the staple line without any difficulty and then the 28 mm EEA stapler advanced all the way up to the staple line. The pin on the stapler was opened through the midportion of the staple line and the anvil on the descending colon was then attached to the pin. I carefully ensured that the descending colon was not twisted along its path. The descending colon also came down into the pelvis very easily without any tension. I then ensured that no other structures were between the 2 ends of the bowel and the stapler was then carefully closed. Stapler was closed completely and then I inspected to ensure that no other tissue was within the stapler. The stapler was then fired to create our anastomosis. The stapler was then carefully removed and the anastomotic rings were inspected and appeared circumferential. The pelvis was then filled with sterile saline and the descending colon was pinched closed proximal to the anastomosis. A rigid proctoscope was then inserted into the rectum and air was insufflated through the proctoscope to dilate the anastomosis. No air bubbles were seen leaking from the anastomosis. The rigid proctoscope was then removed. I then changed gloves and continued with the hernia repair portion of the procedure. The Isaiah wound protector was now removed and all lap sponges were removed. The hernia sac was identified and carefully dissected free on each side using electrocautery. The hernia sac was dissected all the way to the level of the fascia and then excised just medial to the rectus muscle. The hernia sac was fairly large on each side which created a fairly wide subcutaneous flap already. I then inspected the size of the hernia. The hernia defect measured about 10 cm wide about 12 cm in vertical dimension. The fascial edges were difficult to bring together without significant tension. I then continued a subcutaneous dissection on top of the anterior fascia on the left side until like was lateral to the rectus abdominis muscle. I then identified the external oblique aponeuroses in the anterior axillary line. The external oblique aponeuroses was then incised using electrocautery. The fascia was carefully dissected off of the internal oblique muscle just deep to it. This allowed a mobilization of about 6 cm towards midline along the left side. Once this was performed I then was able to bring the fascia together in midline with minimal tension. I then cleared the fascia along the inferior and superior midline to adequately perform trans fascial sutures. This was performed using electrocautery just anterior to the fascia. Then also ensured that circumferentially there was wide enough subcutaneous dissection to allow for trans fascial sutures to be placed laterally. I then chose a 30 cm x [address] mesh. The mesh with open positioning system was then placed within the abdominal cavity and centered on the hernia defect. 0 PDS U-stitch trans fascial sutures were then placed at the superior and inferior margins. I then pulled tension on the fascia towards midline and placed the lateral 0 PDS U- stitch trans fascial sutures. Three sutures were placed on each side along the lateral edges of the mesh for a total of 8 trans fascial sutures. The mesh appeared to be well approximated to the fascial edges. And Opti Fix absorbable Tacker was then used to approximate the mesh to the fascia between each of the trans fascial sutures. This was done circumferentially around the perimeter of the mesh to ensure that there were no gaps where bowel could protrude up through. The mesh now appeared adequately secured to the abdominal wall and was centered on the hernia defect. The open positioning system was then removed and discarded. The fascial opening on the left rectus muscle from the previous ostomy was then closed using 0 PDS [id number] sutures. The fascia was then reapproximated in the midline with hernia defect closure using 1 PDS running absorbable suture starting at each end and meeting in the middle. The repair was inspected and appeared secure. I then placed a 15 round Danny drain the left lower quadrant and oriented this along the left subcutaneous space. I also placed a 15 round Danny drain in the right lower quadrant and oriented this along the right subcutaneous space. Shannon's fascia was then reapproximated using 3-0 Vicryl simple interrupted sutures. The umbilical skin appeared very thinned out and was at risk of ischemia due to the extensive subcutaneous dissection. I chose to excise the umbilical skin with an elliptical incision using a 15 blade scalpel. The midline incision was then closed using a skin stapler and the ostomy incision was also closed using a skin stapler. Telfa, 4 x 4 gauze, ABD pads, drain sponge, and Medipore tape were then applied. The patient was then awakened from anesthesia, extubated, and transferred to recovery. Implants Phasix ST mesh with open positioning system 25 cm x 30 cm Estimated Blood Loss 200 Drains Yes (15 round Danny drain x2) Pathology Yes (Descending colostomy, rectal stump, hernia sac) Complications No immediate complications Condition Stable Disposition Floor [facility] Billing Surgery - Charge Forward: Surgery Billing
[2024-10-20] MEDS: fentaNYL CITRATE INJ (*CRX) 100 MCG/2 ML VIAL 25 MCG IV PUSH (14:06)
--- NOTE | 2024-10-20 16:20 | PC.NURSE ---
This patient, Jorge Min, was admitted to [facility] Surg Room 314-02. Patient/family oriented to hospital policies and general routines including ID bracelet, bed and alarms, visiting hours, pain management, procedures, bathroom and other care routines, personal items, smoking policy, room service/diet, and visiting hours. Information on how to activate the Rapid Response Team has been discussed. Patient/Family are encouraged to report perceived risks to care and to ask questions if they do not understand what they are told or what they should do.
[2024-10-20] MEDS: LACTATED RINGERS 1,000 ML 100 ML IV CONT (16:48)
[2024-10-20] MEDS: ceFAZolin 1 GM/NS 50 ML 1 GM/50 ML BAG IVPB (16:48)
[2024-10-20] MEDS: ONDANSETRON INJ 4 MG/2 ML VIAL IV PUSH (16:48)
[2024-10-20] MEDS: HYDROmorphone HCL INJ (*CRX) 1 MG/ML SYR IV PUSH ×2 (16:55→22:42)
[2024-10-20] MEDS: oxyCODONE HCL (*CRX) 5 MG TAB IR 10 MG PO (21:09)
[2024-10-21] VITALS (13 sets, daily range): BP systolic 132–152; BP diastolic 66–78; PULSE 88–110; RESP 16–20; TEMP 36.2–37.3; O2SAT 87–94
[2024-10-21] MEDS: ceFAZolin 1 GM/NS 50 ML 1 GM/50 ML BAG IVPB (00:26)
[2024-10-21] MEDS: oxyCODONE HCL (*CRX) 5 MG TAB IR PO ×2 (04:09→09:48)
[2024-10-21] MEDS: LACTATED RINGERS 1,000 ML 100 ML IV CONT ×3 (04:10→22:46)
[2024-10-21] MEDS: ACETAMINOPHEN 500 MG TABLET 1000 MG PO ×2 (05:55→12:31)
[2024-10-21 07:59] LABS: Hematocrit 43.3 % (37.0-47.0); Hemoglobin 13.9 g/dL (12.0-15.0); Mean Corpuscular HGB Conc 32.1 g/dl (32-36); Mean Corpuscular Hemoglobin 32.6 pg (26-34); Mean Corpuscular Volume 101.4 fl (80-100); Mean Platelet Volume 9.2 fl (7.4-10.4); Platelet Count Result 343 k/mm3 (150-375); Red Blood Count 4.27 M/mm3 (4.2-5.4); Red Cell Distribution Width 12.5 % (11.5-14.5); White Blood Count 17.7 K/mm3 (4.5-10.0)
[2024-10-21 08:33] LABS: Anion Gap 12 mmol/L (4-12); Blood Urea Nitrogen 19 mg/dL (7-17); Carbon Dioxide 24 mmol/L (22-30); Chloride 104 mmol/L (98-107); Estimated CRCL calculation 43 ml/min; Estimated Glomerular Filt Rate 47; Glucose 183 mg/dL (65-110); Potassium 5.5 mmol/L (3.4-5.0); Sodium 140 mmol/L (137-145)
[2024-10-21] MEDS: ASPIRIN 81 MG ENTERIC TABLET PO (09:48)
[2024-10-21] MEDS: SPIRONOLACTONE 25 MG TABLET PO (09:48)
[2024-10-21] MEDS: ENOXAPARIN 40 MG/0.4 ML SYRINGE SUB-Q (09:48)
[2024-10-21] MEDS: METOPROLOL TARTRATE 25 MG TABLET PO (09:49)
[2024-10-21] MEDS: SERTRALINE HCL 50 MG TABLET PO (09:49)
--- NOTE | 2024-10-21 14:17 | WPDANESPN ---
Anes - Prog Note Post-Op Date/Time: 10/21/24 14:17 Vital Signs: Last Vital Signs Temp 37.3 C 10/21/24 04:11 Pulse 100 10/21/24 09:49 Resp 16 10/21/24 04:11 BP 144/78 H 10/21/24 04:11 Pulse Ox 93 10/21/24 04:11 O2 Del Method Room Air 10/21/24 09:48 O2 Flow Rate 2 10/20/24 16:30 Pain Score (VAS): 3 I/O: Intake & Output 10/20/24 10/21/24 10/21/24 23:59 07:59 15:59 Intake Total 50 1550 1140 Output Total 150 Balance 50 1400 1140 Laboratory Tests 10/21/24 07:04 10/21/24 07:04 10/21/24 07:04 WBC 17.7 H RBC 4.27 Hgb 13.9 D Hct 43.3 MCV 101.4 H MCH 32.6 MCHC 32.1 RDW 12.5 Plt Count 343 MPV 9.2 Sodium 140 Potassium 5.5 H Chloride 104 Carbon Dioxide 24 Anion Gap 12 BUN 19 H Creatinine 1.15 H Estim Creat Clear Calc 43 Estimated GFR 47 L Glucose 183 H Calcium 9.0 Patient Feedback: Patient satisfied with anesthetic care.
--- NOTE | 2024-10-21 15:32 | P.PNGS_ITS ---
Progress Note: A&P Assessment and Plan (1) Incarcerated incisional hernia: Code(s): K43.0 - Incisional hernia with obstruction, without gangrene Status: Acute Assessment and Plan: * Will switch to Morphine [employer]GER for better pain control * Continue clear liquids * Continue Deleon until mobilizing more (2) History of creation of ostomy: Code(s): Z93.9 - Artificial opening status, unspecified Status: Acute Assessment and Plan: * S/p takedown of colostomy. Await return of bowel function. Plan I have discussed the patient's case and plan of care with Dr. Disla. Subjective Subjective Date/Time Seen: 10/21/24 15:32 Post Op day: 1 (Takedown of colostomy with colorectal anastomosis , Open 12 cm incarcerated incisional hernia repair with Phasix ST mesh, Left external oblique myofascial release ) Patient reports: tolerating liquids well, no flatus, no bowel movement and afebrile Interval history: Patient having expected postoperative pain in the central abdomen at her incision. She feels it is not being controlled with current analgesics. No nausea or vomiting. Exam Const: General: comfortable and no acute distress GI: Inspection: non-distended, incision (dressing dry and intact) and other (LLQ JIM drain with dark bloody drainage, RLQ JIM with no drainage) GI Palp: Yes Soft to palpation and Yes Tenderness to palpation present (GI) Auscultation: Hypoactive bowel sounds present Objective Data Vital Signs Vital Signs: Vital Signs - 24 hr 10/20/24 15:45 10/20/24 16:00 10/20/24 16:25 Temperature 97.2 F L Pulse Rate 82 82 78 Respiratory Rate 16 14 18 Blood Pressure 139/70 143/72 H 115/71 Pulse Oximetry 99 99 100 Oxygen Delivery Nasal Cannula Nasal Cannula Oxygen Flow Rate 3 3 10/20/24 16:30 10/20/24 16:40 10/20/24 17:10 Temperature 98.7 F 97.8 F Pulse Rate 78 86 Respiratory Rate 18 18 Blood Pressure 128/61 133/76 Pulse Oximetry 98 98 97 Oxygen Delivery Nasal Cannula Oxygen Flow Rate 2 10/20/24 18:10 10/20/24 20:40 10/20/24 22:00 Temperature 97.5 F L 99.4 F Pulse Rate 97 94 Respiratory Rate 16 16 Blood Pressure 142/69 H 126/67 Pulse Oximetry 98 99 Oxygen Delivery Room Air Oxygen Flow Rate 10/21/24 00:15 10/21/24 04:11 10/21/24 09:48 Temperature 99.2 F Pulse Rate 110 H 104 H Respiratory Rate 16 Blood Pressure 132/73 144/78 H Pulse Oximetry 93 Oxygen Delivery Room Air Oxygen Flow Rate 10/21/24 09:49 Temperature Pulse Rate 100 Respiratory Rate Blood Pressure Pulse Oximetry Oxygen Delivery Oxygen Flow Rate Intake/Output Intake/Output: Intake & Output 10/18/24 10/19/24 10/20/24 10/21/24 23:59 23:59 23:59 23:59 Intake Total 600 2690 Output Total 75 150 Balance 525 2540 Meds/Results Medications: Active Medications Generic Name Dose Route Start Last Admin Trade Name Freq PRN Reason Stop Dose Admin Acetaminophen 1,000 mg 10/20/24 18:00 10/21/24 12:31 Acetaminophen 500 Mg Tablet PO 1,000 mg Q6HR RASHID Administration Alvimopan 12 mg 10/21/24 21:00 Alvimopan 12 Mg Capsule PO 10/28/24 20:59 Q12HR [facility] Amiodarone HCl 200 mg 10/22/24 09:00 Amiodarone Hcl 200 Mg Tablet PO DAILY [facility] Aspirin 81 mg 10/21/24 09:00 10/21/24 09:48 Aspirin 81 Mg Enteric Tablet PO 81 mg DAILY RASHID Administration Atorvastatin Calcium 40 mg 10/20/24 18:00 10/20/24 18:05 Atorvastatin 40 Mg Tablet PO Not Given QPM [facility] Enoxaparin Sodium 40 mg 10/21/24 09:00 10/21/24 09:48 Enoxaparin 40 Mg/0.4 Ml Syringe SUB-Q 40 mg DAILY RASHID Administration Lactated Ringer's 1,000 mls @ 100 mls/hr 10/20/24 16:12 10/21/24 12:34 Lr - Lactated Ringers Iv IV CONT 100 mls/hr .Q10H RASHID Administration Morphine Sulfate 30 mg in 30 mls @ 0 mls/hr 10/21/24 14:19 Morphine Sulfate Seaman IV CONT PRN PRN [employer] Management Protocol 0 MG/HR Metoprolol Tartrate 25 mg 10/21/24 09:00 10/21/24 09:49 Metoprolol Tartrate 25 Mg Tablet PO 25 mg DAILY RASHID Administration Naloxone HCl 0.1 mg 10/20/24 16:12 Naloxone Hcl 0.4 Mg/Ml Vial IV PUSH Q2M PRN Opiate Reversal Ondansetron HCl 4 mg 10/20/24 16:12 10/20/24 16:48 Ondansetron Inj 4 Mg/2 Ml Vial IV PUSH 4 mg Q4H PRN Administration Nausea And Vomiting Sertraline HCl 50 mg 10/21/24 09:00 10/21/24 09:49 Sertraline Hcl 50 Mg Tablet PO 50 mg DAILY RASHID Administration Spironolactone 25 mg 10/21/24 09:00 10/21/24 09:48 Spironolactone 25 Mg Tablet PO 25 mg DAILY RASHID Administration Labs Labs: Laboratory Results - last 24 hr 10/21/24 07:04 WBC 17.7 H RBC 4.27 Hgb 13.9 D Hct 43.3 MCV 101.4 H MCH 32.6 MCHC 32.1 RDW 12.5 Plt Count 343 MPV 9.2 Sodium 140 Potassium 5.5 H Chloride 104 Carbon Dioxide 24 Anion Gap 12 BUN 19 H Creatinine 1.15 H Estim Creat Clear Calc 43 Estimated GFR 47 L Glucose 183 H Calcium 9.0
[2024-10-21] MEDS: MORPHINE SULFATE PCA (*CRX) 30 MG/30 ML SYR IV CONT (16:55)
[2024-10-21] MEDS: ALVIMOPAN 12 MG CAPSULE PO (20:46)
[2024-10-22] VITALS (11 sets, daily range): BP systolic 100–140; BP diastolic 55–68; PULSE 72–150; RESP 16–19; TEMP 36.2–36.6; O2SAT 93–100
[2024-10-22] MEDS: ACETAMINOPHEN 500 MG TABLET 1000 MG PO ×4 (05:19→23:20)
[2024-10-22] MEDS: METOPROLOL TARTRATE 25 MG TABLET PO ×2 (05:19→09:05)
[2024-10-22 07:38] LABS: Hematocrit 34.2 % (37.0-47.0); Hemoglobin 11.1 g/dL (12.0-15.0); Mean Corpuscular HGB Conc 32.5 g/dl (32-36); Mean Corpuscular Hemoglobin 32.3 pg (26-34); Mean Corpuscular Volume 99.4 fl (80-100); Mean Platelet Volume 8.9 fl (7.4-10.4); Platelet Count Result 249 k/mm3 (150-375); Red Blood Count 3.44 M/mm3 (4.2-5.4); Red Cell Distribution Width 12.4 % (11.5-14.5); White Blood Count 14.5 K/mm3 (4.5-10.0)
[2024-10-22 07:53] LABS: Anion Gap 4 mmol/L (4-12); Blood Urea Nitrogen 14 mg/dL (7-17); Calcium 8.9 mg/dL (8.4-10.2); Carbon Dioxide 30 mmol/L (22-30); Chloride 104 mmol/L (98-107); Estimated CRCL calculation 56 ml/min; Estimated Glomerular Filt Rate > 60; Glucose 131 mg/dL (65-110); Sodium 138 mmol/L (137-145)
[2024-10-22] MEDS: AMIODARONE HCL 200 MG TABLET PO (09:05)
[2024-10-22] MEDS: SERTRALINE HCL 50 MG TABLET PO (09:05)
[2024-10-22] MEDS: ASPIRIN 81 MG ENTERIC TABLET PO (09:05)
[2024-10-22] MEDS: ENOXAPARIN 40 MG/0.4 ML SYRINGE SUB-Q (09:06)
[2024-10-22] MEDS: ALVIMOPAN 12 MG CAPSULE PO ×2 (09:06→20:57)
[2024-10-22] MEDS: LACTATED RINGERS 1,000 ML 100 ML IV CONT (09:18)
--- NOTE | 2024-10-22 11:40 | ECG_ITS ---
Test Date: 2024-10-22 12:10:11 Measurements Intervals [place] Rate: 84 P: 47 NV: 149 QRS: 12 QRSD: 141 T: 13 QT: 403 QTc: 477 Interpretive Statements SINUS RHYTHM RIGHT BUNDLE BRANCH BLOCK CONSIDER INFERIOR INFARCT, AGE INDETERMINATE BASELINE ARTIFACT- I, II, III, AVL, V4-V6 ABNORMAL ECG Compared to ECG 09/21/2024 13:37:35 No significant changes Electronically Signed On 10-22-2024 13:18:25 LAYOUT TECHNICIAN by Curtis Fuentes D.O.
--- NOTE | 2024-10-22 11:42 | PM.PNGS ---
Progress Note: A&P Assessment and Plan (1) Incarcerated incisional hernia: Code(s): K43.0 - Incisional hernia with obstruction, without gangrene Status: Acute Assessment and Plan: Continue [employer] today, then could transition to oral pain meds tomorrow. Up to chair and increase activity as tolerated. Monitor JIM drain output. (2) History of creation of ostomy: Code(s): Z93.9 - Artificial opening status, unspecified Status: Acute Assessment and Plan: S/p takedown of colostomy. Await return of bowel function. Subjective Subjective Date/Time Seen: 10/22/24 11:42 Interval history: Pain better controlled with [employer] today. Tachycardic this AM. No chest pain or SOB. Not much activity yet. No flatus or BM. Exam Resp: Effort & Inspection: normal respiratory effort Auscultation: clear to auscultation bilaterally GI: Inspection: non-distended, incision (intact with jory) and other (JIM's serosanguinous) GI Palp: Yes Soft to palpation, Yes Tenderness to palpation present (GI) (incisional), No Guarding due to palpation present (GI) and No Rebound tenderness present Auscultation: Hypoactive bowel sounds present Objective Data Vital Signs Vital Signs: Vital Signs - 24 hr 10/21/24 12:00 10/21/24 16:55 10/21/24 17:54 Temperature 97.8 F Pulse Rate 100 Respiratory Rate 20 18 Blood Pressure 141/66 H Pulse Oximetry 92 87 L Oxygen Delivery Room Air Oxygen Flow Rate 10/21/24 17:55 10/21/24 17:55 10/21/24 17:57 Temperature 98.5 F Pulse Rate 98 Respiratory Rate 16 20 Blood Pressure 142/67 H Pulse Oximetry 93 93 92 Oxygen Delivery Nasal Cannula Oxygen Flow Rate 2 10/21/24 18:51 10/21/24 18:55 10/21/24 20:33 Temperature 97.2 F L Pulse Rate 88 90 Respiratory Rate 18 18 16 Blood Pressure 152/71 H Pulse Oximetry 93 93 93 Oxygen Delivery Nasal Cannula Oxygen Flow Rate 2 10/21/24 20:40 10/21/24 23:23 10/22/24 03:05 Temperature 98.4 F Pulse Rate 90 93 94 Respiratory Rate 16 16 19 Blood Pressure 133/71 Pulse Oximetry 93 94 94 Oxygen Delivery Nasal Cannula Nasal Cannula Oxygen Flow Rate 2 2 10/22/24 05:19 10/22/24 05:19 10/22/24 08:00 Temperature 97.3 F L 97.1 F L Pulse Rate 97 94 112 H Respiratory Rate 18 18 Blood Pressure 140/66 118/60 Pulse Oximetry 93 95 Oxygen Delivery Oxygen Flow Rate 10/22/24 09:05 10/22/24 09:05 Temperature Pulse Rate 150 H 112 H Respiratory Rate Blood Pressure Pulse Oximetry Oxygen Delivery Oxygen Flow Rate Intake/Output Intake/Output: Intake & Output 10/19/24 10/20/24 10/21/24 10/22/24 23:59 23:59 23:59 23:59 Intake Total 600 4180 1550 Output Total 75 1000 430 Balance 525 3180 1120 Meds/Results Medications: Active Medications Generic Name Dose Route Start Last Admin Trade Name Freq PRN Reason Stop Dose Admin Acetaminophen 1,000 mg 10/20/24 18:00 10/22/24 05:19 Acetaminophen 500 Mg Tablet PO 1,000 mg Q6HR RASHID Administration Alvimopan 12 mg 10/21/24 21:00 10/22/24 09:06 Alvimopan 12 Mg Capsule PO 10/28/24 20:59 12 mg Q12HR RASHID Administration Amiodarone HCl 200 mg 10/22/24 09:00 10/22/24 09:05 Amiodarone Hcl 200 Mg Tablet PO 200 mg DAILY RASHID Administration Aspirin 81 mg 10/21/24 09:00 10/22/24 09:05 Aspirin 81 Mg Enteric Tablet PO 81 mg DAILY [facility] Administration Atorvastatin Calcium 40 mg 10/20/24 18:00 10/21/24 18:36 Atorvastatin 40 Mg Tablet PO Not Given QPM RASHID Enoxaparin Sodium 40 mg 10/21/24 09:00 10/22/24 09:06 Enoxaparin 40 Mg/0.4 Ml Syringe SUB-Q 40 mg DAILY RASHID Administration Lactated Ringer's 1,000 mls @ 100 mls/hr 10/20/24 16:12 10/22/24 09:18 Lr - Lactated Ringers Iv IV CONT 100 mls/hr .Q10H RASHID Administration Morphine Sulfate 30 mg in 30 mls @ 0 mls/hr 10/21/24 14:19 10/21/24 18:55 Morphine Sulfate Director Of It Operations IV CONT 0 mg/hr PRN PRN 0 mls/hr [employer] Management Titration Protocol 0 MG/HR Metoprolol Tartrate 25 mg 10/21/24 09:00 10/22/24 09:05 Metoprolol Tartrate 25 Mg Tablet PO 25 mg DAILY RASHID Administration Naloxone HCl 0.1 mg 10/20/24 16:12 Naloxone Hcl 0.4 Mg/Ml Vial IV PUSH Q2M PRN Opiate Reversal Ondansetron HCl 4 mg 10/20/24 16:12 10/20/24 16:48 Ondansetron Inj 4 Mg/2 Ml Vial IV PUSH 4 mg Q4H PRN Administration Nausea And Vomiting Sertraline HCl 50 mg 10/21/24 09:00 10/22/24 09:05 Sertraline Hcl 50 Mg Tablet PO 50 mg DAILY RASHID Administration Spironolactone 25 mg 10/21/24 09:00 10/21/24 09:48 Spironolactone 25 Mg Tablet PO 25 mg DAILY RASHID Administration Labs Labs: Laboratory Results - last 24 hr 10/22/24 07:31 WBC 14.5 H RBC 3.44 L Hgb 11.1 L Hct 34.2 L MCV 99.4 MCH 32.3 MCHC 32.5 RDW 12.4 Plt Count 249 MPV 8.9 Sodium 138 Potassium 4.0 Chloride 104 Carbon Dioxide 30 Anion Gap 4 BUN 14 D Creatinine 0.87 Estim Creat Clear Calc 56 Estimated GFR > 60 Glucose 131 H Calcium 8.9
[2024-10-22] MEDS: ATORVASTATIN 40 MG TABLET PO (17:50)
[2024-10-22] MEDS: MORPHINE SULFATE PCA (*CRX) 30 MG/30 ML SYR IV CONT (18:32)
[2024-10-23 03:15] VITALS: BP 106/62; PULSE 78; RESP 20; TEMP 36.3; O2SAT 94
[2024-10-23] MEDS: ACETAMINOPHEN 500 MG TABLET 1000 MG PO ×4 (05:25→23:20)
[2024-10-23 07:20] LABS: Hematocrit 32.8 % (37.0-47.0); Hemoglobin 10.5 g/dL (12.0-15.0); Mean Corpuscular Hemoglobin 31.9 pg (26-34); Mean Corpuscular Volume 99.7 fl (80-100); Mean Platelet Volume 9.1 fl (7.4-10.4); Platelet Count Result 264 k/mm3 (150-375); Red Blood Count 3.29 M/mm3 (4.2-5.4); Red Cell Distribution Width 12.5 % (11.5-14.5); White Blood Count 14.4 K/mm3 (4.5-10.0)
[2024-10-23 07:35] LABS: Anion Gap 4 mmol/L (4-12); Blood Urea Nitrogen 16 mg/dL (7-17); Calcium 8.9 mg/dL (8.4-10.2); Carbon Dioxide 31 mmol/L (22-30); Chloride 104 mmol/L (98-107); Estimated CRCL calculation 65 ml/min; Estimated Glomerular Filt Rate > 60; Glucose 111 mg/dL (65-110); Potassium 3.7 mmol/L (3.4-5.0); Sodium 139 mmol/L (137-145)
[2024-10-23 08:00] VITALS: BP 125/72; PULSE 77; RESP 16; TEMP 36.3; O2SAT 94
[2024-10-23] MEDS: SERTRALINE HCL 50 MG TABLET PO (08:30)
[2024-10-23] MEDS: ASPIRIN 81 MG ENTERIC TABLET PO (08:30)
[2024-10-23] MEDS: ALVIMOPAN 12 MG CAPSULE PO ×2 (08:30→20:47)
[2024-10-23] MEDS: AMIODARONE HCL 200 MG TABLET PO (08:30)
[2024-10-23] MEDS: METOPROLOL TARTRATE 25 MG TABLET PO (08:31)
[2024-10-23] MEDS: ATORVASTATIN 40 MG TABLET PO (08:40)
[2024-10-23] MEDS: ENOXAPARIN 40 MG/0.4 ML SYRINGE SUB-Q (08:40)
--- NOTE | 2024-10-23 11:07 | PM.PNGS ---
Progress Note: A&P Assessment and Plan (1) Incarcerated incisional hernia: Code(s): K43.0 - Incisional hernia with obstruction, without gangrene Status: Acute Assessment and Plan: s/p repair c mesh, dc [employer] and transition to po analgesia, encourage OOB/IS Subjective Subjective Date/Time Seen: 10/23/24 11:07 Interval history: feels ok, pretty tired, pain controlled c minimal [employer]ITCH usage Review of Systems Review of Systems: All systems reviewed & are unremarkable except as noted in HPI and below Exam Const: General: cooperative, comfortable and no acute distress Resp: Auscultation: clear to auscultation bilaterally Cardio: Rate: regular rate Rhythm: regular rhythm GI: Inspection: normal to inspection, distended and incision GI Palp: Yes abdominal tenderness, Yes Soft to palpation, Yes Tenderness to palpation present (GI), No Guarding due to palpation present (GI) and No Rigid due to palpation Objective Data Vital Signs Vital Signs: Vital Signs - 24 hr 10/22/24 12:00 10/22/24 12:00 10/22/24 14:00 Temperature 36.3 C L Pulse Rate 110 H Respiratory Rate 18 16 16 Blood Pressure 113/68 Pulse Oximetry 94 95 95 Oxygen Delivery Oxygen Flow Rate 10/22/24 16:00 10/22/24 16:00 10/22/24 18:32 Temperature 36.4 C L Pulse Rate 105 H Respiratory Rate 16 18 16 Blood Pressure 115/62 Pulse Oximetry 95 95 100 Oxygen Delivery Oxygen Flow Rate 10/22/24 18:32 10/22/24 20:00 10/22/24 20:00 Temperature 36.6 C Pulse Rate 72 72 Respiratory Rate 16 18 18 Blood Pressure 109/58 L Pulse Oximetry 95 94 94 Oxygen Delivery Nasal Cannula Oxygen Flow Rate 2 10/22/24 23:25 10/23/24 03:15 10/23/24 08:00 Temperature 36.3 C L 36.3 C L 36.3 C L Pulse Rate 75 78 77 Respiratory Rate 18 20 16 Blood Pressure 100/55 L 106/62 125/72 Pulse Oximetry 94 94 94 Oxygen Delivery Oxygen Flow Rate Intake/Output Intake/Output: Intake & Output 10/20/24 10/21/24 10/22/24 10/23/24 23:59 23:59 23:59 23:59 Intake Total 600 4180 3030 118 Output Total 75 1000 490 200 Balance 525 3180 2540 -82 Meds/Results Medications: Active Medications Generic Name Dose Route Start Last Admin Trade Name Freq PRN Reason Stop Dose Admin Acetaminophen 1,000 mg 10/20/24 18:00 10/23/24 05:25 Acetaminophen 500 Mg Tablet PO 1,000 mg Q6HR RASHID Administration Alvimopan 12 mg 10/21/24 21:00 10/23/24 08:30 Alvimopan 12 Mg Capsule PO 10/28/24 20:59 12 mg Q12HR RASHID Administration Amiodarone HCl 200 mg 10/22/24 09:00 10/23/24 08:30 Amiodarone Hcl 200 Mg Tablet PO 200 mg DAILY RASHID Administration Aspirin 81 mg 10/21/24 09:00 10/23/24 08:30 Aspirin 81 Mg Enteric Tablet PO 81 mg DAILY RASHID Administration Atorvastatin Calcium 40 mg 10/20/24 18:00 10/23/24 08:40 Atorvastatin 40 Mg Tablet PO 40 mg QPM RASHID Administration Enoxaparin Sodium 40 mg 10/21/24 09:00 10/23/24 08:40 Enoxaparin 40 Mg/0.4 Ml Syringe SUB-Q 40 mg DAILY [facility] Administration Morphine Sulfate 30 mg in 30 mls @ 0 mls/hr 10/21/24 14:19 10/22/24 18:32 Morphine Sulfate Saw Tailer IV CONT 0 mg/hr PRN PRN 0 mls/hr [employer] Management Administration Protocol 0 MG/HR Metoprolol Tartrate 25 mg 10/21/24 09:00 10/23/24 08:31 Metoprolol Tartrate 25 Mg Tablet PO 25 mg DAILY [facility] Administration Naloxone HCl 0.1 mg 10/20/24 16:12 Naloxone Hcl 0.4 Mg/Ml Vial IV PUSH Q2M PRN Opiate Reversal Ondansetron HCl 4 mg 10/20/24 16:12 10/20/24 16:48 Ondansetron Inj 4 Mg/2 Ml Vial IV PUSH 4 mg Q4H PRN Administration Nausea And Vomiting Sertraline HCl 50 mg 10/21/24 09:00 10/23/24 08:30 Sertraline Hcl 50 Mg Tablet PO 50 mg DAILY RASHID Administration Spironolactone 25 mg 10/21/24 09:00 10/21/24 09:48 Spironolactone 25 Mg Tablet PO 25 mg DAILY RASHID Administration Labs Labs: Laboratory Results - last 24 hr 10/23/24 06:51 WBC 14.4 H RBC 3.29 L Hgb 10.5 L Hct 32.8 L MCV 99.7 MCH 31.9 MCHC 32.0 RDW 12.5 Plt Count 264 MPV 9.1 Sodium 139 Potassium 3.7 Chloride 104 Carbon Dioxide 31 H Anion Gap 4 BUN 16 Creatinine 0.74 Estim Creat Clear Calc 65 Estimated GFR > 60 Glucose 111 H Calcium 8.9
[2024-10-23 12:00] VITALS: BP 139/69; PULSE 78; RESP 20; TEMP 36.2; O2SAT 95
[2024-10-23 16:00] VITALS: BP 137/96; PULSE 99; RESP 16; TEMP 36.5; O2SAT 91
[2024-10-23 20:00] VITALS: BP 130/69; PULSE 91; RESP 20; TEMP 36.8; O2SAT 94
[2024-10-24] VITALS: BP 101/63; PULSE 97; RESP 16; TEMP 36.7; O2SAT 93
[2024-10-24 04:00] VITALS: BP 106/64; PULSE 82; RESP 16; TEMP 36.7; O2SAT 94
[2024-10-24] MEDS: ACETAMINOPHEN 500 MG TABLET 1000 MG PO ×4 (05:33→23:30)
[2024-10-24 07:16] LABS: Hematocrit 33.4 % (37.0-47.0); Hemoglobin 10.8 g/dL (12.0-15.0); Mean Corpuscular HGB Conc 32.3 g/dl (32-36); Mean Corpuscular Hemoglobin 32.5 pg (26-34); Mean Corpuscular Volume 100.6 fl (80-100); Mean Platelet Volume 9.3 fl (7.4-10.4); Platelet Count Result 304 k/mm3 (150-375); Red Blood Count 3.32 M/mm3 (4.2-5.4); Red Cell Distribution Width 12.3 % (11.5-14.5); White Blood Count 10.7 K/mm3 (4.5-10.0)
[2024-10-24 07:28] LABS: Anion Gap 6 mmol/L (4-12); Blood Urea Nitrogen 17 mg/dL (7-17); Calcium 8.7 mg/dL (8.4-10.2); Carbon Dioxide 31 mmol/L (22-30); Chloride 106 mmol/L (98-107); Estimated CRCL calculation 65 ml/min; Estimated Glomerular Filt Rate > 60; Glucose 107 mg/dL (65-110); Potassium 3.4 mmol/L (3.4-5.0); Sodium 143 mmol/L (137-145)
[2024-10-24 08:00] VITALS: BP 139/72; PULSE 80; RESP 18; O2SAT 94
[2024-10-24] MEDS: ALVIMOPAN 12 MG CAPSULE PO ×2 (08:42→21:05)
[2024-10-24] MEDS: ENOXAPARIN 40 MG/0.4 ML SYRINGE SUB-Q (08:42)
[2024-10-24] MEDS: AMIODARONE HCL 200 MG TABLET PO (08:42)
[2024-10-24] MEDS: METOPROLOL TARTRATE 25 MG TABLET PO (08:42)
[2024-10-24] MEDS: ASPIRIN 81 MG ENTERIC TABLET PO (08:42)
[2024-10-24] MEDS: SERTRALINE HCL 50 MG TABLET PO (08:42)
--- NOTE | 2024-10-24 11:04 | P.PNGS_ITS ---
Progress Note: A&P Assessment and Plan (1) Incarcerated incisional hernia: Code(s): K43.0 - Incisional hernia with obstruction, without gangrene Status: Acute Assessment and Plan: doing well, ADAT, OOB/IS Subjective Subjective Date/Time Seen: 10/24/24 11:04 Interval history: feels good, pain well controlled c po analgesia, +bowel fxn, skyler clears Review of Systems Review of Systems: All systems reviewed & are unremarkable except as noted in HPI and below Exam Const: General: cooperative, comfortable and no acute distress Resp: Auscultation: clear to auscultation bilaterally Cardio: Rate: regular rate Rhythm: regular rhythm GI: Inspection: normal to inspection, distended and incision GI Palp: Yes abdominal tenderness, Yes Soft to palpation and Yes Tenderness to palpation present (GI) Other: JIM x 2 c s/s output Objective Data Vital Signs Vital Signs: Vital Signs - 24 hr 10/23/24 12:00 10/23/24 16:00 10/23/24 20:00 Temperature 36.2 C L 36.5 C 36.8 C Pulse Rate 78 99 91 Respiratory Rate 20 16 20 Blood Pressure 139/69 137/96 H 130/69 Pulse Oximetry 95 91 94 Oxygen Delivery 10/23/24 20:00 10/24/24 00:00 10/24/24 04:00 Temperature 36.7 C 36.7 C Pulse Rate 91 97 82 Respiratory Rate 20 16 16 Blood Pressure 101/63 106/64 Pulse Oximetry 94 93 94 Oxygen Delivery Room Air 10/24/24 08:00 10/24/24 08:00 Temperature Pulse Rate 80 80 Respiratory Rate 18 18 Blood Pressure 139/72 Pulse Oximetry 94 94 Oxygen Delivery Room Air Intake/Output Intake/Output: Intake & Output 10/21/24 10/22/24 10/23/24 10/24/24 23:59 23:59 23:59 23:59 Intake Total 4180 3030 468 1100 Output Total 1000 490 350 330 Balance 3180 2540 118 770 Meds/Results Medications: Active Medications Generic Name Dose Route Start Last Admin Trade Name Freq PRN Reason Stop Dose Admin Acetaminophen 1,000 mg 10/20/24 18:00 10/24/24 05:33 Acetaminophen 500 Mg Tablet PO 1,000 mg Q6HR RASHID Administration Alvimopan 12 mg 10/21/24 21:00 10/24/24 08:42 Alvimopan 12 Mg Capsule PO 10/28/24 20:59 12 mg Q12HR RASHID Administration Amiodarone HCl 200 mg 10/22/24 09:00 10/24/24 08:42 Amiodarone Hcl 200 Mg Tablet PO 200 mg DAILY RASHID Administration Aspirin 81 mg 10/21/24 09:00 10/24/24 08:42 Aspirin 81 Mg Enteric Tablet PO 81 mg DAILY [facility] Administration Atorvastatin Calcium 40 mg 10/20/24 18:00 10/23/24 08:40 Atorvastatin 40 Mg Tablet PO 40 mg QPM RASHID Administration Enoxaparin Sodium 40 mg 10/21/24 09:00 10/24/24 08:42 Enoxaparin 40 Mg/0.4 Ml Syringe SUB-Q 40 mg DAILY [facility] Administration Metoprolol Tartrate 25 mg 10/21/24 09:00 10/24/24 08:42 Metoprolol Tartrate 25 Mg Tablet PO 25 mg DAILY [facility] Administration Morphine Sulfate 2 mg 10/23/24 11:09 Morphine Sulfate (*Crx) 2 Mg/Ml Inj IV PUSH Q4H PRN Pain Rated 7-10 Naloxone HCl 0.1 mg 10/20/24 16:12 Naloxone Hcl 0.4 Mg/Ml Vial IV PUSH Q2M PRN Opiate Reversal Ondansetron HCl 4 mg 10/20/24 16:12 10/20/24 16:48 Ondansetron Inj 4 Mg/2 Ml Vial IV PUSH 4 mg Q4H PRN Administration Nausea And Vomiting Oxycodone/Acetaminophen 1 tablet 10/23/24 11:09 Oxycodone/Acetaminophen (*Crx) 5-325 Mg Tablet PO Q4H PRN Pain Rated 7-10 Sertraline HCl 50 mg 10/21/24 09:00 10/24/24 08:42 Sertraline Hcl 50 Mg Tablet PO 50 mg DAILY [facility] Administration Spironolactone 25 mg 10/21/24 09:00 10/21/24 09:48 Spironolactone 25 Mg Tablet PO 25 mg DAILY [facility] Administration Labs Labs: Laboratory Results - last 24 hr 10/24/24 06:31 WBC 10.7 H RBC 3.32 L Hgb 10.8 L Hct 33.4 L MCV 100.6 H MCH 32.5 MCHC 32.3 RDW 12.3 Plt Count 304 MPV 9.3 Sodium 143 Potassium 3.4 Chloride 106 Carbon Dioxide 31 H Anion Gap 6 BUN 17 Creatinine 0.74 Estim Creat Clear Calc 65 Estimated GFR > 60 Glucose 107 Calcium 8.7
[2024-10-24 12:00] VITALS: BP 131/63; PULSE 77; RESP 18; TEMP 36.9; O2SAT 95
[2024-10-24 16:00] VITALS: BP 135/62; PULSE 76; RESP 18; TEMP 36.8; O2SAT 97
[2024-10-24] MEDS: ATORVASTATIN 40 MG TABLET PO (16:49)
[2024-10-24 20:00] VITALS: BP 126/61; PULSE 70; PULSE 76; RESP 13; RESP 18; TEMP 36.3; O2SAT 94; O2SAT 97
[2024-10-25] VITALS: BP 140/59; PULSE 73; RESP 14; TEMP 36.7; O2SAT 92
[2024-10-25 04:00] VITALS: BP 151/70; PULSE 74; RESP 16; TEMP 36.2; O2SAT 93
[2024-10-25] MEDS: ACETAMINOPHEN 500 MG TABLET 1000 MG PO ×3 (05:25→17:34)
[2024-10-25 08:00] VITALS: BP 147/70; PULSE 72; PULSE 75; RESP 18; RESP 20; TEMP 36.4; O2SAT 93
[2024-10-25] MEDS: ALVIMOPAN 12 MG CAPSULE PO ×2 (09:30→20:48)
[2024-10-25] MEDS: ENOXAPARIN 40 MG/0.4 ML SYRINGE SUB-Q (09:30)
[2024-10-25] MEDS: ASPIRIN 81 MG ENTERIC TABLET PO (09:30)
[2024-10-25] MEDS: METOPROLOL TARTRATE 25 MG TABLET PO (09:30)
[2024-10-25] MEDS: SERTRALINE HCL 50 MG TABLET PO (09:30)
[2024-10-25] MEDS: AMIODARONE HCL 200 MG TABLET PO (09:30)
[2024-10-25 12:00] VITALS: BP 136/58; PULSE 75; RESP 20; TEMP 36.2; O2SAT 93
[2024-10-25 16:00] VITALS: BP 139/60; PULSE 67; RESP 18; TEMP 36.1; O2SAT 95
[2024-10-25] MEDS: polyethylene glycoL 3350 17 GM POWD.PACK PO (17:33)
[2024-10-25] MEDS: ATORVASTATIN 40 MG TABLET PO (17:33)
--- NOTE | 2024-10-25 19:32 | PM.PNGS ---
Progress Note: A&P Assessment and Plan (1) Incarcerated incisional hernia: Code(s): K43.0 - Incisional hernia with obstruction, without gangrene Status: Acute Assessment and Plan: Making steady improvement. Bowels functioning. Pain control improving. Will start MiraLax today. Resume anticoagulation. Drains might be ready to remove tomorrow. Possibly home tomorrow. (2) History of creation of ostomy: Code(s): Z93.9 - Artificial opening status, unspecified Status: Acute Subjective Subjective Date/Time Seen: 10/25/24 19:32 Interval history: Bowels moving. Pain improving. Tolerating regular diet. Ambulating a little better. Exam GI: Inspection: other (JIM's serosanguinous) GI Palp: Yes Soft to palpation, Yes Tenderness to palpation present (GI) (incisional) and No Guarding due to palpation present (GI) Other: Incision dry and intact with jory. Slight ecchymosis at inferior medial edge of ostomy site incision. No definite signs of skin necrosis. No erythema or drainage. Objective Data Vital Signs Vital Signs: Vital Signs - 24 hr 10/24/24 20:00 10/24/24 20:00 10/25/24 00:00 Temperature 97.4 F L 98.1 F Pulse Rate 76 70 73 Respiratory Rate 18 13 14 Blood Pressure 126/61 140/59 L Pulse Oximetry 97 94 92 Oxygen Delivery Room Air 10/25/24 04:00 10/25/24 08:00 10/25/24 08:00 Temperature 97.1 F L 97.5 F L Pulse Rate 74 72 75 Respiratory Rate 16 18 20 Blood Pressure 151/70 H 147/70 H Pulse Oximetry 93 93 93 Oxygen Delivery Room Air 10/25/24 12:00 10/25/24 16:00 Temperature 97.2 F L 96.9 F L Pulse Rate 75 67 Respiratory Rate 20 18 Blood Pressure 136/58 L 139/60 Pulse Oximetry 93 95 Oxygen Delivery Intake/Output Intake/Output: Intake & Output 10/22/24 10/23/24 10/24/24 10/25/24 23:59 23:59 23:59 23:59 Intake Total 3030 468 1580 1370 Output Total 490 350 360 22 Balance 2540 118 1220 1348 Meds/Results Medications: Active Medications Generic Name Dose Route Start Last Admin Trade Name Freq PRN Reason Stop Dose Admin Acetaminophen 1,000 mg 10/20/24 18:00 10/25/24 17:34 Acetaminophen 500 Mg Tablet PO 1,000 mg Q6HR [facility] Administration Alvimopan 12 mg 10/21/24 21:00 10/25/24 09:30 Alvimopan 12 Mg Capsule PO 10/28/24 20:59 12 mg Q12HR RASHID Administration Amiodarone HCl 200 mg 10/22/24 09:00 10/25/24 09:30 Amiodarone Hcl 200 Mg Tablet PO 200 mg DAILY [facility] Administration Aspirin 81 mg 10/21/24 09:00 10/25/24 09:30 Aspirin 81 Mg Enteric Tablet PO 81 mg DAILY [facility] Administration Atorvastatin Calcium 40 mg 10/20/24 18:00 10/25/24 17:33 Atorvastatin 40 Mg Tablet PO 40 mg QPM [facility] Administration Enoxaparin Sodium 40 mg 10/21/24 09:00 10/25/24 09:30 Enoxaparin 40 Mg/0.4 Ml Syringe SUB-Q 40 mg DAILY [facility] Administration Metoprolol Tartrate 25 mg 10/21/24 09:00 10/25/24 09:30 Metoprolol Tartrate 25 Mg Tablet PO 25 mg DAILY [facility] Administration Morphine Sulfate 2 mg 10/23/24 11:09 Morphine Sulfate (*Crx) 2 Mg/Ml Inj IV PUSH Q4H PRN Pain Rated 7-10 Naloxone HCl 0.1 mg 10/20/24 16:12 Naloxone Hcl 0.4 Mg/Ml Vial IV PUSH Q2M PRN Opiate Reversal Ondansetron HCl 4 mg 10/20/24 16:12 10/20/24 16:48 Ondansetron Inj 4 Mg/2 Ml Vial IV PUSH 4 mg Q4H PRN Administration Nausea And Vomiting Oxycodone/Acetaminophen 1 tablet 10/23/24 11:09 Oxycodone/Acetaminophen (*Crx) 5-325 Mg Tablet PO Q4H PRN Pain Rated 7-10 Polyethylene Glycol 17 gm 10/25/24 13:45 10/25/24 17:33 Polyethylene Glycol 3350 17 Gm Powd.Pack PO 17 gm QAM [facility] Administration Sertraline HCl 50 mg 10/21/24 09:00 10/25/24 09:30 Sertraline Hcl 50 Mg Tablet PO 50 mg DAILY [facility] Administration Spironolactone 25 mg 10/21/24 09:00 10/25/24 18:52 Spironolactone 25 Mg Tablet PO Not Given DAILY [facility]
[2024-10-25 20:00] VITALS: BP 128/63; PULSE 69; PULSE 71; RESP 18; TEMP 36.3; O2SAT 95; O2SAT 96
[2024-10-26] VITALS: BP 127/65; PULSE 69; RESP 18; TEMP 36.4; O2SAT 95
[2024-10-26 04:00] VITALS: BP 128/73; PULSE 72; RESP 16; TEMP 36.4; O2SAT 95
[2024-10-26 06:31] LABS: Hematocrit 30.8 % (37.0-47.0); Mean Corpuscular HGB Conc 32.5 g/dl (32-36); Mean Corpuscular Hemoglobin 32.2 pg (26-34); Platelet Count Result 297 k/mm3 (150-375); Red Blood Count 3.11 M/mm3 (4.2-5.4); Red Cell Distribution Width 12.1 % (11.5-14.5); White Blood Count 9.7 K/mm3 (4.5-10.0)
[2024-10-26] MEDS: ACETAMINOPHEN 325 MG TABLET 650 MG PO ×2 (06:32→11:46)
[2024-10-26 06:42] LABS: Anion Gap 7 mmol/L (4-12); Blood Urea Nitrogen 11 mg/dL (7-17); Calcium 8.2 mg/dL (8.4-10.2); Carbon Dioxide 27 mmol/L (22-30); Chloride 106 mmol/L (98-107); Estimated CRCL calculation 96 ml/min; Estimated Glomerular Filt Rate > 60; Glucose 104 mg/dL (65-110); Potassium 3.1 mmol/L (3.4-5.0); Sodium 140 mmol/L (137-145)
[2024-10-26 08:00] VITALS: BP 124/57; PULSE 81; RESP 18; TEMP 37; O2SAT 95
[2024-10-26] MEDS: polyethylene glycoL 3350 17 GM POWD.PACK PO (09:49)
[2024-10-26 09:51] VITALS: PULSE 80
[2024-10-26] MEDS: SPIRONOLACTONE 25 MG TABLET PO (09:51)
[2024-10-26] MEDS: AMIODARONE HCL 200 MG TABLET PO (09:51)
[2024-10-26] MEDS: SERTRALINE HCL 50 MG TABLET PO (09:51)
[2024-10-26] MEDS: ALVIMOPAN 12 MG CAPSULE PO (09:52)
[2024-10-26] MEDS: DABIGATRAN ETEXILATE 150 MG CAPSULE PO (09:52)
[2024-10-26 09:53] VITALS: PULSE 80
[2024-10-26] MEDS: METOPROLOL TARTRATE 25 MG TABLET PO (09:53)
[2024-10-26] MEDS: ASPIRIN 81 MG ENTERIC TABLET PO (09:53)
[2024-10-26 12:00] VITALS: BP 128/67; PULSE 75; RESP 20; TEMP 36.9; O2SAT 99
--- NOTE | 2024-10-26 12:55 | PM.DS ---
DS: Admitting Diagnosis Discharge Date 10/26/2024 Admitting Diagnosis Incarcerated incisional hernia, colostomy status, paroxysmal AFib, coronary artery disease, long-term anticoagulation DS: Discharge Diagnosis Discharge Diagnosis (1) Incarcerated incisional hernia: Code(s): K43.0 - Incisional hernia with obstruction, without gangrene Status: Acute (2) Colostomy status: Code(s): Z93.3 - Colostomy status Status: Acute (3) PAF (paroxysmal atrial fibrillation): Code(s): I48.0 - Paroxysmal atrial fibrillation Status: Acute (4) CAD (coronary artery disease): Qualifiers: Coronary Disease-Associated Artery/Lesion type: unspecified vessel or lesion type [place] vs. transplanted heart: [place] heart Associated angina: without angina Qualified Code(s): I25.10 - Atherosclerotic heart disease of [place] coronary artery without angina pectoris Code(s): I25.10 - Atherosclerotic heart disease of [place] coronary artery without angina pectoris Status: Acute (5) Antiplatelet or antithrombotic long-term use: Code(s): Z79.02 - cereal chemist (current) use of antithrombotics/antiplatelets Status: Acute DS: Summary Hospital Course Reason for hospitalization: Incarcerated incisional hernia Hospital Course: This is a 68-year-old woman who presented with a large incarcerated incisional hernia and an 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 On 10/20/2024 she underwent open takedown of colostomy with colorectal anastomosis, open 12 cm incarcerated incisional hernia repair with Phasix ST mesh, and left external oblique myofascial release. Two subcutaneous drains were placed at the time of surgery. Deleon catheter was left in place. She was admitted to the surgical floor postoperatively for recovery. She was started on a clear liquid diet along with Ensure supplements and Entereg. On postop day 1 she was having difficulty with pain control with p.r.n. oxycodone Dilaudid. 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 She had 1 episode of tachycardia where her heart rate got up to about 150. An EKG was obtained by that point her heart rate returned back down into the 70s and was showing normal sinus rhythm. She was tolerating her clear liquid diet but was not passing any flatus for the 1st couple days postoperatively. On postop day 3 her pain was better controlled and she was transitioned off the MARINE ENGINEERING PROFESSOR to oral pain meds. On postop day 4 she was having bowel movements and passing flatus. Her diet was advanced as tolerated. Her activity was gradually improving with some assistance. On postop day 5 she was tolerating a regular diet and ambulating much better. Her anticoagulation was resumed on postop day 6 and she was feeling comfortable with adequate pain control. Her JIM drains had minimal output and were removed. She was discharged on postop day 6. Status at Discharge Functional status at discharge: uses cane/walker Overall status at discharge: patient is progressing back to baseline Time Spent with Patient Time attestation: Total time spent providing and/or coordinating discharge services: Time spent: Less than 30 minutes Exam Const: General: comfortable and no acute distress Resp: Effort & Inspection: normal respiratory effort Auscultation: clear to auscultation bilaterally Cardio: Rate: regular rate Rhythm: regular rhythm Heart sounds: S1 normal heart sound present and S2 normal heart sound present GI: Inspection: other (JIM's serosanguinous) GI Palp: Yes Soft to palpation, Yes Tenderness to palpation present (GI) (incisional) and No Guarding due to palpation present (GI) Other: Incision dry and intact with jory. Slight ecchymosis at inferior medial edge of ostomy site incision. No definite signs of skin necrosis. No erythema or drainage. DS: Data Data Completed and Pending Completed studies during hospitalization: Pending at discharge 10/20/24 10:19 Surgical [PTH] Routine Surgical [PTH] Routine Surgical [PTH] Routine Labs on day of discharge: Labs from last 24 hours 10/26/24 06:03 WBC 9.7 RBC 3.11 L Hgb 10.0 L Hct 30.8 L MCV 99.0 MCH 32.2 MCHC 32.5 RDW 12.1 Plt Count 297 MPV 9.0 Sodium 140 Potassium 3.1 L Chloride 106 Carbon Dioxide 27 Anion Gap 7 BUN 11 D Creatinine 0.55 L Estim Creat Clear Calc 96 Estimated GFR > 60 Glucose 104 Calcium 8.2 L Discharge Plan Discharge Attending physician on discharge: Devan Villasenor Discharging Clinician: Devan Villasenor Activity: other - see discharge instructions Diet: low fiber Wound Care Instructions: other - see discharge instructions Discharge Instructions: DISCHARGE INSTRUCTION SHEET FOR HERNIA, GALLBLADDER AND APPENDIX SURGERIES DR. VILLASENOR PATIENT TO TAKE HOME 1. May shower in 24 hours, no soaking in bath x 2weeks. 2. Call office for: Wound increasingly painful or bleeding Vomiting Fever of greater than 101 degrees 3. If no bowel movement for three days, take 1 oz. (30 ml) Milk of Magnesia or MiraLax 17g 1 to 2 times daily. 4. No heavy lifting > 10 pounds x6 weeks for hernia repairs 5. No driving for 3 days or while taking narcotic pain medications. 6. Ice to surgical site for 48 hours (30 min on, then 30 min off). 7. Up walking 10-30 minutes three times per day. 8. Resume previous home medications. 9. Follow-up 10-14 days in office for wound check or as previously scheduled. ([phone]) 10. Oral pain medications prescription to be sent to pharmacy. Take Tylenol 500mg every 6 hours and Ibuprofen 600mg every 6 hours for the first 2 days, then as needed. 11. NUTRITION: Start out by drinking fluids and increase your diet as tolerated. If you experience nausea, try dry toast, crackers, and 7-UP. If nausea or vomiting persists, contact your surgeon?s office. 12. Gallbladders-Low Fat Diet for 2 weeks (send care note of low fat diet) 13. Inguinal Hernias-wear scrotal support for 48 hours 14. Abdominal Hernias-if sent home with abdominal binder, wear for the first 2 weeks. Revised December 2018 Patient Language: Frisian Follow-up/Referrals: Devan Villasenor DO [Physician] - Discharge Medications: New oxycodone-acetaminophen [Endocet] 5-325 mg tablet 1 tablet PO Q4H PRN (Reason: pain) Qty: 10 0RF Continued aspirin [Adult Low Dose Aspirin] 81 mg tablet,delayed release (DR/EC) 81 mg PO DAILY Qty: 90 0RF Patient Comments: OK to cont per Dr Villasenor multivitamin Tablet 1 tablet PO DAILY metoprolol tartrate 25 mg tablet 25 mg PO DAILY Patient Comments: Pt takes one tablet daily Rx Instructions: TAKE 1/2 TABLET BY MOUTH TWICE DAILY atorvastatin 40 mg tablet See Rx Instructions .ROUTE .COMPLEX Qty: 90 2RF Dose Instruction: TAKE 1 TABLET BY MOUTH EVERY EVENING Rx Instructions: TAKE 1 TABLET BY MOUTH EVERY EVENING sertraline 50 mg tablet 50 mg PO DAILY Qty: 90 2RF dabigatran etexilate 150 mg capsule 150 mg PO BID Qty: 60 5RF Patient Comments: HOLD for [address] Villasenor spironolactone 25 mg tablet 25 mg PO DAILY Qty: 90 1RF cilostazol 50 mg tablet See Rx Instructions .ROUTE .COMPLEX Qty: 180 2RF Dose Instruction: TAKE 1 TABLET BY MOUTH TWICE DAILY Patient Comments: HOLD [address] Fuentes Rx Instructions: TAKE 1 TABLET BY MOUTH TWICE DAILY amiodarone 200 mg tablet 200 mg PO DAILY Qty: 30 5RF Patient Comments: PT is unsure of this medication, she will call Alfredo Discontinued ciprofloxacin HCl 500 mg tablet See Rx Instructions .Route .COMPLEX Qty: 1 0RF Rx Instructions: Take 1 tablet by mouth at 2:00 PM the day prior to surgery.; metronidazole 500 mg tablet See Rx Instructions .Route .COMPLEX Qty: 3 0RF Rx Instructions: Take 1 tablet by mouth at 1:00PM, 2:00PM, and 11:00PM the day prior to surgery.; Date of admission: 10/20/24 16:12 Primary Care Provider: Kelby Lew Admitting Provider: Devan Villasenor Attending physician on admission: Devan Villasenor Condition: Improved
== END 2024-10-26 14:40 | disposition home or self-care (01) | DRG 346 ==
LOC: ANH3MEDSUR 16:16
PROVIDERS: Anesthesiology; Admitting Provider Surgery; PCP Family Medicine; Visit Provider Surgery
PROC: 0DSM0ZZ Reposition Descending Colon, Open Approach (ICD-10-PCS; CPT 44620; principal; 2024-10-20 07:30)
PROC: 0WQF0ZZ Repair Abdominal Wall, Open Approach (ICD-10-PCS; 2024-10-20 07:30)
DX: K43.0 Incisional hernia with obstruction, without gangrene (principal); I48.0 Paroxysmal atrial fibrillation; I25.10 Atherosclerotic heart disease of native coronary artery without angina pectoris; E78.5 Hyperlipidemia, unspecified; I10 Essential (primary) hypertension; M81.0 Age-related osteoporosis without current pathological fracture; Z96.642 Presence of left artificial hip joint; Z79.02 Long term (current) use of antithrombotics/antiplatelets; Z87.891 Personal history of nicotine dependence; Z93.3 Colostomy status
CPT/HCPCS: 36415; 80048; 84295; 85027; 86850; 86900; 86901; 88302; 88305; 88307; 93005; A9270; C1729; J0690; J1100; J1171; J1650; J1836; J2003; J2250; J2270; J2371; J2405; J2704; J3010; J7030; J7120

== ENCOUNTER 2025-01-20 07:03 | Outpatient (RCR) | payer MEDICARE, SELFPAY ==
[2024-12-08 08:45] VITALS: BMI 25.9
--- NOTE | 2024-12-10 10:13 | P.PNWOUND_ITS ---
Wound Care Note Date/Time: 12/10/24 10:13 History: Patient has an open wound from her recent colostomy takedown and the incisional hernia repair with component separation. She had developed a postoperative subcutaneous seroma and had some necrotic skin between the ostomy site incision the in the midline incision. There has been no signs of infection. Initially she was performing packing changes on 2 open areas along the incision. The the wound is now open enough to require wound VAC placement. The wound VAC was placed on 12/08/2024. She is now here for her 1st wound VAC change. Wound width: 4.5 cm Wound length: 2.5 cm Wound depth: 4.9 cm Drainage: Serous Surrounding tissue appearance: healthy Tunnelin.5 cm in 12 o'clock position Percentage granulation tissue: 100% Assessment and Plan Assessment and plan (1) Postoperative seroma of skin after non-dermatologic procedure: Code(s): L76.34 - Postprocedural seroma of skin and subcutaneous tissue following other procedure Status: Acute Assessment and Plan: * Will continue with wound VAC changes in wound care clinic. Will follow up with patient in 2 weeks in wound care clinic. Wound VAC will help with faster wound healing and continued granulation. (2) Incarcerated incisional hernia: Code(s): K43.0 - Incisional hernia with obstruction, without gangrene Status: Acute (3) Colostomy status: Code(s): Z93.3 - Colostomy status Status: Acute Review of Systems Review of Systems: All systems reviewed & are unremarkable except as noted in HPI and below Exam GI: Other: Postoperative subcutaneous wound just to the left of midline inferior to the umbilicus. Good granulation tissue and no signs of infection.
== END 2025-02-21 08:53 | disposition home or self-care (01) ==
LOC: ANHWOC 07:03
PROVIDERS: PCP Family Medicine; Visit Provider Surgery
DX: K43.2 Incisional hernia without obstruction or gangrene (principal); T81.31XA Disruption of external operation (surgical) wound, not elsewhere classified, initial encounter; Z93.3 Colostomy status
CPT/HCPCS: 97605; 99214; G0463

== ENCOUNTER 2025-04-06 10:08 | Outpatient (CLI) | payer MEDICARE, OTHER, SELFPAY ==
--- NOTE | 2025-04-06 10:18 | ECG_ITS ---
Test Date: 2025-04-06 10:25:35 Measurements Intervals [place] Rate: 69 P: 67 MD: 167 QRS: 55 QRSD: 149 T: 43 QT: 461 QTc: 494 Interpretive Statements SINUS RHYTHM WITH OCCASIONAL VENTRICULAR PREMATURE COMPLEXES RIGHT BUNDLE BRANCH BLOCK BASELINE WANDER- V4-V6 ABNORMAL ECG Compared to ECG 10/22/2024 12:10:11 NO SIGNIFICANT CHANGE Electronically Signed On 04-06-2025 10:38:46 CDT by Curtis Fuentes D.O.
--- OUTSIDE RECORDS SUMMARY | 2025-04-06 10:40 | XMS_ITS | Clinical Summary ---
Author Organization [facility] Address [facility] [place] [address] Care Team Providers Care Clinical Orthoptist Name Role Phone Unavailable Primary Care Provider Unavailabl e Social History Tobacco Use Types Packs/Day Years Used Date Smoking Tobacco: Never Assessed Comments Unknown Sex and Gender Information Value Date Recorded Sex Assigned at Not on file Legal Sex Female 5:55 PM FINISHER HAND Gender Identity Not on file Sexual Orientation Not on file Plan of Treatment Health Maintenance Due Date Last Done Comments Colorectal Cancer Screening Colonoscopy (10 Years) 1955 Hepatitis C 12/16/1975 DTaP, Tdap and Td Vaccines ( 1 - Tdap) 1976 Mammogram Screening 1997 Pneumococcal Vaccine: 50+ Ye ars (1 of 1 - PCV) 12/16/2007 Zoster Vaccines (1 of 2) 12/16/2007 Dexa Scan (General) 2022 COVID-19 Vaccine ( - 2023-2 5 season) 2024 RSV Immunization or 60+ Years (1 [...]
--- OUTSIDE RECORDS SUMMARY | 2025-04-06 10:40 | XMS_ITS | Clinical Summary ---
Author Organization [facility] Address [address] [place] [address] Care Team Providers Care Eyedotter Name Role Phone Kelby Lew Primary Care Provider Jsesi Orellana MD Unavailable [phone] Dmitry Mendoza MD Unavailable [phone] Devan Disla DO Unavailable [phone] Allergies Active Allergy Reactions Criticality Noted Date [...] Diverticulitis large intestine 11/17/2021 Paroxysmal atrial fibrillation 11/17/2021 Assessment & Plan (11/17/2021 3:48 PM CDT): Maintaining SR on IV amiodarone. Will transition to PO when GI tract allows. ACS (acute coronary syndrome) 11/10/2021 Coronary artery disease invo lving [place] coronary artery of [place] heart 09/03/2018 Assessment & Plan (11/17/2021 3:47 PM CDT): Recent non STEMI complicated by cardiogenic shock, salvaged with left main PCI. She remains on cangrelor given ongoing ileus following surgery. Continue cangrelor until GI tract is working. At that point, will need to load with plavix. Hx of CABG 09/03/2018 Hypertension Encounters Date Type Department Care Team Description 03/10/2025 Telephone [facility] G[facility]enter[facility] [address] [place] [address] Medical Office Building [address], [address] [place] [phone] Deloris Ferreira, RN Final attempt to schedule colonoscopy 02/28/2025 Telephone [facility] G[facility]enter[facility] [address] [place] [address] Medical Office Building [address], [address] [place] [phone] Deloris Ferreira, RN Unsuccessful Phone Call 3; Scheduling Appointments 02/22/2025 Telephone [facility] G[facility]enter[facility] [address] [place] [address] Medical Office Building [address], [address] [place] [phone] Deloris Ferreira, RN Scheduling Appointments (Colonoscopy due ); Unsuccessful Phone Call 2 02/01/2025 Telephone [facility] Gastroenter[facility] [address] [place] [address] Medical Office Building [address], [address] [place] [address] Deloris Ferreira RN Scheduling Appointments (Colonoscopy due); Unsuccessful Phone Call 1 from Last 3 Months Surgical History Surgery Date Site/Laterality Comments TOTAL [...] 11/12/2021 How often do you attend chur or buddhism services? Never 11/12/2021 Do you belong to any clubs o r organizations such as cheondoism groups, unions, fraternal or athletic groups, or [...] 9:12 AM CDT Height 172.7 cm (5' 8) 11/28/2023 9:12 AM CDT Body Mass Index 26.61 11/28/2023 9:12 AM CDT Plan of Treatment Health Maintenance Due Date Last Done Comments Breast Cancer Screening-Mammogram 1955 Depression Screening 1955 Hepatitis C Screening 1955 Osteoporosis Screening-Bone Density Scan 1955 DTaP/Tdap/Td Vaccine (1 - Tdap) 1968 Hepatitis B Screening 12/16/1975 Lung Cancer Screening 12/16/2007 Pneumococcal vaccine 65+ (1 of 1 - PCV) 12/16/2007 Zoster Vaccine (1 of 2) 12/16/2007 Well Visit 65+ 2022 Fall Risk Assessment 11/27/2024 11/28/2023 Influenza Vaccine (#1) 2025 06/03/2020 Colon Cancer Screening-Colonoscopy 11/27/20332023, 05/08/2023 Colon Cancer Screening-CT Colonography Discontinued , 05/08/2023 Colon Cancer Screening-DNA Stool Discontinued 11/28/19 24, 05/08/2023 Colon Cancer Screening-FIT Discontinued 11/28/2023, Colon Cancer Screening-Sigmoidoscopy Discontinued 10/31, 05/08/2023 Medical Devices Implanted Type Area Health Safety And Environment Manager Device Identifier Shelf Expiration Date Model / Serial / Lot Tovar [employer] 98587-23 Device Clsr Perclose Prostyle Sut-Mediatd Closure-Repair Sys - S0 - [id number] Implanted:Qty: 1 on 11/10/2021 by Dmitry Mendoza MD at [facility] Other - see comments Left: Femoral [employer] 08/31/2023 99235-02 / [employer] [id number] Device Clsr Perclose Prostyle Sut-Mediatd Closure-Repair Sys - [id number] - [id number] Implanted:Qty: 1 on 11/10/2021 by Dmitry Mendoza MD at [facility] [employer] 08/31/2023 [id number] / [employer] [id number] Device Clsr Perclose Prostyle Sut-Mediatd Closure-Repair Sys - [id number] - [id number] Implanted:Qty: 1 on 11/10/2021 by Dmitry Mendoza MD at [facility] [employer] 08/31/2023 [id number] / Impella Cp Percutaneous Left Ventricular Assist Device [id number] - [id number] - [id number] Implanted:Qty: 1 on 11/10/2021 by Dmitry Mendoza MD at [facility] [employer] 07/01/2023 0048-000 3 / [id number] / [id number] Fondu Garima [id number] Stent Drug Eluting S Yanely Ace Mr [id number] - [id number] - [id number] Implanted:Qty: 1 on 11/10/2021 by Dmitry Mendoza MD at [facility] [employer] Garima 02/06/2022 [id number] / [id number] / [id number] Explanted Type Area Health Safety And Environment Manager Device Identifier Shelf Expiration Date Model / Serial / Lot Genzyme [employer]ur[employer] [id number] Seprafilm 6x5in Barrier Adhesion Sterile Disposable Latex Free - [id number] Explanted:Qty: 1 on 11/14/2021 at [facility] [employer] [id number] / / Procedures Procedure Name Priority Date/Time [...] 11/28/2023 9:23 AM Admit Type: Outpatient Room: [facility] Date of : 1955 Instrument Name: [id number] [...] ofthe bowel preparation was evaluated using the BBPS([place] Bowel Preparation Scale) with scores of: RightColon [...] following this procedure please call my office [phone]). After hours and eveningsplease call [phone] and speak to the GI fellow oncall [...] Most Recently Relevant to Health Maintenance Insurance [facility] MEDICARE CIGNA [facility] Member Subscriber Plan / Payer (Ef fective 2018-Present) Name:Mechelle Jorge Harkins Relation to Subscriber:Self Name:Jorge Min Payer ID:[id number] ([facility]) Group ID:[id number] Type:CIGNA HMO/PPO Address: [facility] [id number] [place] [address] MEDICARE CIGNA Advance Directives For more information, please contact: [phone] * Full Code (Latest Code Status on [...] 8:30 AM 12/06/2021 7:19 PM Care Teams Eyedotter Relationship Specialty Start Date End Date Kelby Lew DO [address] [place] [address] PCP - General Family Medicine 09/14/20 Jessi Orellana MD [address] [place] [address] Referring Physician Surgery 12/05/21 Dmitry Mendoza MD [address] [place] [address] Consulting Physician Cardiovascular Disease 12/05/21 Devan Disla DO [address] [facility] [address] [place] [address] Referring Physician Surgery 03/10/25
--- OUTSIDE RECORDS SUMMARY | 2025-04-06 10:40 | XMS_ITS | Encounter Summary ---
Author Organization [facility] Healthcare Address [address] [place] [address] Care Team Providers Care Roller Mill Tender Name Role Phone Kelby Lew DO Primary Care Provider Jessi Orellana MD Unavailable [phone] Dmitry Mendoza MD Unavailable [phone] Devan Disla DO Unavailable [phone] Encounter Details Date Type Department Care Team (Late st Contact Info) Description 12/06/2021 Telephone [facility] Physical Medicine and Rehabilitation [address] [place] [address] Kalina Basurto, SPORTS ANCHOR Social History Tobacco Use Types Packs/Day Years [...] often do you attend chur ch or voodoo services? Never 11/12/2021 Do you belong to any clubs o r organizations such as adventist groups, unions, fraternal or athletic groups, or [...] 12:36 PM CDT Height 172.7 cm (5' 8) 12/06/2021 12:36 PM CDT Body Mass Index 24.18 12/06/2021 12:36 PM CDT documented in this encounter Miscellaneous Notes * Pre-Admission Screening - Kalina Basurto SLP - 12/06/2021 12:[address] [facility] Physical Medicine and Rehabilitation Preadmission Screening Reason [...] level of care. Patient is currently at . The patient is being referred and [...] rehabilitation risks and benefits. Payor Source: [facility]: [email or web address] Secondary:Authorization number [id number] Case discussed with Dr. Reddy on 12/03/21 [...] and Family: Twice a week ??? Attends [employer]an Services: Never ??? Active Member of Clubs or Organizations: Yes ??? Attends Club or Organization Meetings: More than 4 times per year ??? Marital Status: Patient's Preferred Language: Armenian Cultural Requests During Hospitalization: Closed/Suction/Open Drain 1 [...] female with a history of admission to [facility] where she underwent right hip replacement for [...] nausea, or vomiting. She was brought to for further management. Prior to her procedure [...] and SVG-RCA) in 2018 who transfers from [facility] urgently due to ACS with cardiogenic shock. Patient underwent elective R hip arthroplasty at [facility] on 11/08/21. She was recuperating in the hospital when early this AM she developed nausea, diaphoresis and hypotension. An EKG showed prominent diffuse STD, and troponins were found to be significantly elevated. Initiation of pressor support with levophed was necessary to correct the hypotension. She underwent a CTPE scan which showed no PE. She was taken to their oven laborer earlier this AM where angiography showed patent SVG-RCA; patent GAYLE-LAD however the distal LAD was occluded shortly after the anastomosis fed by R->L collaterals;and a critical 99% hazy lesion of the LM into an ungrafted LCx. At this point transfer was requested to [facility] for high risk intervention. An echo prior to transfer showed LVEF 35-40% without LV thrombus. The patient has continued to require low dose levophed to maintain her BP. Upon arrival to [facility],she reports R hip pain but denies any active chest pain or significant dyspnea. She has not had any subjective or measured fevers post-operatively, and her H&H is stable. Assessment and Plan 65 year old woman with tobacco use, CAD with 2V CABG (GAYLE-LAD and SVG-RCA) in 2018 who transfers from [facility] urgently due to ACS with cardiogenic shock. [...] a family history of diverticular disease. I wasasked to see the patient given her worsening [...] risk for perioperative complications given her recent [place], ANTONIO while on aspirin and plavix. Unfortunatel [...] use, anemia, Afib, CHF,and OA, presented to [facility] as transfer from [facility] for cardiac eval. 1. Sigmoid colon perforation [...] chronic medica problems who was transferred to [facility] secondary to NSTEMI requiring cardiac stenting on [...] at bedside 12/03. She is accepted at [facility], awaiting insurance approval. INTERVAL HISTORY 11/14/2021: EXPLORATORY [...] CHF, and OA,??presented to[facility] as transfer from [facility] for cardiac eval. 1. Sigmoid colon perforation [...] Precautions/Restrictions: Falls, Cardiac Weight Bearing Precautions: WBAT Davis Suicide Severity Rating Scale: Allergies: Allergies Allergen Reactions ??? Penicillins Unknown Has tolerated amoxicillin and piperacillin/tazobactam Code Status: Full Code Vitals: There were no vitals filed for this visit. Current Systems Summary: Height: 172.7 cm (5' 8) Weight: 72.1 kg (159 lb) Diet: Adult [...] 1 packet 1 packet oral BID Afshan Aggarwal, FLOORING MACHINE FEEDER 1 packet at 12/04/212001 ??? ramelteon (ROZEREM) tablet 8 mg 8 mg oral Nightly PRN Monalisa Levine, LILIANA 8 mg at12/03/212207 ??? sertraline (ZOLOFT) tablet 25 mg 25 mg oral Daily Geoffrey Green MD 25 mg at 12/06/21 09 ??? sodium chloride 0.9% flush 5-10 mL 5-10 mL intra-catheter Q12H RASHID Steve Du, DO 10 mL at 12/06/21 09 ??? sodium chloride 0.9% flush 5-20 mL [...] Bed mobility SBA (12/06/2021 12:46 PM) Cognition/Communication/Swallowing: SPORTS ANCHOR Cognition: wfl (12/06/2021 12:46 PM) SPORTS ANCHOR Communication: wfl (12/06/2021 12:46 PM) SPORTS ANCHOR Swallowing: n/a (12/06/2021 12:46 PM) Conditions requiring acute rehab and risk for complications: Gait dysfunction - risk for falls and further injury, fracture Decreased mobility - Risk for Fall, skin breakdown, further injury, decompensation, muscle flaccidity Balance Issues- Risk for Fall, further injury Treatments needed to address conditions requiring acute rehab: Daily Face to Face oversight by a provider, Intense PT/OT/SP, Access to Hand Brush Filler physicians, Frequent Neuro assessment, Cardiac Monitoring Alternative Level of Care considered and not appropriate due to: Consult physician oversight, DailyMD oversight, Diagnostics, Medication adjustment/oversight, Neurochecks Patient/Caregiver Goals: Patient and Family Goals: to return home at [facility] Cosigned by Joanne Reddy MD at [...] the intensive Inpatient rehabilitation program offered at [facility] . documented in this encounter Plan of Treatment Not on file documented as of this encounter Visit Diagnoses Not on filedocumented in this encounter Care Teams Roller Mill Tender Relationship Specialty Start Date End Date Kelby Lew DO [address] [place] [address] PCP - General Family Medicine 09/14/20 Jessi Orellana MD [address] [place] [address] Referring Physician Surgery 12/05/21 Dmitry Mendoza MD [address] [place] [address] Consulting Physician Cardiovascular Disease 12/05/21 Devan Disla DO [address] [place] [address] Referring Physician Surgery 03/10/25 documented as of this encounter
[2025-04-06 11:30] LABS: Alanine Aminotransferase 21 U/L (6-35); Albumin Level 4.3 g/dL (3.5-5.1); Alkaline Phosphatase 115 U/L (38-126); Anion Gap 7 mmol/L (4-12); Aspartate Amino Transferase 29 U/L (14-36); Bilirubin,Total 0.8 mg/dL (0.2-1.3); Blood Urea Nitrogen 12 mg/dL (7-17); Calcium 9.6 mg/dL (8.4-10.2); Carbon Dioxide 26 mmol/L (22-30); Chloride 106 mmol/L (98-107); Cholesterol 155 mg/dL (0-200); Estimated Glomerular Filt Rate > 60; Glucose 125 mg/dL (65-110); HDL Direct 71 mg/dL; Osmolality Calculated 288 mOsm/kg (285-295); Potassium 4.7 mmol/L (3.4-5.0); Sodium 139 mmol/L (137-145); Total Protein 7.3 g/dL (6.3-8.2); Triglycerides 152 mg/dL (<150)
== END 2025-04-06 10:09 | disposition home or self-care (01) ==
LOC: CHSLAB 10:09
PROVIDERS: PCP Family Medicine; Visit Provider Internal Medicine Cardiovascular Disease
DX: I48.0 Paroxysmal atrial fibrillation (principal); E78.5 Hyperlipidemia, unspecified; I45.10 Unspecified right bundle-branch block; R94.31 Abnormal electrocardiogram [ECG] [EKG]
CPT/HCPCS: 36415; 80053; 80061; 93005

== ENCOUNTER 2025-06-09 11:04 | Outpatient (CLI) | payer MEDICARE, OTHER, SELFPAY ==
--- NOTE | ~2025-06-09 | CT_ITS ---
EXAMINATION: CT hip LT wo con COMPARISON: None HISTORY: W19.XXXA - Unspecified fall, initial encounter TECHNIQUE: Axial images were obtained without IV contrast. Sagittal, coronal reconstruction images were obtained from the axial views. CT scan performed using dose optimization techniques including the following automated exposure control; adjustment of mA and/or kV; use of iterative reconstruction technique. Automatic exposure control was used to reduce radiation dose. Permanent radiation dose record is archived to PACS. FINDINGS: Visualized left arthroplasty appears intact with no lucency surrounding the hardware. There is no fracture or dislocation demonstrated. No osseous destruction. No joint effusion. There is a subacute healing fracture of the right superior pubic ramus at its junction with the symphysis pubis The intrapelvic soft tissues appear unremarkable. There is no intramuscular hemorrhage or subcutaneous fluid collection appreciated. IMPRESSION: 1. No acute fracture or dislocation. Arthroplasty appears intact.. 2. Healing subacute right superior pubic ramus fracture detailed Reviewed, dictated and finalized at location P.
== END 2025-06-09 11:05 | disposition home or self-care (01) ==
PROVIDERS: PCP Family Medicine; Visit Provider Family Medicine
DX: S79.912A Unspecified injury of left hip, initial encounter (principal); S32.591D Other specified fracture of right pubis, subsequent encounter for fracture with routine healing; Z96.642 Presence of left artificial hip joint
CPT/HCPCS: 73700

== ENCOUNTER 2025-06-15 10:16 | Outpatient (RCR) | payer MEDICARE, OTHER, SELFPAY ==
--- NOTE | 2025-06-15 10:22 | OPREHPOC ---
Outpatient Therapy Plan of Care This is a Multidisciplinary Plan of Care that may contain components documented by all disciplines (PT, OT, and ST.) PT Problem 1 PT Problem #1 Knowledge Deficit PT Goal 1 Goal / Goal Update independent and compliant with HEP Target Visit 5 PT Problem 2 PT Problem #2 Pain PT Goal 1 Goal / Goal Update decrease pain at worst in the pelvis to 3/10 or less Target Visit 10 PT Problem 3 PT Problem #3 Impaired Strength PT Goal 1 Goal / Goal Update improve bilateral hip strength to 4+/5 or better overall Target Visit 10 PT Problem 4 PT Problem #4 Impaired Balance PT Goal 1 Goal / Goal Update patient to complete 5x sit to pattern painter 15 seconds or less patient to display negative nystagmus or symptoms with valeria hallpike maneuver patient to manage orthostatic hypotension with ankle and LE exercises to reduce risk of fall and injury Target Visit 10 PT Problem 5 PT Problem #5 Impaired Functional Mobility PT Goal 1 Goal / Goal Update patient to DC need of rollator walker LEFS to displaly 40% or less functional deficits Target Visit 10
--- NOTE | 2025-06-15 10:23 | PTOPEVAL1 ---
Assessment and note entered by JT File, PT Evaluation Information Assessment Status Evaluation Diagnosis pelvic fracture ICD-10 Condition Codes (PT) Pain in right hip M25.551,Pain in left hip M25.552 ,Repeated falls R29.6,Difficulty Walking R26.2, Abnormalities of gait and mobility R26.9,Weakness R53.1,BPPV H81.12 Onset 05/30/25 Subjective Information patient fell and fractured the pelvis about 2.5 weeks ago. she was told it is a small fracture. she reports she has difficulty with walking still and standing, but it is getting better. she reports she returns to the MD for follow up before the end of the year. she reports she was not given any specific restrictions. she reports she caught her flip flop on a doorway transition and fell. she has had 3-4 falls in the last 1-1.5 months. she reports she has A-fib. she reports the first fall she is not sure what happened. she reports she fell in a parking lot, the 2nd fall was at home getting up from a recliner and fell. Reported Pain Level Pain Score 5: Self Report Assessment PT Clinical Summary mrs. figueroa is a pleasant 69 yo woman who presents to skilled PT services for evaluation and rehab following falls, pelvic fracture, and decreased strength and functional endurance. she also displays signs and symptoms of orthostatic hypotension and L BPPV. she has rotatory nystagmus to the L side when evaluating BPPV, and positive orthostatic hypotension when going sitting to standing with symptoms both in supine to sit and sit to stand. continued skilled PT is indicated to improve her strength, mm endurance, functional activity performance, and reduce falls and vertigo to improve her objective/functional deficits and progress towards a return to her prior level functional activity performance/quality of life. Plan of Care Interventions Gait Training,Neuro Re-education,Patient/Caregiver Education,Therapeutic Activities,Therapeutic Exercise PT Services Indicated Yes Treatment Frequency and 2x weekly for 10 visits Duration These treatments will address the objective and functional deficits as defined above. The patient will be advanced safely and appropriately in order for the patient to progress towards his/her prior level of function. Additional exercises will be introduced and as well as a comprehensive home exercise program upon discharge, if needed, ?to ensure carryover of functional gains achieved in the clinic. This treatment plan has been reviewed and agreement upon by the patient.
--- NOTE | 2025-06-29 14:03 | OPREHPOC ---
Outpatient Therapy Plan of Care This is a Multidisciplinary Plan of Care that may contain components documented by all disciplines (PT, OT, and ST.) PT Problem 1 PT Problem #1 Knowledge Deficit PT Goal 1 Goal / Goal Update independent and compliant with HEP Target Visit 5 Progress Met PT Goal 2 Goal / Goal Update Continue to progress. PT Problem 2 PT Problem #2 Pain PT Goal 1 Goal / Goal Update decrease pain at worst in the pelvis to 3/10 or less Target Visit 10 Progress Met PT Problem 3 PT Problem #3 Impaired Strength PT Goal 1 Goal / Goal Update improve bilateral hip strength to 4+/5 or better overall Target Visit 10 Progress Not Met PT Goal 2 Goal / Goal Update continue PT Problem 4 PT Problem #4 Impaired Balance PT Goal 1 Goal / Goal Update patient to complete 5x sit to internet marketing consultant 15 seconds or less -not met patient to display negative nystagmus or symptoms with valeria hallpike maneuver -not assessed patient to manage orthostatic hypotension with ankle and LE exercises to reduce risk of fall and injury -met Target Visit 10 Progress Partially Met PT Goal 2 Goal / Goal Update Continue first and second. PT Problem 5 PT Problem #5 Impaired Functional Mobility PT Goal 1 Goal / Goal Update patient to DC need of rollator walker -met LEFS to displaly 40% or less functional deficits - met Target Visit 10 Progress Met PT Goal 2 Goal / Goal Update New Goals: The patient will ambulate 1,000 feet with the least restrictive assistive device during the 6 MWT. The patient will ascend/descend stairs reciprocally without hip pain. The patient will return to driving without hip pain or limitations. Target Visit 10
--- NOTE | 2025-06-29 14:03 | PTOPPROG ---
Assessment and note entered by Jenny Chawla, PT Evaluation Information Assessment Status Progress Diagnosis pelvic fracture ICD-10 Condition Codes (PT) Pain in right hip M25.551,Pain in left hip M25.552 ,Repeated falls R29.6,Difficulty Walking R26.2, Abnormalities of gait and mobility R26.9,Weakness R53.1,BPPV H81.12 Onset 05/30/25 Subjective Information Jorge reports her pain has mostly subsided and she just has occasional achiness in the left groin with weather changes. She has been using her cane primarily for walking around. She has returned to performing independent bathing, grooming, toileting, and cooking. She has not returned to cleaning or driving though. She will see Dr. Lew again in August for a follow up CT. She has not had vertigo but has had dizziness when she first stands. She has been waiting a bit before moving when she first stands. Assessment PT Clinical Summary Jorge Min has completed 6 skilled PT visits for rehab following falls, pelvic fracture, and decreased strength and functional endurance. She is reporting significant reduction in her pain with minimal to no pain noted most of the time. She has been using her cane more for ambulation in her home over the rollator. 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 She demonstrates improved gait, improved balance, and improved strength. Despite these improvements, she continues to have decreased balance, altered gait, decreased bilateral hip strength, and decreased functional mobility. She continues to be an increased fall risk. She will continue to benefit from skilled PT to further address ongoing deficits and improve her independence. Plan of Care Interventions Gait Training,Neuro Re-education,Patient/Caregiver Education,Therapeutic Activities,Therapeutic Exercise PT Services Indicated Yes Treatment Frequency and 1 time a week for 4 visits to total 10 visits Duration These treatments will address the objective and functional deficits as defined above. The patient will be advanced safely and appropriately in order for the patient to progress towards his/her prior level of function. Additional exercises will be introduced and as well as a comprehensive home exercise program upon discharge, if needed, ?to ensure carryover of functional gains achieved in the clinic. This treatment plan has been reviewed and agreement upon by the patient.
--- NOTE | 2025-07-27 13:37 | OPREHPOC ---
Outpatient Therapy Plan of Care This is a Multidisciplinary Plan of Care that may contain components documented by all disciplines (PT, OT, and ST.) PT Problem 1 PT Problem #1 Knowledge Deficit PT Goal 1 Goal / Goal Update independent and compliant with HEP Target Visit 5 Progress Met PT Goal 2 Goal / Goal Update Continue to progress. 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 Progress Partially Met PT Problem 5 PT Problem #5 Impaired Functional Mobility PT Goal 1 Goal / Goal Update patient to DC need of rollator walker -met LEFS to displaly 40% or less functional deficits - met Target Visit 10 Progress Met PT Goal 2 Goal / Goal Update New Goals: The patient will ambulate 1,000 feet with the least restrictive assistive device during the 6 MWT. met The patient will ascend/descend stairs reciprocally without hip pain. met The patient will return to driving without hip pain or limitations. Target Visit 10 Progress Partially Met
--- NOTE | 2025-07-27 13:38 | PTOPDC ---
Assessment and note entered by JT File, PT Evaluation Information Assessment Status Discharge Diagnosis pelvic fracture ICD-10 Condition Codes (PT) Pain in right hip M25.551,Pain in left hip M25.552 ,Repeated falls R29.6,Difficulty Walking R26.2, Abnormalities of gait and mobility R26.9,Weakness R53.1,BPPV H81.12 Onset 05/30/25 Subjective Information patient reports she is doing well. she reports she is feeling stronger overall. she reports she is ready to get back to driving. she reports she has had no falls. she reports she is compliant with her HEP at home. Reported Pain Level Pain Score 0: Self Report Assessment PT Clinical Summary mrs. figueroa presents to skilled PT services for her 10th skilled PT visit. she displays improvements in all objective and functional areas . she has improved ambulation efficiency and endurance, improve stair ambulation performance, improved strength, and improve balance. at this time, she has met or partially met all goals for skilled PT (except for hip strength). she will DC skilled PT, and continue with HEP independent at home. Plan of Care PT Services Indicated Yes
== END 2025-07-27 13:45 | disposition home or self-care (01) ==
LOC: CHSPT 10:16
PROVIDERS: PCP Family Medicine; Visit Provider Family Medicine
DX: S32.599A Other specified fracture of unspecified pubis, initial encounter for closed fracture (principal); M25.552 Pain in left hip; M25.551 Pain in right hip; R29.6 Repeated falls; R26.9 Unspecified abnormalities of gait and mobility; R53.1 Weakness; H81.12 Benign paroxysmal vertigo, left ear
CPT/HCPCS: 95992; 97110; 97112; 97162; 97530; 97750

== ENCOUNTER 2025-08-15 13:16 | Outpatient (CLI) | payer MEDICARE, OTHER, SELFPAY ==
--- NOTE | ~2025-08-15 | XR_ITS ---
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 COMPARISON: No comparisons available. Findings: Bilateral arthroplasties appear intact No significant degenerative changes. Soft tissues unremarkable. Impression: No acute fracture or malalignment. Reviewed, dictated and finalized at location P. WOOD CUTTER Impression: No acute fracture or malalignment.
== END 2025-08-15 13:17 | disposition home or self-care (01) ==
PROVIDERS: PCP Family Medicine; Visit Provider Family Medicine
DX: S32.599A Other specified fracture of unspecified pubis, initial encounter for closed fracture (principal)
CPT/HCPCS: 73521